=== PATIENT | female | born 1995 | race African-American/Black ===

== ENCOUNTER 2024-11-23 21:34 | Emergency (ER) | payer OTHER, SELFPAY ==
[2024-11-23 21:47] VITALS: BP 104/54; PULSE 72; RESP 20; TEMP 36.8; O2SAT 100
[2024-11-24 00:40] LABS: Add Urine Microscopic? YES; Appearance Urine Clear (Clear); Bacteria Urine Rare /hpf; Bilirubin Urine Negative (Negative); Blood Urine Trace (Negative); Color Urine Yellow (Yellow); Glucose Urine UA Negative (Negative); Ketones Urine Negative (Negative); Leukocyte Esterase Ur Negative LEU/UL (Negative); Nitrate Urine Negative (Negative); Non Pathogenic Casts 0-2; Protein Urine Trace mg/dL (Negative); Specific Grav Ur 1.032 (1.001-1.035); Squamous Epithelial Cell Urine Occasional /hpf (Few); WBC Urine 0-5 /hpf (0-3)
--- NOTE | 2024-11-24 03:06 | ED_ITS ---
HPI - General Adult General Chief complaint: Unspecified Stated complaint: and cramping at 13 weeks Time Seen by Provider: 11/24/24 03:07 History of Present Illness HPI narrative: Patient is a 29-year-old female who presents to the emergency department this evening complaining of lower abdominal cramping in her suprapubic region. Patient states that she is approximately 13 weeks , , and is currently denying any vaginal bleeding or spotting. Patient follows up with [facility] with a leather stretcher and sees Dr. Milian as her OBGYN. She has already had a confirmed intrauterine on ultrasound last week and ultrasound revealed subchorionic hemorrhage which her OBGYN is monitoring. Patient denies any additional symptoms including any nausea or vomiting, any urinary symptoms including dysuria. States that while waiting in the emergency department the abdominal cramping has subsided. Denies any additional symptoms or concerns at this time. Related Data Allergies Allergy/AdvReac Type Severity Reaction Status Date / Time No Known Allergies Allergy Verified 11/23/24 21:46 Review of Systems Review of Systems: All systems are reviewed and are negative unless stated otherwise in the HPI. Exam Narrative: General: Alert, awake, afebrile, in no acute distress. HEENT: PERRL, no rhinorrhea, no post nasal drip, oropharynx clear. Neck: Trachea midline, no JVD, no lymphadenopathy. Cardiovascular: Regular rate and rhythm, no murmurs, rubs or gallops, no peripheral edema. Respiratory: Clear to auscultation bilaterally, no tachypnea, no wheezing, no rhonchi, no rubs, no respiratory distress. Abdomen: Soft, nontender, nondistended, no rebound, no guarding, no peritoneal signs. Musculoskeletal: No joint swelling or deformity, normal muscle tone. Skin: No rashes or petechia, no signs of infection. Psychiatric: Alert and oriented, normal behavior and judgment for situation. Neurological: Alert and oriented to person, place, and time. Follows all commands. No focal deficits, speech is clear and fluent. Course Vital Signs Vital signs: Vital Signs Temperature 98.3 F 11/23/24 21:47 Pulse Rate 72 11/23/24 21:47 Respiratory Rate 20 11/23/24 21:47 Blood Pressure 104/54 L 11/23/24 21:47 Pulse Oximetry 100 11/23/24 21:47 Oxygen Delivery Room Air 11/23/24 21:47 Temperature 98.3 F 11/23/24 21:47 Pulse Rate 72 11/23/24 21:47 Respiratory Rate 20 11/23/24 21:47 Blood Pressure 104/54 L 11/23/24 21:47 Pulse Oximetry 100 11/23/24 21:47 Oxygen Delivery Room Air 11/23/24 21:47 Medical Decision Making MDM Narrative Medical decision making narrative: The patient was evaluated by myself in the emergency department. History is obtained from patient who is an independent historian and physical exam was performed. External medical records were reviewed at this time. Urinalysis was obtained revealing no evidence of UTI, 11-20 RBCs. heart tones were attempted using a Doppler, however, we were unsuccessful in obtaining any heart tones. Patient was informed that overnight we do not have ultrasound to perform a formal OB ultrasound. Bedside ultrasound was performed at this time by me and although I was unsuccessful in calculating the heart tones, patient was able to see movement and heart tati which was comforting for the patient. Patient was informed that she can either wait in the ED for ultrasound to come in in 4 hours and perform a formal ultrasound, she can be scheduled for 1 to be obtained at 7 a.m. or she can follow-up with her OBGYN for the ultrasound. At this time, patient elected to follow-up as an outpatient with her OBGYN. Differential diagnosis considerations include intrauterine demise, normal 2nd trimester cramping, threatened miscarriage. Comorbidities impacting this visit include none. I have evaluated and discussed social determinants of health with the patient that could potentially impact subsequent diagnosis and treatment plans. On repeat assessment of the patient, reevaluation revealed that the patient is doing well and is in no acute distress. Patient symptoms have improved since she arrived to our emergency department. Repeat vital signs were all reviewed and noted to be stable. Differential diagnosis and treatment plan were discussed with the patient at bedside. Patient agrees with discussion and after shared medical decision making agrees with discharge. All questions were answered to the patient's satisfaction. Patient will follow up with her BGYN in 3 days. Patient was provided with strict return precautions and instructed to return to the emergency department if any new or worsening symptoms develop. The patient was discharged in stable condition. Vital Signs Vital Signs: Vital Signs Temperature 98.3 F 11/23/24 21:47 Pulse Rate 72 11/23/24 21:47 Respiratory Rate 20 11/23/24 21:47 Blood Pressure 104/54 L 11/23/24 21:47 Pulse Oximetry 100 11/23/24 21:47 Oxygen Delivery Room Air 11/23/24 21:47 Temperature 98.3 F 11/23/24 21:47 Pulse Rate 72 11/23/24 21:47 Respiratory Rate 20 11/23/24 21:47 Blood Pressure 104/54 L 11/23/24 21:47 Pulse Oximetry 100 11/23/24 21:47 Oxygen Delivery Room Air 11/23/24 21:47 Lab Data Labs: Lab Results 11/24/24 Range/Units 00:25 Urine Color Yellow (Yellow) Urine Appearance Clear (Clear) Urine pH 7.0 (5.0-9.0) Ur Specific [place] 1.032 (1.001-1.035) Urine Protein Trace (Negative) mg/dL Urine Glucose (UA) Negative (Negative) mg/dL Urine Ketones Negative (Negative) mg/dL Ur Blood (Man) Trace (Negative) Urine Nitrate Negative (Negative) Urine Bilirubin Negative (Negative) Urine Urobilinogen 1.0 (<2.0) mg/dL Leukocyte Esterase Rfl Negative (Negative) BESSIE/UL Urine RBC 11-20 H (0-2) /hpf Urine WBC 0-5 (0-3) /hpf Ur Squamous Epith Cells Occasional (Few) /hpf Urine Bacteria Rare /hpf Urine Casts 0-2 Discharge Plan Discharge Clinical Impression: Abdominal cramping, Second trimester Patient Disposition: Home, Self-Care Condition: Improved Instructions: Antibiotic Form, Abdominal Pain in (ED) Additional Instructions: Please follow-up with your OBGYN within the next 2-3 days. Return to the ED if any new or worsening symptoms develop. Patient Language: [place]ik Follow-up/Referrals: Hernán Milian MD [Physician] - 3 Days PHYSICIAN NOT ON STAFF,NONSTAFF [Primary Care Provider] - Time of Disposition: 04:12
[2024-11-24 03:35] LABS: BEDSIDEPREGUCG Positive (Negative)
--- OUTSIDE RECORDS SUMMARY | 2024-11-24 03:51 | XMS_ITS | Data Portability ---
Author Organization [facility] [place] Address [address] [place] [address] Care Team Providers Care Beamer Helper Name Role Phone HOLLIS ZARAGOZA Primary Care Provider Assessment Encounter Date Assessment Date Assessment LastModified by Organization Details LastModified Time 01/05/2023 01/05/2023 normal pp visit Not availab le 01/05/2023 14:57:33 10/17/2024 10/17/2024 Annual gynecological exam performed. Patient will come back in a year unless there are new symptoms. Suggested Calcium with Vitamin D 1200-1500mg daily. Patient advised to get an annual flu shot in the fall and she could obtain at [facility] or [facility] clinic. Also to obtain TDap vaccination if you have not had one in the last 10 years. Recommend yearly mammograms. Encouraged monthly self breast exams. Encourage safe sexual practices, to use condoms and limit partners if not already in a monogamous relationship. Engage in daily exercise of low impact aerobic exercise 45-60 minutes 4-5 times weekly. Avoid tobacco and illicit drugs as well as using moderation with alcohol intake less than 1-2 8 oz beverages daily. This lifestyle behavior pattern will lead to less health conditions and longer life span. If BMI greater than 25 weight watchers or dietary consult advised. All questions have been answ ered. Patient appears to understand information, but if you have any questions please call or respond to this email. pap collected reviewed education and precautions ovarian cyst and subchorionic hemorrhage f/u new ob and first look at 12 weeks Not available 10/17/2024 16:06:44 Plan of Treatment Reminders Order Date Submit Date Provider Last Modified By Organization Details Last Modified Time Details Appointments U/S OB GROWTH 2024 09:30A M ULTRASOUND Not available Not available Not available OB ROUTINE 2024 10:15A M Jammie Silvestre CNM Not available Not available Not available Lab culture , urine 2024 025 [facility] (Lab), [address], [place], [address], 11/17/2024 01:10:10 Referral None recorde d. Procedures None recorde d. Surgeries None recorde d. Imaging US, obstetr ic, nuchal translu cency [address], [address], [place], [address], 11/14/2024 21:43:51 US, obstetr ic, 1st trimest er [address] [facility] [address], [place], [address], 11/14/2024 21:43:51 Medication Orders ondanse lebron 4 mg disinte grating tablet [address]/Pharmacy #[id number], [id number], [address], 10/17/2024 16:07:19 Slynd 4 mg (28) tablet 2022 023 [email or web address] [id number], [address], [place], [id number], 10/17/2024 15:47:18 Patient TargetsNo targets recorded. Patient InstructionsNo instructions recorded. Reason for Referral None Reported. Results Created Date Observation Date Name Description Value Unit Range Abnormal Flag Note LastModifiedBy Organization Detail LastModifiedTime 11/21/19 25 11/21/2024 [UNIT Y] ANEUP LOIDY NIPT fraction 5.1% normal Not Available [facility]hsan monge [address], [place], [address], 11/21/2024 01:56:12 11/21/19 25 11/21/2024 [UNIT Y] ANEUP LOIDY NIPT 22Q11.2 microdeletio n LOW RISK <1 in 10,000 normal Not Available [facility] [address] [facility], [place], [address], 11/21/2024 01:56:12 11/21/19 25 11/21/2024 [UNIT Y] ANEUP LOIDY NIPT sex chromosome aneuploidy NOT DETECT ED normal Not Available [facility] [address] [facility], [place], [address], 11/21/2024 01:56:12 11/21/19 25 11/21/2024 [UNIT Y] ANEUP LOIDY NIPT monosomy X LOW RISK <1 in 10,000 normal Not Available [facility] [address] [facility], [place], [address], 11/21/2024 01:56:12 11/21/19 25 11/21/2024 [UNIT Y] ANEUP LOIDY NIPT trisomy 13 LOW RISK <1 in 10,000 normal Not Available [facility] [address] [facility], [place], [address], 11/21/2024 01:56:12 11/21/19 25 11/21/2024 [UNIT Y] ANEUP LOIDY NIPT trisomy 18 LOW RISK <1 in 10,000 normal Not Available [facility] [address] [facility], [place], [address], 11/21/2024 01:56:12 11/21/19 25 11/21/2024 [UNIT Y] ANEUP LOIDY NIPT trisomy 21 LOW RISK <1 in 10,000 normal Not Available [facility] [address] [facility], [place], [address], 11/21/2024 01:56:12 11/21/19 25 11/21/2024 [UNIT Y] ANEUP LOIDY NIPT sex FEMALE normal Not Available [facility] [address], [place], [address], 11/21/2024 01:56:12 11/21/19 25 11/21/2024 [UNIT Y] ANEUP LOIDY NIPT gestation SINGLE TON normal Not Available [facility] [address], [place], [address], 11/21/2024 01:56:12 11/21/19 25 11/21/2024 [UNIT Y] ANEUP LOIDY NIPT for detailed report, see pdf See PDF normal Not Available [facility] [address], [place], [address], 11/21/2024 01:56:12 10/17/19 25 10/17/2024 IMAGE GUIDE D PAP, REFLE X HPV IF ASCUS ONLY image guided Pap, reflex HPV ASCUS only SEE RESULT S BELOW CASE REPOR T: Cytol ogy Gynec ologi mumtaz Repor t Case: [id number] Autho jorge g Provi bianka: Jammie Nash NP Colle cted: 10/17 1659 Order ing Locat ion: [place] [facility] Recei ritesh: 10/18 0835 First Scree n: Aden [place] , [place] Rescr een: DeLsaba a, Mindy, [place] Speci men: Scree mike Pap - Image d, Cervi x STATE MENT OF ADEQU ACY: Satis facto ry for evalu ation Trans forma tion zone compo nent absen t The absen ce of an endoc ervic al compo nent was confi rmed by an addit ional scree ner. ----- ----- ----- ----- ----- ----- ----- ----- ----- ----- ----- ----- ----- ----- ----- ----- ----- ---- FINAL DIAGN OSIS: Negat mendy for Intra epith elial Lesio n or Flores tavares (NIL) . Shift in pradeep sugge stive of bacte rial vagin osis. Elect heidy amyaa d by Mindy davis, [place] on 2024 at 1742 COMMUNICABLE DISEASE SPECIALIST ----- ----- ----- ----- ----- ----- ----- ----- ----- ----- ----- ----- ----- ----- ----- ----- ----- ---- COMME NT: Slide scree luiza ismael garcia due to rejec tion by the Thinp rep Imagi ng Syste m. CLINI MUMTAZ INFOR MATIO N: Menst rual Statu s: LMP (if appli cable ): Clini mumtaz Histo ry/Pr eviou s Pap: Type of Neopl ellie (if appli cable ): Signi fican t Clini mumtaz Findi ngs: Other Histo ry: Hormo taylor (if appli cable ): PAP EDUCA ERIK L NOTE: The Pap Test is a scree mike test with an inher ent false negat mendy rate. Liqui d-bas ed sampl ing may decre ase, but will not elimi flaquita, false negat mendy resul ts. A negat mendy resul t does not precl ude the prese nce and/o r devel opmen t of disea se, since the prese nce of abnor mal cells in the sampl e depen ds on the locat ion of the lesio n and sampl ing techn ique. Vimal nued regul ar scree mike is the best metho d of cance r preve ntion . If repor etta cytol ogic findi ng do not corre late with physi mumtaz and/o r histo rical findi ngs, furth er inves tigat ion is recom jeremy d, as victoriano simpson nted. Not Available [facility] (Lab) [address], [place], [address], 10/24/2024 18:45:54 10/17/19 25 10/17/2024 TRICH OMONA S VAGIN ANATOLIY (RRNA ) trichomonas vaginalis ribosomal RNA (rrna) Negati ve negati ve Not Available [facility] (Lab) [address], [place], [address], 10/24/2024 18:45:55 10/17/19 25 10/17/2024 CT/GC (STEVEN) , THINP REP VIAL chlamydia trachomatis, PCR Negati ve negati ve Not Available [facility] (Lab) [address], [place], [address], 10/24/2024 18:45:55 10/17/19 25 10/17/2024 CT/GC (STEVEN) , THINP REP VIAL neisseria gonorrhoeae, PCR Negati ve negati ve Not Available [facility] (Lab) [address], [place], [address], 10/24/2024 18:45:55 11/14/19 25 11/14/2024 CBC W/DIF F WBC 7.5 10'3/ uL 3.5-10 .5 Not Available [facility] (Lab) [address], [place], [address], 11/16/2024 01:44:27 11/14/19 25 11/14/2024 CBC W/DIF F RBC 4.24 10'6/ uL (based on docume nted legal sex) 3.80-5 .20 Not Available [facility] (Lab) [address], [place], [address], 11/16/2024 01:44:27 11/14/19 25 11/14/2024 CBC W/DIF F HGB 12.3 g/dL (based on docume nted legal sex) 11.6-1 5.4 Not Available [facility] (Lab) [address], [place], [address], 11/16/2024 01:44:27 11/14/19 25 11/14/2024 CBC W/DIF F HCT 37.0 % (based on docume nted legal sex) 34.0-4 5.0 Not Available [facility] (Lab) [address], [place], [address], 11/16/2024 01:44:27 11/14/19 25 11/14/2024 CBC W/DIF F MCV 87.3 fL 80.0-9 9.0 Not Available [facility] (Lab) [address], [place], [address], 11/16/2024 01:44:27 11/14/19 25 11/14/2024 CBC W/DIF F MCH 29.0 pg 27.0-3 4.0 Not Available [facility] (Lab) [address], [place], [address], 11/16/2024 01:44:27 11/14/19 25 11/14/2024 CBC W/DIF F MCHC 33.2 g/dL 32.0-3 5.5 Not Available [facility] (Lab) [address], [place], [address], 11/16/2024 01:44:27 11/14/19 25 11/14/2024 CBC W/DIF F RDW 12.9 % 11.0-1 5.0 Not Available [facility] (Lab) [address], [place], [address], 11/16/2024 01:44:27 11/14/19 25 11/14/2024 CBC W/DIF F plt 356 10'3/ uL 150-40 0 Not Available [facility] (Lab) [address], [place], [address], 11/16/2024 01:44:27 11/14/19 25 11/14/2024 CBC W/DIF F MPV 10.6 fL 8.8-12 .1 Not Available [facility] (Lab) [address], [place], [address], 11/16/2024 01:44:27 11/14/19 25 11/14/2024 CBC W/DIF F neutrophils 65.2 % 34.0-7 3.0 Not Available [facility] (Lab) [address], [place], [address], 11/16/2024 01:44:27 11/14/19 25 11/14/2024 CBC W/DIF F lymphocytes 24.7 % 15.0-5 0.0 Not Available [facility] (Lab) [address], [place], [address], 11/16/2024 01:44:27 11/14/19 25 11/14/2024 CBC W/DIF F monocytes 8.0 % 1.0-15 .0 Not Available [facility] (Lab) [address], [place], [address], 11/16/2024 01:44:27 11/14/19 25 11/14/2024 CBC W/DIF F eosinophils 0.9 % 0.0-8. 0 Not Available [facility] (Lab) [address], [place], [address], 11/16/2024 01:44:27 11/14/19 25 11/14/2024 CBC W/DIF F basophils 0.7 % 0.0-2. 0 Not Available [facility] (Lab) [address], [place], [address], 11/16/2024 01:44:27 11/14/19 25 11/14/2024 CBC W/DIF F immature granulocytes 0.5 % no define d refere nce range Immat ure Granu locyt es (IG) repre sents autom ated enume ratio n of Metam yeloc ytes, Myelo cytes and Promy elocy marimar when IG is < 5%. Blast s are not inclu ded in IG and repor etta separ ately if prese nt. Not Available [facility] (Lab) [address], [place], [address], 11/16/2024 01:44:27 11/14/19 25 11/14/2024 CBC W/DIF F absolute neutrophils 4.9 10'3/ uL 1.5-8. 0 Not Available [facility] (Lab) [address], [place], [address], 11/16/2024 01:44:27 11/14/19 25 11/14/2024 CBC W/DIF F absolute lymphocytes 1.9 10'3/ uL 1.0-4. 0 Not Available [facility] (Lab) [address], [place], [address], 11/16/2024 01:44:27 11/14/19 25 11/14/2024 CBC W/DIF F absolute monocytes 0.6 10'3/ uL 0.2-1. 0 Not Available [facility] (Lab) [address], [place], [address], 11/16/2024 01:44:27 11/14/19 25 11/14/2024 CBC W/DIF F absolute eosinophils 0.1 10'3/ uL 0.0-0. 6 Not Available [facility] (Lab) [address], [place], [address], 11/16/2024 01:44:27 11/14/19 25 11/14/2024 CBC W/DIF F absolute basophils 0.1 10'3/ uL 0.0-0. 3 Not Available [facility] (Lab) [address], [place], [address], 11/16/2024 01:44:27 11/14/19 25 11/14/2024 CBC W/DIF F absolute immature granulocytes 0.0 10'3/ uL 0.00-0 .10 Refer ence range s for nonbi nary/ inter sex or unspe cifie d gende r patie nts have not been estab lishe d. Pleas e refer to the follo wing table for range s estab lishe d for cisge nder patie nts and evalu ate in the clini mumtaz charlie xt of the indiv idual patie nt: https :[email or web address] linetteand book. nm.or g/Gen derX Not Available [facility] (Lab) [address], [place], [address], 11/16/2024 01:44:27 11/14/19 25 11/14/2024 HEPAT ITIS C ANTIB NIMISHA SCREE N, REFLE X TO CONFI RMATI ON hepatitis C antibody Non-re active non-re active Antib odies to HCV Not Detec etta, does not exclu de the possi bilit y of expos ure to HCV. Not Available [facility] (Lab) [address], [place], [address], 11/16/2024 01:44:28 11/14/19 25 11/14/2024 HIV 1/2 ANTIG EN/AN TIBOD Y, REFLE X CONFI RMATI ON HIV antigen/anti body Nonrea ctive nonrea ctive HIV-1 antig en and HIV-1 /HIV- 2 antib odies were not detec etta. No labor atory evide nce of HIV infec tion. Not Available [facility] (Lab) [address], [place], [address], 11/16/2024 01:44:28 11/14/1911/14/2024 HEPAT ITIS B SURFA CE ANTIG EN hepatitis B surface antigen Non-re active non-re active This assay was perfo rmed using [employer] ratio n reage nts and test kits. Value s obtai luiza with other assay metho ds or kits canno t be used inter alvarez eably . Not Available [facility] (Lab) [address], [place], [address], 11/16/2024 01:44:28 11/14/19 25 11/14/2024 TSH, REFLE X FREE T4 TSH 2.25 uIU/m L 0.30-5 .33 Not Available [facility] (Lab) [address], [place], [address], 11/16/2024 01:44:29 11/14/19 25 11/14/2024 RUBEL LA IGG ANTIB NIMISHA, QUANT rubella antibodies, IgG Reacti ve reacti ve Not Available [facility] (Lab) [address], [place], [address], 11/16/2024 01:44:29 11/14/19 25 11/14/2024 RUBEL LA IGG ANTIB NIMISHA, QUANT rubella antibodies, IgG quant 88.9 IU/mL >=10 Non-r eacti ve (Non- Immun e) <10 IU/mL React mendy (Immu ne) > or = 10 IU/mL Not Available [facility] (Lab) [address], [place], [address], 11/16/2024 01:44:29 11/14/19 25 11/14/2024 TYPE/ RH/SC REEN ABO/Rh type A POS Not Available [facility] (Lab) [address], [place], [address], 11/16/2024 01:44:29 11/14/19 25 11/14/2024 TYPE/ RH/SC REEN antibody screen NEG Not Available [facility] (Lab) [address] [place], [address], 11/16/2024 01:44:29 11/14/19 25 11/14/2024 TYPE/ RH/SC REEN exp date 2024 23:59 Not Available [facility] (Lab) [address], [place], [address], 11/16/2024 01:44:29 11/14/19 25 11/14/2024 HEMOG LOBIN A1C hemoglobin A1C 4.6 % 4.0-5. 6 The Ameri can Diabe marimar [employer] iatio n recom mends that a prima ry goal of ruma pacheco be a HBA1C of < 7% and that physi negro pacheco reeva luate the treat ment regim en in patie nts with HBA1C value s consi stent ly > 8%. <5.7% Josselyn l 5.7 - 6.4% Incre ased risk for diabe marimar >=6.5 % Diagn ostic of diabe marimar <7.0% Goal of thera py >8.0% Actio n sugge sted Not Available [facility] (Lab) [address], [place], [address], 11/16/2024 01:44:29 11/14/1911/14/2024 RPR SCREE N, REFLE X TITER /CONF IRMAT ION RPR screen Nonrea ctive nonrea ctive Not Available [facility] (Lab) [address], [place], [address], 11/16/2024 01:44:30 11/14/1911/14/2024 CULTU RE: URINE result report SEE RESULT S BELOW Test: Cultu re: Urine Speci men Sourc e: Urine - Clean Catch Speci men Type: Urine Speci men Date: 2024 1430 Resul t Date: 2024 0006 Resul t Statu s: Final resul t Abnor mal: No Resul ting Lab: [facility] [address] [facility] [address] Tel: CULTU RE ----- ----- ----- --- Organ ism(s ) consi stent with uroge nital or skin pradeep . Repea t cultu re if sympt oms indic ate. Not Available [facility] (Lab) [address], [place], [address], 11/17/2024 01:10:10 10/17/1910/17/2024 US, obste tric, 1st trime ster No observ ation record ed. [email or web address] [address] [facility], [place], [address], 10/17/2024 18:04:25 11/14/19 25 11/14/2024 US, obste tric, nucha l trans lucen cy No observ ation record ed. [email or web address] [place] [address], [place], [address], 11/14/2024 12:49:58 11/14/19 25 11/14/2024 US, obste tric, 1st trime ster No observ ation record ed. [email or web address] [place] [address], [place], [address], 11/14/2024 12:50:09 11/14/19 25 11/14/2024 US, obste tric, follo w-up No observ ation record ed. [address], [place], [address], 11/20/2024 09:41:13 Result Notes None recorded. Problems Name Problem SNOMED Code Status Onset Date Resolution Date Notes Provider Name and Address Organization Details Recorded Time Pregnanc y 57531790 Completed 202101/05/2023 Emily chaney [facility] 5 11:24:34 Transien t hyperten boris of pregnanc y - delivere d 062403108 Completed late in ttrimest er delivere d at 38 weeks Emily chaney [facility] 3 14:27:48 Lesion of vulva 614318951 Completed subcutan eous vulvar nodule 1 cm, mobile, smooth, feels benign. To observe. Emily chaney [facility] 3 14:27:48 Family history of leukemia 998485397 Completed daughter - Dx at 3 y/o Emily chaney [facility] 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 3 14:27:48 Acute depressi on 595161326 Completed zoloft 07/23 Emily Rivas null, [facility] 3 14:27:48 Low back pain 093464168 Completed flank pain, left side Emily Oswaldyessi chaney, [facility] 3 14:27:48 Anemia 681710654 Completed 2021 slowfe 1 tab daily Emily chaney, [facility] 3 14:27:48 Pregnanc y 73595517 Active 2024 Emily Rivas ritu [facility] 5 11:24:34 Problem Notes None recorded. Procedures Surgical History Date Name Laterality Status Provider Name and Address Organization Details Recorded Time 10/17/19 25 Date of Last Pap Smear completed Emily Rivas [facility] 10/17/2024 15:55:13 10/17/19 21 Nexplanon Removal completed Jammie Silvestre CNM [address], [place], [address], [facility] 10/17/2020 14:29:39 10/03/19 13 extraction of wisdom tooth completed Emily Rivas [facility] 10/01/2022 11:01:55 Imaging Results Imaging Date Name Status LastModified by Organization Details LastModified Time 10/17/2024 US, obstetric, 1st trimester completed daniel [address], [place], [address], 10/17/2024 18:04:25 11/14/2024 US, obstetric, nuchal translucency completed [email or web address] [place] [address], [place], [address], 11/14/2024 12:49:58 11/14/2024 US, obstetric, 1st trimester completed [email or web address] [place] [address], [place], [address], 11/14/2024 12:50:09 11/14/2024 US, obstetric, follow-up completed [email or web address] [facility], [place], [address], 11/20/2024 09:41:13 Procedure Notes None recorded. Medical Equipment None Reported. Allergies No known drug allergies Medications Name Sig Start Date Stop Date Status Note LastModified by Organization Details LastModified Time prednison e 10 mg tablet 02/08 completed Not Available Not Available Not Available loperamid e 2 mg capsule 10/17 completed Not Available Not Available Not Available metronida zole 500 mg tablet TAKE 1 TABLET BY MOUTH EVERY 12 HOURS FOR 7 DAYS 11/14 completed Not Available Not Available Not Available Tamiflu 75 mg capsule Take 1 capsule every day by oral route as directed for 10 days. 2024 active Not Available Not Available Not Avai lable acetamino phen 500 mg tablet 10/17 completed Not Available Not Available Not Available levothyro xine 25 mcg tablet TAKE 1 TABLET BY MOUTH EVERY DAY 11/24 completed Not Available Not Available Not Available levothyro xine 75 mcg tablet TAKE 1 TABLET BY MOUTH EVERY DAY 10/17 completed Not Available Not Available Not Available amoxicill in 875 mg tablet 10/17 completed Not Available Not Available Not Available benzonata te 100 mg capsule TAKE 1 CAPSULE BY MOUTH THREE TIMES A DAY NEEDED FOR COUGH 10/17 completed Not Available Not Available Not Available levothyro xine 50 mcg tablet TAKE 1 TABLET BY MOUTH EVERY DAY 11/24 completed Not Available Not Available Not Available lidocaine 5 % topical patch 10/17 completed Not Available Not Available Not Available norethind elvis acetate 1 mg-ethiny l estradiol 20 mcg tablet TAKE 1 TABLET BY MOUTH EVERY DAY 10/17 completed Not Available Not Available Not Available ibuprofen 600 mg tablet 10/17 completed Not Available Not Available Not Available methylpre dnisolone 4 mg tablets in a dose pack TAKE 6 TABLETS ON DAY 1 DIRECTED ON PACKAGE AND DECREASE BY 1 TAB EACH DAY FOR A TOTAL OF 6 DAYS 10/17 completed Not Available Not Available Not Available ondansetr on 4 mg disintegr ating tablet Place 1 tablet every 8 hours by translin gual route. active Not Available Not Available No t Available sertralin e 50 mg tablet TAKE 1/2 TABLET BY MOUTH DAILY FOR 1 WEEK THEN TAKE 1 TABLET BY MOUTH DAILY 10/17 completed Not Available Not Available Not Available amoxicill in 875 mg-potass ium clavulana te 125 mg tablet TAKE ONE TABLET 2 TIMES A DAY UNTIL GONE 10/17 completed Not Available Not Available Not Available nitrofura ntoin monohydra te/macroc rystals 100 mg capsule TAKE 1 CAPSULE BY MOUTH EVERY 12 HOURS 09/17 completed Not Available Not Available Not Available Vitamin active Not Available Not Available Not Available Nexplanon 68 mg subdermal implant Inject by subcutan eous route. 02/08 completed nexplano n inserted 8 and will 1 Not Available Not Available Not Available Simpesse 0.15 mg-30 mcg (84)/10 mcg(7) tablets,3 month dose pack Take 1 tablet every day by oral route. 10/17 completed Not Available Not Available Not Available Slynd 4 mg (28) tablet Take 1 tablet every day by oral route. 10/17 completed Not Available Not Available Not Available Paxlovid 300 mg (150 mg x 2)-100 mg tablets in a dose pack PLEASE SEE ATTACHED FOR DETAILED DIRECTIO NS 10/17 completed Not Available Not Available Not Available Vitals Date Recorded Body height Body mass index (BMI) Body weight Systolic blood pressure Diastolic blood pressure Provider Name and Address Organization Details Last Updated DateTime 01/05/2023 160.02 cm 33.7 kg/m2 34921.55 g 86 mm[Hg] 60 mm[Hg] Emily Rivas [facility] 3 14:40:05 Date Recorded Body height Body mass index (BMI) Body weight Systolic blood pressure Diastolic blood pressure Provider Name and Address Organization Details Last Updated DateTime 10/17/2024 160.02 cm 32.8 kg/m2 31481.59 g 100 mm[Hg] 63 mm[Hg] Emily Rivas [facility] 5 15:46:42 Date Recorded Body height Body mass index (BMI) Body weight Systolic blood pressure Diastolic blood pressure Provider Name and Address Organization Details Last Updated DateTime 11/14/2024 160.02 cm 32.1 kg/m2 40041.22 g 97 mm[Hg] 65 mm[Hg] Emily Rivas [facility] 5 11:23:13 Social History Question Answer Notes LastModified by Organizat ion Details LastModified Time Tobacco Smoking Status Never Smoker María Galvin ritu, [facility] 05/05/2022 14:01:05 What Is Your Level Of Alcohol Consumption? None [email or web address] Information not available 10/17/2024 If You Are , What Was Your Level Of Alcohol Consumption Prior To ? Occasional [email or web address] Information not available 05/05/2022 Are You Blind Or Do You Have Difficulty Seeing? No Information n ot available 02/08/2022 What Is Your Level Of Caffeine Consumption? Moderate [email or web address] Information not available 10/17/2020 In The 14 Days Before Symptom Onset, Have You Had Close Contact With A Laboratory-confirm ed COVID-19 While That Case Was Ill? No [email or web address] Information n ot available 11/05/2022 In The 14 Days Before Symptom Onset, Have You Had Close Contact With A Person Who Is Under Investigation For COVID-19 While That Person Was Ill? No [email or web address] Information not available 11/05/2022 Have You Been To An Area Known To Be High Risk For COVID-19? No [email or web address] Information not available 11/05/2022 Are You Deaf Or Do You Have Serious Difficulty Hearing? No Information not available 02/08/2022 What Type Of Diet Are You Following? REGULAR Information n ot available 02/08/2022 Have You Ever Been Counseled For Unhealthy Alcohol Use? No [email or web address] Information not available 05/05/2022 Do You Use Your Seat Belt Or Car Seat Routinely? Yes Information not available 11/05/2022 Do You Have Smoke And Carbon Monoxide Detectors In Your Home? Yes [email or web address] Information not available 11/05/2022 Do You Feel Stressed (tense, Restless, Nervous, Or Anxious, Or Unable To Sleep At Night)? [id number] [email or web address] Information not available 11/05/2022 Do You Use Any Illicit Or Recreational Drugs? No [email or web address] Information not available 10/17/2020 Do You Use Sunscreen Routinely? Yes [email or web address] Information not available 11/05/2022 Has Tobacco Cessation Counseling Been Provided? No [email or web address] Information not available 05/05/2022 Do You Or Have You Ever Used Any Other Forms Of Tobacco Or Nicotine? No [email or web address] Information not available 05/05/2022 Sex: Unknown Functional Status Question Answer Note LastModified by Organizat ion Details LastModified Time Do you have difficulty walking or climbing stairs? No [email or web address] Information not available 05/05/2022 Are you able to walk? [email or web address] Information not available 02/08/2022 Are you able to care for yourself? Yes [email or web address] Information not available 05/05/2022 Do you have difficulty dressing or bathing? No [email or web address] Information not available 05/05/2022 What is your exercise level? Moderate [email or web address] Information not available 10/17/2020 Mental Status None recorded. Family History Relationship Description Onset Age of this Age Resolved Age Notes LastModified by Organization Details LastModified Time Mother Asthma [email or web address] Not available 05/05/2022 14:53:55 Mother Hypertensive disorder [email or web address] Not available 05/05 14:53:55 Sister Asthma Not available 05/05/2022 14:53:55 Sister Hypertensive disorder [email or web address] Not available 05/05 14:53:55 Father Heart disease [email or web address] Not available 05/05 14:53:55 Father Diabetes mellitus Not available 05/05 14:53:56 Father Malignant tumor of kidney [email or web address] Not available 2024 14:58:05 Maternal Grandfather Seizure disorder [email or web address] Not available 2024 14:58:05 Medical History Condition Response Allergies (Food, seasonal, environmental ) N Other N Breast Cancer N Blood Transfusion N Drug/Latex Allergies/Reactions N Dermatologic Disorders N Lung Disease N Defects or Inherited Disease N Breast Problem N Gestational Diabetes N Hematologic disorders N Anesthesia Complications N History of STI N Deep Vein Thrombosis N Polycystic ovary syndrome N Anxiety Disorder Y Autoimmune disease N Arthritis N Polyps N Infertility N Acid Reflux (GERD) N History of abnormal pap N Cancer N Varicosities N Stroke N Neurologic/Epilepsy N Endometriosis N High Cholesterol N Fibromyalgia N Headaches N Kidney Disease N Heart Problems N Thyroid Problems Y Kidney or Bladder Problems N GI Problems N Eating Disorder N Anemia N Art (IVF or FET) N Psychiatric Illness N Ovarian Cancer N Diabetes N Pulmonary (TB, Asthma) N Hepatitis/Liver Disease N Eczema N Urinary Tract Infection N Abuse/Domestic Violence N Asthma N Trauma/Violence N Depression/ depression Y Heart Disease N Pre-Eclampsia N Hypertension N Osteoporosis N Thrombophilias N Gynecological History Statement/Question Response Flow Moderate Date of Last Mammogram Date of LMP 08/21/2024 STIs/STDs N HPV Vaccine N Duration of Flow (days) 5 Current Control Method Date of Last Colonoscopy Sexually Active? Y Menses Monthly Y Date of DEXA bone scan Age of first menstrual cycle 14 Date of Last Pap Smear 10/17/2024 Sexual Problems? N Desired Control Method LMP Definite Obstetrics History GPAL:G 3 P 2 0 0 2 Type Value Full Term 2 Living 2 Total 3 Past Encounters Encounter ID Performer Location Encounter Start Date Encounter Closed Date Diagnosis/Indication Diagnosis SNOMED-CT Code Diagnosis ICD10 Code Diagnosis Note [id number] Jammie Silvestre CNM [facility] [address] [address] 10/17/2020 13:50:46 10/17/2020 14:35:30 Gynecologic examination [id number] Z01.419 [facility] management [id number] Z30.9 [id number] HILLARY Ruffin [facility] [address],[place] [address] 02/08/2022 12:08:42 02/08/2022 14:09:54 Gynecologic examination 09219125 Z01.419 Take Calcium with Vitamin D 1200mg daily if not receiving in daily diet. It is strongly advised to have an annual flu shot and up can obtain at most pharmacies . If you have not had a TDap shot in the last 10 years you should obtain one as well. Discussed with patient & provided with informatio n regarding Gardisil vaccine to prevent the 4 strains for HPV that cause cervical cancer if under age 26. Encourage safe sexual practices, to use condoms and limit partners if not already in a monogamous relationsh ip. Do monthly self breast exams. Have mammogram yearly or every other year depending on family history. BRCA testing is now available for patients with strong genetic history of female cancer. If interested contact the office. Engage in daily exercise of low impact aerobic exercise 45-60 minutes 4-5 times weekly. Avoid tobacco and illicit drugs as well as using moderation with alcohol intake less than 1-2 8 oz beverages daily. This lifestyle behavior pattern will lead to less health conditions and longer life span. If BMI greater than 25 weight watchers or dietary consult advised. Patient received above instructio ns, and questions have been answered. If you have any questions please call or respond to this email. Patient was made aware of the patient portal and may obtain a paper copy of today's plan if desired. WWJose, is also having pain with intercours e for the last 1-2 weeks. Pain is upon entry and with deep penetratio n. She has had this pain before and it has went away on its own. She is using control pills for contracept ion, happy with this method. Has been off her pills for about a month due to running out, has had unprotecte d intercours e. Will do urine hcg, pap today, STI testing, and RTC for pelvic u/s. We discussed use of coconut oil/crisco as lubricatio n with intercours e.No hx of abnormal paps, pap done todayRx for control sent to patient pharmacy, start on first day of next menses. She denies hx of DVT/PE, liver disease, cancer, stroke/ME, or migraine with aura. Risk and benefits discussed and accepted by patient.RT C for pelvic u/s and f/u appointmen t. Time spent with the patient was over 30 minutes [facility] [id number] Z30.9 Dyspareunia 95806679 N94 .10 Screening procedure 2012 5006 Z13.9 [id number] [facility] [address],[place] [address] 05/05/2022 13:59:00 05/05/2022 14:27:02 [id number] [facility] [address],[place] [address] 05/05/2022 14:01:34 05/05/2022 15:33:03 test positive [id number] Z32.01 Amenorrhea 68945114 N91. 2 [id number] Karyna Bonilla [facility] [address],[place] [address] 05/27/2022 09:27:17 05/27/2022 10:17:38 Routine care [id number] Z34.90 [id number] Hernán Milian MD [facility] [address],[place] [address] 05/27/2022 09:28:23 05/27/2022 11:11:32 Routine care 170007904 Z34.90 [id number] Hernán Milian MD [facility] [address],[place] [address] 06/21/2022 13:49:24 06/21/2022 14:42:51 Routine care [id number] Z34.90 [id number] Jammie Silvestre [facility] [address],[place] [address] 07/23/2022 11:25:10 07/23/2022 14:23:00 Routine care [id number] Z34.92 [facility] [id number] E03.9 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 Nausea and vomiting 1693 2000 R11.2 [id number] Karyna Bonilla [facility] [address],[place] [address] 07/23/2022 11:24:28 07/23/2022 14:28:01 screening [id number] Z36.3 [id number] Willow Kerr [facility] [address],[place] [address] 08/16/2022 14:19:33 08/16/2022 15:45:06 screening 125295078 Z36.2 [id number] Hernán Milian MD [facility] [address],[place] [address] 08/16/2022 14:19:58 08/16/2022 16:45:29 Hypothyroidism 52256152 E03.9 Routine an tenatal care 022864909 Z34.90 [id number] Hernán Milian MD [facility] [address],[place] [address] 09/06/2022 16:43:12 09/06/2022 17:37:56 Urinary symptoms 541082272 R39.9 Left flank pain 49400932 9 R10.9 [id number] Jammie Slivestre [facility] [address],[place] [address] 09/17/2022 13:50:43 09/17/2022 14:57:54 Routine care 172483354 Z34.92 [id number] Jammie Silvestre [facility] [address],[place] [address] 10/01/2022 10:26:16 10/01/2022 12:58:29 Routine care [id number] Z34.92 [id number] Mandie Ashtonjulianne [facility] [address],[place] [address] 10/18/2022 15:47:49 10/19/2022 17:12:33 Routine care 960723782 Z34.93 Hypothyroi dism in 347933415 E03.9 [id number] [facility] [address],[place] [address] 11/05/2022 12:44:40 11/05/2022 13:24:46 Routine care 017042127 Z34.92 [id number] [facility] [address],[place] [address] 11/17/2022 10:59:55 11/17/2022 11:59:40 Uterine size for dates discrepancy 662565655 O26.843 Z3A.36 [id number] Jammie Silvestre [facility] [address],[place] [address] 11/17/2022 11:00:24 11/17/2022 12:25:13 Routine care 297913098 Z34.92 [id number] Jammie Silvestre [facility] [address],[place] [address] 11/24/2022 09:28:15 11/24/2022 10:11:58 Routine care 225037713 Z34.92 [id number] Jammie Silvestre [facility] [address],[place] [address] 12/01/2022 12:36:47 12/01/2022 13:04:55 Routine care 512311420 Z34.92 [id number] Emily Rivas [facility] [address],[place] [address] 01/05/2023 14:30:37 01/05/2023 14:59:29 care 601285430 Z39.2 may have generic pop if too expensive, f/u 6 mo wwe [id number] Jillian [facility] [address],[place] [address] 10/17/2024 14:57:42 10/17/2024 15:30:30 [id number] Jammie Silvestre [facility] [address],[place] [address] 10/17/2024 14:58:14 10/17/2024 16:35:14 Amenorrhea 87665978 N91.2 Gynecologi c examination 65221264 Z01.419 Nausea and vomiting 1693 1999 R11.2 [id number] Willow Kerr [facility] [address],[place] [address] 11/14/2024 10:16:37 11/14/2024 11:06:49 screening 833375774 Z36.82 Z3A.12 [id number] Jammie Silvestre [facility] [address] [address] 11/14/2024 10:21:24 11/14/2024 12:29:18 Routine care 014186558 Z34.92 Health Concerns Section Related Observation LastModified by Organization Detai ls LastModified Time None Recorded Concern Status LastModified by Organization Details LastModified Time None Recorded Advance Directives Directive None Recorded Payers Encounter Date Sequence Insurance Name Policy Number Policy Tomas Covered Member ID Tomas Member ID Guarantor Name 01/05/2023 1 EAST - DOS PRIOR TO 2024 - [employer] - [place] ( - PPO) Romelia Pozo [id number] Romelia Pozo 10/17/2024 1 WEST - [employer] - [place] ( - PPO) Romelia Pozo [id number] Romelia Pozo 10/17/2024 1 WEST - [employer] - [place] ( - PPO) Romelia Pozo [id number] Romelia Pozo 11/14/2024 1 WEST - [employer] - [place] ( - PPO) Romelia Pozo [id number] Romelia Pozo 11/14/2024 1 WEST - [employer] - [employer] ( - PPO) Romelia Pozo [id number] Romelia Pozo Notes Date Note Type Note Provider Name and Address Organization Details Recorded Time 01/05/2023 text/html VisitReported bypatient.Quality:N Context:complicatio ns of : none; complications of labor: none; complications: none; feeding choice: breast; good support from partner/family; resumed menstrual bleeding no Associated Symptoms:no abnormal bleeding; no vaginal discharge; no pelvic pain; no fecal incontinence; no dysuria; no urinary incontinence; no fever; no problems; no mastitis; normal mood Contraception Plan:progesterone only pillNotes:doing well, baby doing great Emily chaney [facility] 01/05/2023 18:49:04 10/17/2024 text/html Annual GYNReport ed bypatient.History:n o gynecologic complaints; actively trying to conceive Menstrual cycle:Normal menses Urinary symptoms:No hematuria; No incontinence Vulva:No genital lesion Vagina:Normal vaginal discharge Breast:No breast pain; No breast lump; No nipple discharge Sexual complaints:No sexual complaints; No pain during intercourse; Normal libido Menopausal Symptoms:No menopausal symptoms; Normal vaginal lubrication Psychological symptoms:No depression; No anxiety; No PMDD Preventive measures:Encourage self breast examination; Encourage regular exercise; Encourage no tobacco useNotes:+UPT some nausea Jammie Silvestre, [facility] [address], [place], [address], [facility] 10/17/2024 16:07:28 OBGyn Episode Ob Episode Information Episode Created Date Number of Fetuses Patient Bloodtype Patient rh Status Prepregnancy Weight lbs Domestic Partner Domestic Partner Phone Father Name Radiosonde Operator Status 10/17/19 21 1 CLOSED Fetus Data First Name Last Name Admitted to NICU Weight (g) Sex Living Outcome Pediatric Complications Fetus ID Race Codes Race Delivery Type 2806.37 3704 F Full Term 7158 Vaginal Delivery Seymour Calculation Initial Seymour Date Initial Exam Date Initial Exam Provider Initial Ultrasound Date Last Menstrual Period Date Ultra Sound Weeks Gestation 0 Eighteen To Twenty Week Seymour Update Ultra Sound Date Fundal Height At Umbil Quickening Date Ultra Sound Latest Weeks Gestation Final Seymour Confirmed By Final Seymour Confirmed Date Final Seymour Date Ultra Sound Latest Days Gestation 0 0 Menstrual History Last Menstrual Date Menses Monthly On Bcp Conception Prior Menses Frequency Hcg Plus Date Menarche Onset Age Delivery Information Delivery Date Delivery Type Labor Anesthesia Weeks Gestation Incision Type Labor Labor Length Hrs Delivered By Post Complications Tubal Sterilization Discharge Date Comments 8 38 Discharge Information Feeding Method Contraceptive Method Maternal HG B and HCT Levels Ob Episode Information Episode Created Date Number of Fetuses Patient Bloodtype Patient rh Status Prepregnancy Weight lbs Domestic Partner Domestic Partner Phone Father Name Radiosonde Operator Status 05/27/20 22 1 A Positive 208 CLOSED Fetus Data First Name Last Name Admitted to NICU Weight (g) Sex Living Outcome Pediatric Complications Fetus ID Race Codes Race Delivery Type 3458.63 9 M Full Term [id number] Vaginal Delivery Problems Problem Notes WANTS TO BANK BABY'S CORD BLOOD!! Problem Name Start Date End Date Resolution Snomed Code Not e Low back pain [id number] flank pain, left side Acute depression 534267338 zol oft 07/23 Transient hypertension of - delivered 335463143 late in 3rd ttrimester delivered at 38 weeks Lesion of vulva 401652727 subc utaneous vulvar nodule 1 cm, mobile, smooth, feels benign. To observe. Family history of leukemia [id number] daughter - Dx a t 3 y/o Anemia 09/20/2022 MEDICATION 288362941 slowfe 1 tab daily Hypothyroidism MEDICATION 46800276 in p regnancy; 07/26 inc to 50mcg daily, repeat around 11/18 Seymour Calculation Initial Seymour Date Initial Exam Date Initial Exam Provider Initial Ultrasound Date Last Menstrual Period Date Ultra Sound Weeks Gestation 12/14/2022 05/27/2022 05/05/2022 03/09/2022 8 Eighteen To Twenty Week Seymour Update Ultra Sound Date Fundal Height At Umbil Quickening Date Ultra Sound Latest Weeks Gestation Final Seymour Confirmed By Final Seymour Confirmed Date Final Seymour Date Ultra Sound Latest Days Gestation 0 [email or web address] 05/27/2022 12/15/19 23 0 Pre-charli Flowsheet Flowsheet Date 05/27/2022 Loya Score Blood Edema Fundus Height Fundus Units Glucose Ketones Leukocytes Nitrite Labor Signs Protein Cervic Dilation Cervic Effacement Cervic Station 11 Type Weight in lbs Pre/Post Dialysis Refused Weight 207.663794416875 BP Diastolic BP Location Tested BP Systolic BP Type 68 R arm 102 sitting Fetus Heart Rate Present A 155 Fetus Movement Comments this patient is a 26-year-ol d 2 para 1001 at 11 weeks gestation who presents for initial care. She has history of gestational hypertension, she has a child that got leukemia at 2 years old. She is vaccinated for COVID. She was given vaccine recommendations. They are getting genetic screening For the baby. Considering cystic fibrosis, SMA testing. A subcutaneous nodule of was addressed on the vulva in the inferior left labia majora. It is about 1 cm mobile nodule. It appears benign. We will observe. Flowsheet Date 06/21/2022 Loya Score Blood Edema Fundus Height Fundus Units Glucose Ketones Leukocytes Nitrite Labor Signs Protein Cervic Dilation Cervic Effacement Cervic Station 16 Type Weight in lbs Pre/Post Dialysis Refused Weight 208.726048553144 BP Diastolic BP Location Tested BP Systolic BP Type 69 R arm 106 sitting Fetus Heart Rate Present A 145 Fetus Movement A No Comments HAs, not sleeping well , sub clinical hypothyroidism, started on 25 mcg of levothyroxine, given recommendations for headache. Flowsheet Date 07/02/2022 Loya Score Blood Edema Fundus Height Fundus Units Glucose Ketones Leukocytes Nitrite Labor Signs Protein Cervic Dilation Cervic Effacement Cervic Station Type Weight in lbs Pre/Post Dialysis Refused BP Diastolic BP Location Tested BP Systolic BP Type Fetus Heart Rate Present Fetus Movement Comments Flowsheet Date 07/23/2022 Loya Score Blood Edema Fundus Height Fundus Units Glucose Ketones Leukocytes Nitrite Labor Signs Protein Cervic Dilation Cervic Effacement Cervic Station Type Weight in lbs Pre/Post Dialysis Refused BP Diastolic BP Location Tested BP Systolic BP Type Fetus Heart Rate Present Fetus Movement Comments Flowsheet Date 07/23/2022 Loya Score Blood Edema Fundus Height Fundus Units Glucose Ketones Leukocytes Nitrite Labor Signs Protein Cervic Dilation Cervic Effacement Cervic Station neg none none trace Type Weight in lbs Pre/Post Dialysis Refused Weight 204.824447007828 BP Diastolic BP Location Tested BP Systolic BP Type 63 99 Fetus Heart Rate Present Fetus Movement A Yes Comments Patient c/o more discharge, and little appetite, anatomy incomplete reviewed precautions, here with to talk about depression denies suicidal thought, list of counselors given, lots to do, disc risks benefits of meds, will start with zoloft, in case of suicidal thoughts to ED immediately, will f/u mood next visithypothyroid in check labs today Flowsheet Date 08/16/2022 Loya Score Blood Edema Fundus Height Fundus Units Glucose Ketones Leukocytes Nitrite Labor Signs Protein Cervic Dilation Cervic Effacement Cervic Station Type Weight in lbs Pre/Post Dialysis Refused BP Diastolic BP Location Tested BP Systolic BP Type Fetus Heart Rate Present Fetus Movement Comments Flowsheet Date 08/16/2022 Loya Score Blood Edema Fundus Height Fundus Units Glucose Ketones Leukocytes Nitrite Labor Signs Protein Cervic Dilation Cervic Effacement Cervic Station 22. Type Weight in lbs Pre/Post Dialysis Refused Weight 204.704125136114 BP Diastolic BP Location Tested BP Systolic BP Type 64 R arm 100 sitting Fetus Heart Rate Present A 145 Fetus Movement A Yes Comments thyroid testing today, follo w-up on hypothyroidism, medication changes few weeks back for thyroid, mood is stable Flowsheet Date 09/06/2022 Loya Score Blood Edema Fundus Height Fundus Units Glucose Ketones Leukocytes Nitrite Labor Signs Protein Cervic Dilation Cervic Effacement Cervic Station neg none none neg Type Weight in lbs Pre/Post Dialysis Refused Weight 205.789676552774 BP Diastolic BP Location Tested BP Systolic BP Type 64 L arm 94 sitting Fetus Heart Rate Present Fetus Movement Comments patient reports severe flank pain. It is on the left side. It does not radiate. It is worse with movement. It is a sharp pain. It is not cramping its nature. She denies any uterine cramping. She reports good movement. She denies any fever chills. She denies it radiating down her leg. She has a sister with a history of kidney stones. She is tender on the left flank. She does have some frequency of urination. We agreed to treat with antibiotics. There is trace blood in her urine. Flowsheet Date 09/17/2022 Loya Score Blood Edema Fundus Height Fundus Units Glucose Ketones Leukocytes Nitrite Labor Signs Protein Cervic Dilation Cervic Effacement Cervic Station neg none 26 none trace Type Weight in lbs Pre/Post Dialysis Refused Weight 202.378550881284 BP Diastolic BP Location Tested BP Systolic BP Type 70 104 Fetus Heart Rate Present A 147 Present Fetus Movement A Yes Comments patient had some lightheaded earlier in week x 1 and has had some discharge. reviewed precautions, encouraged hydration, small frequent meals, GCT and labs today with repeat thyroid, request urine culture, no sxs, but was having trouble a couple weeks ago Flowsheet Date 10/01/2022 Loya Score Blood Edema Fundus Height Fundus Units Glucose Ketones Leukocytes Nitrite Labor Signs Protein Cervic Dilation Cervic Effacement Cervic Station neg trace 28 none trace Type Weight in lbs Pre/Post Dialysis Refused Weight 205.804495476990 BP Diastolic BP Location Tested BP Systolic BP Type 69 104 Fetus Heart Rate Present A 152 Present Fetus Movement A Yes Comments patient is having some disch arge and swelling. GCT done already check tsh at next visit, precautions reviewed. ok for tdap Flowsheet Date 10/18/2022 Loya Score Blood Edema Fundus Height Fundus Units Glucose Ketones Leukocytes Nitrite Labor Signs Protein Cervic Dilation Cervic Effacement Cervic Station neg none none trace Type Weight in lbs Pre/Post Dialysis Refused Weight 207.983004241655 BP Diastolic BP Location Tested BP Systolic BP Type 62 L arm 96 sitting Fetus Heart Rate Present A 135 Fetus Movement A Yes Comments Doing well. Did have GI illn ess last week but has improved. Encouraged to schedule pre admit. Flowsheet Date 11/05/2022 Loya Score Blood Edema Fundus Height Fundus Units Glucose Ketones Leukocytes Nitrite Labor Signs Protein Cervic Dilation Cervic Effacement Cervic Station neg none 31 none trace Type Weight in lbs Pre/Post Dialysis Refused Weight 207.559594639338 BP Diastolic BP Location Tested BP Systolic BP Type 69 102 Fetus Heart Rate Present A 145 Present Fetus Movement A Yes Comments patient is having BH contrac tions and discharge. had some dizziness x 1 disc hydration, snacks with protein, worried about hypoglycemia, will add hga1c to thyroid labs, precautions reviewed f/u 2 weeks with growth remind to call for preadmit at next visit Flowsheet Date 11/17/2022 Loya Score Blood Edema Fundus Height Fundus Units Glucose Ketones Leukocytes Nitrite Labor Signs Protein Cervic Dilation Cervic Effacement Cervic Station Type Weight in lbs Pre/Post Dialysis Refused BP Diastolic BP Location Tested BP Systolic BP Type Fetus Heart Rate Present Fetus Movement Comments Flowsheet Date 11/17/2022 Loya Score Blood Edema Fundus Height Fundus Units Glucose Ketones Leukocytes Nitrite Labor Signs Protein Cervic Dilation Cervic Effacement Cervic Station neg trace none trace 1cm 40% -3 Type Weight in lbs Pre/Post Dialysis Refused Weight 205.780254792818 BP Diastolic BP Location Tested BP Systolic BP Type 68 102 Fetus Heart Rate Present Fetus Movement A Yes Comments patient states that having s ome contractions, pressure, discharge, swelling, nausea and vomiting. gbs done, planning on cord collection with via cord EFW84%, gbs done, labor precautions reviewed, recheck TSH today Flowsheet Date 11/24/2022 Loya Score Blood Edema Fundus Height Fundus Units Glucose Ketones Leukocytes Nitrite Labor Signs Protein Cervic Dilation Cervic Effacement Cervic Station neg none 37 none trace 1cm 50% -1 Type Weight in lbs Pre/Post Dialysis Refused Weight 205.065083605026 BP Diastolic BP Location Tested BP Systolic BP Type 66 96 Fetus Heart Rate Present A 140 Present Fetus Movement A Yes Comments patient states that having c ontractions and discharge. iol scheduled for 12/08/22 , +FM, precautions reviewed f/u one week Flowsheet Date 12/01/2022 Loya Score Blood Edema Fundus Height Fundus Units Glucose Ketones Leukocytes Nitrite Labor Signs Protein Cervic Dilation Cervic Effacement Cervic Station neg trace 38 none trace 2cm 70% -2 Type Weight in lbs Pre/Post Dialysis Refused Weight [id number] BP Diastolic BP Location Tested BP Systolic BP Type 66 100 Fetus Heart Rate Present A 130 Fetus Movement A Yes Comments patient is having some contr actions, discharge, and swelling. labor precautions reviewed, rest, hydrate f/u IOL on 12/08 Menstrual History Last Menstrual Date Menses Monthly On Bcp Conception Prior Menses Frequency Hcg Plus Date Menarche Onset Age 0603/09/2022 Genetic Screening And Infection History Question Response Note Mental Retardation/Autism false Patient's Age Will Be 35 Years Or Older At Estim ated Date of Delivery false Thalassemia (Belarusian, Armenian, Mediterranean, Or Background): MCV < 80 false Neural Tube Defect (Meningomyelocele, Spina Bifi da, Or Anencephaly) false Congenital Heart Defect false Down Syndrome false Hema-Sachs (eg, Scientologist, Cajun, Kenyan-Jackson) f alse Phuc Disease false Sickle Cell Disease Or Trait () false Hemophilia Or Other Blood Disorders false Muscular Dystrophy false Cystic Fibrosis false Appling's Chorea false Intellectual Disability/Autism false If Yes, Was Person Tested For Fragile X? false Other Inherited Genetic Or Chromosomal Disorder false Maternal Metabolic Disorder (eg, Type 1 Diabetes , PKU) false Patient Or Baby's Father Had A Child With Defects Not Listed Above false Recurrent Loss, Or A Stillbirth false Medications (including Suppl ements, Vitamins, Herbs, OTC Drugs), Illicit/Recreational Drugs, Alcohol false If Yes, Agent(s) And Strength/Dosage false Any Other Genetic History false Live With Someone With TB Or Exposed To TB false Patient Or Partner Has History Of Genital Herpes false Rash Or Viral Illness Since Last Menstrual Perio d false History Of STD, Gonorrhea, Chlamydia, HPV, Syphi lis false Other Infection History false History of HIV false History of Hepatitis false Prior GBS-infected child false Hemoglobinopathy Or Carrier false Other Structural Defect false Recent Travel History Outside of Country false Delivery Information Delivery Date Delivery Type Labor Anesthesia Weeks Gestation Incision Type Labor Labor Length Hrs Delivered By Post Complications Tubal Sterilization Discharge Date Comments 3 [facility] Jammie Hendricks CNM SR[facility], Anemia & GHTN Discharge Information Feeding Method Contraceptive Method Maternal HG B and HCT Levels Ob Episode Information Episode Created Date Number of Fetuses Patient Bloodtype Patient rh Status Prepregnancy Weight lbs Domestic Partner Domestic Partner Phone Father Name Radiosonde Operator Status 11/14/19 25 1 185 Ty Grapper ha OPEN Fetus Data First Name Last Name Admitted to NICU Weight (g) Sex Living Outcome Pediatric Complications Fetus ID Race Codes Race Delivery Type 13023 [place] Calculation Initial [place] Date Initial Exam Date Initial Exam Provider Initial Ultrasound Date Last Menstrual Period Date Ultra Sound Weeks Gestation 05/28/2025 10/17/2024 Jammie Silvestre 10/17/2024 08/21/2024 8 Eighteen To Twenty Week [place] Update Ultra Sound Date Fundal Height At Umbil Quickening Date Ultra Sound Latest Weeks Gestation Final [place] Confirmed By Final [facility] Confirmed Date Final [place] Date Ultra Sound Latest Days Gestation 0 05/28/20 25 0 Pre-charli Flowsheet Flowsheet Date 11/14/2024 Loya Score Blood Edema Fundus Height Fundus Units Glucose Ketones Leukocytes Nitrite Labor Signs Protein Cervic Dilation Cervic Effacement Cervic Station neg none none trace Type Weight in lbs Pre/Post Dialysis Refused Weight [id number] BP Diastolic BP Location Tested BP Systolic BP Type 65 97 Fetus Heart Rate Present Fetus Movement A No Comments reviewed records, ?SERAFIN, daisy l rec bASA at next visit, us today 2 subchorionic hemorrhages. may have been on thyroid medication, will check today with labs, anxiety and depression hx zoloft no current medication, will monitor. hx 2 vaginal deliveries, begin routine care Menstrual History Last Menstrual Date Menses Monthly On Bcp Conception Prior Menses Frequency Hcg Plus Date Menarche Onset Age 898/21/2024 Delivery Information Delivery Date Delivery Type Labor Anesthesia Weeks Gestation Incision Type Labor Labor Length Hrs Delivered By Post Complications Tubal Sterilization Discharge Date Comments Discharge Information Feeding Method Contraceptive Method Maternal HG B and HCT Levels
--- OUTSIDE RECORDS SUMMARY | 2024-11-24 03:52 | XMS_ITS | Continuity of Care Document ---
Author Name [facility] Organization [facility] Care Team Providers Care Parts Counter Clerk Name Role Phone [facility] Unavailable Unavailable Problems Combined list of problems from Department of Defense and Veterans Affairs facilities. It does not include entries that were removed or entered in error. Problem Status Onset Date Problem Type Date of Resolution Comme nts Source Stress fracture, unspecified tibia and fibula Active 05/18/2019 Condition DoD Vitamin D deficiency, unspecified Active 05/18/2019 Condition DoD Pain in left knee Active 05/16/2019 Condition D oD Strain of other specified muscles, fascia and tendons at thigh level, right thigh Active Condition DoD Medications Combined list of outpatient medications from Department of Defense and Veterans Affairs facilities.Medications provided include 1) outpatient medications from the last 15 months, and 2) patient-reported medications. Medication Details Route Status Patient Instructions Prescription Expires Prescription Number Last Dispense Date Ordering Provider Order Date Order Qty Source amoxicillin -clavulanat e 875 mg-125 mg oral tablet 0 total refill(s ) Ordered 2021 No Facilit y Access Cipro 500 mg oral tablet 1 tab(s), Oral, BID, # 6 tab(s), 0 total refill(s ), Acute, 12/03/24 12:00:00 AM PARLOR CHAPERONE, Pharmacy : [facility] Oral (given by mouth) Ordered 12/03/20242023 6.0 8224R-1 26 MDG diazePAM 10 mg auto injector 10 mg, IntraMus cular, As Directed , After using ATNAA Use only when directed to by command* *, UAD post exposure prophyla xis., # 1 EA, 0 total refill(s ), Acute, 12/05/24 12:00:00 AM PARLOR CHAPERONE, Pharmacy : [facility] IntraM uscula r (in a muscle ) Ordered 12/05/20242023 1.0 8224R-1 26 MDG DuoDote 2.1 mg/0.7 mL-600 mg/2 mL intramuscul ar solution 2.7 mL, IntraMus cular, As Directed , Use only when directed to by command* * UAD on autoinje ctor, # 3 EA, 0 total refill(s ), Acute, Pharmacy : [facility] IntraM uscula r (in a muscle ) Ordered 12/03/20242023 3.0 8224R-1 26 MDG levonorgest rel-ethinyl estradiol biphasic extended cycle oral tablet levonorg estrel-e thinyl estradio l biphasic extended cycle oral tablet Start Date: 10/23/21 Status: Ordered Repeat number: 1 Ordered 2021 No Facilit y Access levonorgest rel-ethinyl estradiol biphasic extended cycle oral tablet levonorg estrel-e thinyl estradio l biphasic extended cycle oral tablet Start Date: 10/25/20 Status: Ordered Repeat number: 1 Ordered 2021 No Facilit y Access levonorgest rel-ethinyl estradiol biphasic extended cycle oral tablet levonorg estrel-e thinyl estradio l biphasic extended cycle oral tablet Start Date: 01/14/21 Status: Ordered Repeat number: 1 Ordered 2021 No Facilit y Access NORETHINDRO N-ETHINYL ESTRADIOL (norethindr one acetate-eth inyl estradiol), 1MG-20MCG, TABLET, ORAL, [employer], 21 ea. BLIST PACK Active [id number] 2023 63 Pharmac y Data Transac tion Service Facilit y potassium iodide 130 mg oral tablet 1 tab(s), Oral, Daily, # 14 tab(s), 0 total refill(s ), Acute, Pharmacy : [facility] Oral (given by mouth) Ordered 12/03/20242023 14.0 8224R-1 26 MDG predniSONE 10 mg oral tablet predniSO NE 10 mg oral tablet Start Date: 07/15/21 Status: Ordered Repeat number: 1 Ordered 2021 No Facilit y Access pyRIDostigm ine 30 mg oral tablet 1 tab(s), Oral, every 8 hr, # 42 tab(s), 0 total refill(s ), Acute, Pharmacy : [facility] Oral (given by mouth) Ordered 12/03/20242023 42.0 8224R-1 26 MDG Reactive Skin Decontamina tion Lotion See Instruct ions, As Directed , # 3 packet(s ), 0 total refill(s ), Acute, Supply, Pharmacy : [facility] Ordered 12/03/20242023 3.0 8224R-1 26 MDG Allergies, Adverse Reactions, Alerts Combined list of allergies from Department of Defense and Veterans Affairs facilities. It does not include entries that were removed or entered in error. Substance Category Reaction Severity Reaction type Status Date Reported Comments Source No Known Allergies Drug allergy (disorder) active 04/26/2019 [facility] [place] [address] Immunizations Combined list of available immunizations from the Department of Defense and Veterans Affairs facilities. Immunization Series Date Given Administered By Site Reaction Lot Number CVX Code Drug Insulation Applicator Status Comments Source influenza, injectable, quadrivalent- pf 2021 [id number] 150 GlaxDejero Labs Inc.ithKli ne complet ed influenza , injectabl e, quadrival ent-pf 12/05/21 Given Ambulat ory Pharmac y Influenza, injectable, quadrivalent, preservative free 1 2021 [id number] 150 SmithScroll.inine (SKB) complet ed Influenza , injectabl e, quadrival ent, preservat mendy free DoD COVID Vaccine Moderna 2020 [id number] complet ed COVID Vaccine Moderna 01/14/21 Given Ambulat ory Pharmac y SARS-COV-2 (COVID-19) vaccine, mRNA, spike protein, LNP, preservative free, 100 mcg or 50 mcg dose 2 2020 [id number] 207 Moderna [employer] (MOD) complet ed SARS-COV- 2 (COVID-19 ) vaccine, mRNA, spike protein, LNP, preservat mendy free, 100 mcg or 50 mcg dose DoD COVID Vaccine Moderna 2020 Valerie odonnell Arm [id number] complet ed COVID Vaccine Moderna 12/17/20 Given Ambulat ory Pharmac y SARS-COV-2 (COVID-19) vaccine, mRNA, spike protein, LNP, preservative free, 100 mcg or 50 mcg dose 1 2020 CONNOR MAYA [id number] 207 Moderna US, [employer]. (MOD) complet ed SARS-COV- 2 (COVID-19 ) vaccine, mRNA, spike protein, LNP, preservat mendy free, 100 mcg or 50 mcg dose DoD influenza, injectable, quadrivalent- pf 2019 [id number] 150 Seqirus complet ed influenza , injectabl e, quadrival ent-pf 09/06/20 Given Ambulat ory Pharmac y Influenza, injectable, quadrivalent, preservative free 1 2019 [id number] 150 Seqirus (SEQ) complet ed Influenza , injectabl e, quadrival ent, preservat mendy free DoD hepatitis A adult vaccine 2019 [id number] 52 GlaxoSmithKli ne complet ed hepatitis A adult vaccine 06/14/20 Given Ambulat ory Pharmac y hepatitis A vaccine, adult dosage 2 2019 [id number] 52 SmithKline (SKB) complet ed hepatitis A vaccine, adult dosage DoD influenza, injectable, quadrivalent- pf 2018 [id number] 150 Seqirus complet ed influenza , injectabl e, quadrival ent-pf 08/18/19 Given Ambulat ory Pharmac y Influenza, injectable, quadrivalent, preservative free 1 2018 [id number] 594 150 Seqirus (SEQ) complet ed Influenza , injectabl e, quadrival ent, preservat mendy free DoD adenovirus vaccine, live 2018 [id number] 143 Teva Pharmaceutica ls complet ed adenoviru s vaccine, live 04/24/19 Given Ambulat ory Pharmac y hepatitis A adult vaccine 2018 [id number] 52 GlaxoSmithKli ne complet ed hepatitis A adult vaccine 04/24/19 Given Ambulat ory Pharmac y hepatitis A vaccine, adult dosage 1 2018 [id number] 52 Pic[employer] (SKB) complet ed hepatitis A vaccine, adult dosage DoD Adenovirus, type 4 and type 7, live, oral 1 2018 [id number] 143 [facility] (BRR) complet ed Adenoviru s, type 4 and type 7, live, oral DoD tetanus, diphtheria, acellular pertu is 2018 [id number] 115 GlaxoSmithKli ne complet ed tetanus, diphtheri a, acellular pertussis 04/19/19 Given Ambulat ory Pharmac y poliovirus vaccine, inactivated 2018 [id number] 10 sanofi pasteur complet ed polioviru s vaccine, inactivat ed 04/19/19 Given Ambulat ory Pharmac y meningococcal A,C,Y,W-135 (MCV4P) 2018 [id number] 114 sanofi pasteur complet ed meningoco ccal A,C,Y,W-1 35 (MCV4P) 04/19/19 Given Ambulat ory Pharmac y poliovirus vaccine, inactivated 1 2018 [id number] 10 Sanofi Pasteur (PMC) complet ed polioviru s vaccine, inactivat ed DoD meningococcal polysaccharid e (groups A, C, Y and W-135) diphtheria toxoid conjugate vaccine (MCV4P) 1 2018 [id number] 114 Sanofi Pasteur (PMC) complet ed meningoco ccal polysacch aride (groups A, C, Y and W-135) diphtheri a toxoid conjugate vaccine (MCV4P) DoD tetanus toxoid, reduced diphtheria toxoid, and acellular pertu is vaccine, adsorbed [address] [place] [address] Na[employer] Solutions[employer]i (SKB) complet ed tetanus toxoid, reduced diphtheri a toxoid, and acellular pertussis vaccine, adsorbed DoD measles virus vaccine 0 2018 05 () Not Given measles virus vaccine DoD rubella virus vaccine 0 2018 06 () Not Given rubella virus vaccine DoD mumps virus vaccine 0 2018 07 () Not Given mumps virus vaccine DoD varicella virus vaccine 0 2018 21 () Not Given varicella virus vaccine DoD hepatitis B vaccine, unspecified formulation 0 2018 45 () Not Given hepatitis B vaccine, unspecifi ed formulati on DoD Results Combined list of recent chemistry, hematology and other laboratory results from Department of Defense and Veterans Affairs, ranging from 15 months to all on record, depending upon the facility. Order Name Results Value Reference Range Date Interpretation Specimen Comments Source Miscellan eous Sendouts Repository Sample Received ( 4 7:51 AM) 07/30 N 5600A-U [facility] Infectiou s Disease HIV-1/O/2 Non-Reac tive 1 (01/04/24 7:57 AM) 01/03 N Interpretiv e Data: INTERPRETAT ION: This method is a screening procedure for the detection of HIV p24 Antigen and Antibodies to HIV-1, including Group O, and/or HIV-2. NON-REACTIV E: HIV-1 antigen and HIV-1 / HIV-2 antibodies were not detected. No laboratory evidence of HIV infection. A negative test result does not exclude the possibility of exposure to or infection with HIV. HIV antibodies and/or p24 antigen may be undetectabl e in some stages of the infection and in some clinical conditions. If acute HIV infection is suspected, consider submitting another specimen to a reference laboratory for HIV-1 RNA. SCREEN REACTIVE - CONFIRMATIO N TO FOLLOW: Possible presence of HIV-1antibo dies, HIV-2 antibodies and/or HIV-1 p24 antigen. Specimen will reflex to the confirmatio n testing that fulfills the Center for Disease Control and Prevention' s HIV diagnostic algorithm. Refer to [facility] Lab Guide for additional information : https://[employer]. [facility]/ kj/kx5/EPIL ab/Pages/la b_guide.asp x Testing performed by [employer]cen ce. 5600A-U [facility] Miscellan eous Sendouts Repository Sample Received (01/04/24 7:57 AM) 01/03 N 5600A-U [facility] Chemistry Beta hCG, Urine Qual Negative (01/04/24 7:57 AM) 01/03 N 0055A-[address] [place] [address]- [facility] Miscellan eous Sendouts Repository Sample Received (12/03/23 10:21 AM) 12/02 N 5600A-U [facility] Infectiou s Disease HIV-1/O/2 Non-Reac tive 2 (12/03/23 10:21 AM) 12/02 N Interpretiv e Data: INTERPRETAT ION: This method is a screening procedure for the detection of HIV p24 Antigen and Antibodies to HIV-1, including Group O, and/or HIV-2. NON-REACTIV E: HIV-1 antigen and HIV-1 / HIV-2 antibodies were not detected. No laboratory evidence of HIV infection. A negative test result does not exclude the possibility of exposure to or infection with HIV. HIV antibodies and/or p24 antigen may be undetectabl e in some stages of the infection and in some clinical conditions. If acute HIV infection is suspected, consider submitting another specimen to a reference laboratory for HIV-1 RNA. SCREEN REACTIVE - CONFIRMATIO N TO FOLLOW: Possible presence of HIV-1antibo dies, HIV-2 antibodies and/or HIV-1 p24 antigen. Specimen will reflex to the confirmatio n testing that fulfills the Center for Disease Control and Prevention' s HIV diagnostic algorithm. Refer to [facility] Lab Guide for additional information : https://[facility]/ kj/kx5/EPIL ab/Pages/la b_guide.asp x Testing performed by [employer] ilMIOTtechn ce. 5600A-U [facility] [facility] Infectiou s Disease HIV-1/O/2 Non-Reac tive 3 (09/03/23 8:37 AM) 09/03 N Interpretiv e Data: INTERPRETAT ION: This method is a screening procedure for the detection of HIV p24 Antigen and Antibodies to HIV-1, including Group O, and/or HIV-2. NON-REACTIV E: HIV-1 antigen and HIV-1 / HIV-2 antibodies were not detected. No laboratory evidence of HIV infection. A negative test result does not exclude the possibility of exposure to or infection with HIV. HIV antibodies and/or p24 antigen may be undetectabl e in some stages of the infection and in some clinical conditions. If acute HIV infection is suspected, consider submitting another specimen to a reference laboratory for HIV-1 RNA. SCREEN REACTIVE - CONFIRMATIO N TO FOLLOW: Possible presence of HIV-1antibo dies, HIV-2 antibodies and/or HIV-1 p24 antigen. Specimen will reflex to the confirmatio n testing that fulfills the Center for Disease Control and Prevention' s HIV diagnostic algorithm. Refer to [facility] Lab Guide for additional information : https://[facility]/ kj/kx5/EPIL ab/Pages/la b_guide.asp x Testing performed by [employer] iluminDajiecen ce. 5600A-U [employer] Miscellan eous Sendouts Repository Sample Received (09/03/23 8:37 AM) 09/03 N 5600A-U [facility] Encounters Combined list of: 1) Encounters from Department of Veterans Affairs facilities going backup to the last 18 months, not all VA inpatient encounters are included; 2) Encounters from the Department of Defense facilities going backup to 280 months. Location Location Details Encounter Type Encounter Number Reason For Visit Attending Provider ADM Date DC Date Status Disposition Source [facility] [place] [address]([facility] ring Conserv[facility] ion, BMT) OUTPATIENT [id number] CAM WAGNER Osman 04/23 Released w/o Limitations [facility] [place] [address](H earing Conserv ation, BMT) [facility] [place] [address]([facility]) OUTPATIENT [id number] Notes Entered by: Marisol BANSAL 26 Apr 2019 0727 ------- ------- ------- ------- -- Skin Eruptri ons=[place] r MARILY PAYAN 04/26 Released w/o Limitations [facility] [place] [address] [place] [address]([facility]) OUTPATIENT [id number] Notes Entered by: Marisol BANSAL 30 Apr 2019 0717 ------- ------- ------- ------- -- F/U-*Ra sh* [Prior Dr. Dupree ak] MARILY PAYAN 04/30 Released w/o Limitations [facility] [place] [address] [place] [address](ATR 331 TRS,BMT) OUTPATIENT [id number] Notes Entered by: ST ELHAM BLANCHARD N 03 May 2019 1347 ------- ------- ------- ------- -- new left knee pain KAILASH BLANCHARD 05/03 Released with Work/Duty Limitations [facility] [place] [address](A TR 331 TRS,BMT ) [facility] [place] [address]([facility] Medicine [facility] [place]) OUTPATIENT [id number] Notes Entered by: DOMINICK FERNANDEZ 04 May 2019 1500 ------- ------- ------- ------- -- Knee pain MARIA D CANALES V 05/04 Released with Work/Duty Limitations [facility] [place] [address]([facility] [place]) [facility] [place] [address](ATR 331 TRS,BMT) OUTPATIENT [id number] Notes Entered by: ST ELHAM BLANCHARD N 07 May 2019 1357 ------- ------- ------- ------- -- f/u left knee pain KAILASH BLANCHARD 05/07 Released with Work/Duty Limitations [facility] [place] [address](A TR 331 TRS,BMT ) [facility] [place] [address](ATR 331 TRS,BMT) OUTPATIENT [id number] Notes Entered by: ST ELHAM BLANCHARD 16 May 2019 1441 ------- ------- ------- ------- -- f/u left knee pain KAILASH BLANCHARD N 05/16 Released with Work/Duty Limitations [facility] [place] [address](A TR 331 TRS,BMT ) [facility] [place] [address]([facility] Medicine [facility] [place]) OUTPATIENT [id number] Notes Entered by: EMY SCHULER 18 May 2019 1040 ------- ------- ------- ------- -- L knee MARIA D CANALES V 05/18 Released with Work/Duty Limitations [facility] [place] [address]( ports Medicin e [facility] [place]) [facility]) OUTPATIENT [id number] Notes Entered by: LORENA VELAZQUEZ 10 Jul 2019 0630 ------- ------- ------- ------- -- SICK CALL- pulled muscle in R leg 366 LIVE MCRAE 07/10 Released with Work/Duty Limitations [employer] [facility] [employer](Phy sical Therapy) OUTPATIENT [id number] Strain of unspeci fied muscles , fascia and tendons at thigh level, right CHRISTINA Quiñones Akash 07/31 Released w/o Limitations [employer](P hysical Therapy ) [employer](Phy sical Therapy TMAS) OUTPATIENT [id number] ELIJAH HAQUE 08/01 Released w/o Limitations [employer](P hysical Therapy TMAS) [employer](Phy sical Therapy TMAS) OUTPATIENT [id number] DONALD KING 08/03 Released w/o Limitations [employer](P hysical Therapy TMAS) [employer](Phy sical Therapy TMAS) OUTPATIENT [id number] ELIJAH HAQUE 08/08 Released w/o Limitations [employer](P hysical Therapy TMAS) [employer](Phy sical Therapy TMAS) OUTPATIENT [id number] ELIJAH HAQUE 08/14 Released w/o Limitations [employer](P hysical Therapy TMAS) [employer](Phy sical Therapy TMAS) OUTPATIENT [id number] ELIJAH HAQUE 08/16 Released w/o Limitations [employer](P hysical Therapy TMAS) [employer](Phy sical Therapy TMAS) OUTPATIENT [id number] COMFORT ORTIZ 08/21 Released w/o Limitations [employer](P hysical Therapy TMAS) [employer](Phy sical Therapy TMAS) OUTPATIENT [id number] ELIJAH HAQUE 08/24 Released w/o Limitations [employer](P hysical Therapy TMAS) [employer](Phy sical Therapy) OUTPATIENT [id number] LEFCHRISTINA MCCOY 09/04 Released w/o Limitations [employer](P hysical Therapy ) [facility]) TELE CONSULT [id number] Notes Entered by: EMETERIO SHAH 18 Jan 2020 1310 ------- ------- ------- ------- -- Medical Review EMETERIO MORALES 01/17 Released to Self Care [facility]) [facility] Virus) OUTPATIENT [id number] POS/ASY MPTOMAT IAC MAX GANN 04/15 Released w/o Limitations [employer] [facility])(P andemic Virus) [address] [place] [address])([facility]) OUTPATIENT [id number] Initial PHA JUSTEN ROWLAND 07/05 Released w/o Limitations [employer] [facility])(10 28 [facility]) [address] [place] [address])([facility]) OUTPATIENT [id number] Initial Eye Exam MED AYERS 07/05 Released w/o Limitations [facility])(10 28 [facility]) [address] [place] [address])([facility]) OUTPATIENT [id number] Notes Entered by: Lincoln BEDOLLA 11 Feb 2021 1408 ------- ------- ------- ------- -- lawson3 RICA BEDOLLA 02/11 Released w/o Limitations [facility])(10 28 [facility]) [facility]) OUTPATIENT [id number] Notes Entered by: EMETERIO SHAH 04 Jul 2021 0810 ------- ------- ------- ------- -- Fitness Exempti BRANDY Wright 07/04 Released w/o Limitations [address] [place] [address])(10 [facility]) [address] [place] [address])([facility]) TELE CONSULT [id number] Notes Entered by: EMETERIO SHAH 19 Aug 2021 1056 ------- ------- ------- ------- -- Follow Up - EMETERIO Valdivia 08/19 Other Not Elsewhere Classified [address] [place] [address])(10 28 [facility]) [address] [place] [address])([facility]) OUTPATIENT [id number] Notes Entered by: Lincoln BEDOLLA 07 Oct 2021 1132 ------- ------- ------- ------- -- RICA Hassan 10/07 Released w/o Limitations [address] [place] [address])(10 28 [facility]) [address] [place] [address])([facility]) TELE CONSULT [id number] Notes Entered by: EMETERIO SHAH 18 Nov 2021 1239 ------- ------- ------- ------- -- EMETERIO June 11/18 Other Not Elsewhere Classified [address] [place] [address])(10 28 [facility]) [address] [place] [address])([facility]) OUTPATIENT [id number] Notes Entered by: EMETERIO SHAH 02 Jan 2022 0921 ------- ------- ------- ------- -- TODD Villavicencio 01/02 Released w/o Limitations [address] [place] [address] ([facility]10 28 [facility]) [address] [place] [address])([facility]) TELE CONSULT [id number] Notes Entered by: EMETERIO SHAH 12 Feb 2022 1142 ------- ------- ------- ------- -- Alexa rodriguez January 2022 EMETERIO MORALES 02/12 Other Not Elsewhere Classified [address] [place] [address])(1 [facility]) [address] [place] [address])([facility]) OUTPATIENT [id number] Notes Entered by: EMMA JOSEPH 13 Jun 2022 1238 ------- ------- ------- ------- -- PROTECT ION WORKPLA CE INTERVI EW ADEOLA MANZANO 06/13 Released w/o Limitations [address] [place] [address])(1 [facility]) [address] [place] [address])(126 [facility]) OUTPATIENT [id number] PRIORIT Y JUSTEN BAR 09/04 Released with Work/Duty Limitations [address] [place] [address])(1 [facility] Care [facility]) 0055A-375 [facility] [id number] RICA DELGADO 01/03 Discharge Disposition: Home or Self Care 0055A-3 [facility] 8224R-126 [facility] [place] [id number] RICA DELGADO 07/02 Discharge Disposition: Home or Self Care 8224R-1 26 JORADN 0055A-375 [facility] Outpatient [id number] RICA DELGADO 07/30 Discharge Disposition: Home or Self Care 0055A-3 [facility] [facility] 8224R-126 [facility] [place] [id number] RICA DELGADO 11/03 Discharge Disposition: Home or Self Care 8224R-1 26 8224R-126 [facility] [place] [id number] RICA DELGADO 11/05 Discharge Disposition: Home or Self Care 8224R-1 26 MDG Procedures Combined list of: 1) Procedures from Department of Veterans Affairs facilities going back up to thelast 18 months, not all [place] non-surgical procedures are included; 2) All procedures from the Department of Defense facilities. Procedure Procedure Type Code Date Perfomer Comments Sourc e No data available for this section Ambulato ry Pharmacy RE-EVAL,ATHLETIC TRAINING ESTAB PLAN OF CARE REQ:ASSES,CUR FUNC STAT WHEN DOC CHANGE;REV PLAN OF CARE,STAND,ASSESS INSTR &/SINDHU ASSESS,FUNC OUTCOME W UPDATE,20 MIN [id number] W THE PATIENT &/FAMILY 05/16/20 19 DoD RE-EVAL,ATHLETIC TRAINING ESTAB PLAN OF CARE REQ:ASSES,CUR FUNC STAT WHEN DOC CHANGE;REV PLAN OF CARE,STAND,ASSESS INSTR &/SINDHU ASSESS,FUNC OUTCOME W UPDATE,20 MIN [id number] W THE PATIENT &/FAMILY 05/07/20 19 DoD SELF-CARE/HOME MANAGMENT TRAIN (EG,ACT OF DAILY LIVING (ADL) &COMPENSAT TRAIN,MEAL PREPARATION,SAFETY PROCS,AND INSTRUCT IN USE OF ASST TECHNOLOGY DEV/ADPT EQUIP) DIR ONE-ON-ONE CONT,EA 15 MINUTES 05/04/20 19 DoD CRUTCHES UNDERARM, OTHER THAN WOOD, ADJUSTABLE OR FIXED, PAIR, WITH PADS, TIPS AND HANDGRIPS 05/03/20 19 DoD PURE TONE AUDIOMETRY (THRESHOLD); AIR ONLY 04/23/20 19 [facility] RE-EVAL,PHYSICAL THERAPY EST PLAN OF CARE,REQ:EXAM,REV, HX & USE,STAND TESTS &SINDHU REQ;REV PLAN OF CARE USING STAND PAT ASSESS INSTR &/SINDHU ASSESS FUNC OUTCOME TYP,20 MIN SPENT [id number] W PAT&/FAM 09/04/20 19 DoD THERAPEUTIC PROCEDURE,1 OR MORE AREAS,EACH 15 MINUTES;NEUROMUSCU LAR REEDUCATION OF MOVEMENT,BALANCE,C OORDINATION,KINEST HETIC SENSE,POSTURE,AND/ OR PROPRIOCEPTION FOR SITTING AND/OR STANDING ACTIVITIES 08/24/20 19 DoD THERAPEUTIC PROCEDURE,1 OR MORE AREAS,EACH 15 MINUTES;NEUROMUSCU LAR REEDUCATION OF MOVEMENT,BALANCE,C OORDINATION,KINEST HETIC SENSE,POSTURE,AND/ OR PROPRIOCEPTION FOR SITTING AND/OR STANDING ACTIVITIES 08/21/20 19 DoD THERAPEUTIC PROCEDURE,1 OR MORE AREAS,EACH 15 MINUTES;NEUROMUSCU LAR REEDUCATION OF MOVEMENT,BALANCE,C OORDINATION,KINEST HETIC SENSE,POSTURE,AND/ OR PROPRIOCEPTION FOR SITTING AND/OR STANDING ACTIVITIES 08/16/20 19 [facility] THERAPEUTIC PROCEDURE,1 OR MORE AREAS,EACH 15 MINUTES;NEUROMUSCU LAR REEDUCATION OF MOVEMENT,BALANCE,C OORDINATION,KINEST HETIC SENSE,POSTURE,AND/ OR PROPRIOCEPTION FOR SITTING AND/OR STANDING ACTIVITIES 08/14/20 19 [facility] THERAPEUTIC PROCEDURE,1 OR MORE AREAS,EACH 15 MINUTES;NEUROMUSCU LAR REEDUCATION OF MOVEMENT,BALANCE,C OORDINATION,KINEST HETIC SENSE,POSTURE,AND/ OR PROPRIOCEPTION FOR SITTING AND/OR STANDING ACTIVITIES 08/08/20 19 [facility] APPLICATION OF A MODALITY TO 1 OR MORE AREAS; HOT OR COLD PACKS 08/03/20 19 [facility] APPLICATION OF A MODALITY TO 1 OR MORE AREAS; HOT OR COLD PACKS 08/01/20 19 [facility] THERAPEUTIC PROCEDURE, 1 OR MORE AREAS, EACH 15 MINUTES; THERAPEUTIC EXERCISES TO DEVELOP STRENGTH AND ENDURANCE, RANGE OF MOTION AND FLEXIBILITY 07/31/20 19 [facility] Patient Training And Self-Care Skills Each 15 Minutes Patient Training And Self-Care Skills Each 15 Minutes [id number] 05/23/20 19 MARIA D CANALES V [facility] Athletic Training Re-evaluation Athletic Training Re-evaluation [id number] 05/17/20 19 KAILASH BLANCHARD Athletic Training Re-evaluation Athletic Training Re-evaluation [id number] 05/07/20 19 KAILASH BLANCHARD Crutches, underarm, other than wood, adjustable or fixed, pair, with pads, tips and handgrips 05/03/20 19 KAILASH BLANCHARD Athletic Training Evaluation Low Complexity Athletic Training Evaluation Low Complexity [id number] 05/03/20 19 KAILASH BLANCHARD Threshold Audiogram (Pure Tone) Threshold Audiogram (Pure Tone) [id number] 04/23/20 19 CAM WAGNER [facility] Physical Therapy Service Evaluation Moderate Complexity Physical Therapy Service Evaluation Moderate Complexity [id number] CHRISTINA RAY isted Exercises For ROM Assisted Exercises For ROM 22170 CHRISTINA RAY Physical Therapy: ___ Se ion Segments, 15 Minutes Each Physical Therapy: ___ Session Segments, 15 Minutes Each [id number] ELIJAH HAQUE Physical Therapy Neuromuscular Re-education Physical Therapy Neuromuscular Re-education [id number] ELIJAH HAQUE Modalities Cryotherapy Cold Packs Modalities Cryotherapy Cold Packs [id number] ELIJAH HAQUE [facility] Physical Therapy Service Re-Evaluation Physical Therapy Service Re-Evaluation [id number] CHRISTINA RAY [facility] Social History Combined list of available smoking, tobacco, and other social history from Department of Defense and Veterans Affairs facilities. Social History Type Response Date Comment Sourc e Sex Representation Female 01/08/2022 Unknow n Organization Sexual Orientation Amb[facility] tory Pharmacy Gender identity Ambulator y Pharmacy This section is an empty soc ial history section. DoD Assessment and Plan Combined list of future care activities from Department of Defense and Veterans Affairs facilities (e.g., assessment and plan notes, appointments, orders, and referrals). Additional future care activities may be listed in the Plan of Care section. Result Assessment and Plan Date Source Assessment and Plan Extracted from:Title : Follow up for Left Shoulder Injury Author: Glendy Carbajal Date: 11/05/24 Spoke with member today. She canceled her appt with the [address] [place] [address] for her post deployment shoulder injury. She stated she canceled her appt because her kids are home sick, but she stated her symptoms are much better and doesn't feel like she wants to pursue a LOD for this injury. Member advised she can [facility] with [facility] 5 [facility] if needed for this injury following this deployment. Will change to ADMIN LOD. 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 Patient s PHAQ responses suggest Routine i tems requiring action. Retention Waiver: N o Profile: Y es Member is on Profile until 06/19/2025 Medications: Medication List Active Medications Prescribed atropine-pralidoxime: 2.7 mL, IntraMuscular, As Directed, Use only when directed to by command UAD on autoinjector, 3 EA, 0 Refill(s). ciprofloxacin: 1 tab(s), Oral, BID, 6 tab(s), 0 Refill(s). diazePAM: 10 mg, IntraMuscular, As Directed, After using ATNAA Use only when directed to by command, UAD post exposure prophylaxis., 1 EA, 0 Refill(s). potassium iodide: 1 tab(s), Oral, Daily, 14 tab(s), 0 Refill(s). pyRIDostigmine: 1 tab(s), Oral, every 8 hr, 42 tab(s), 0 Refill(s). Reactive Skin Decontamination Lotion: See Instructions, As Directed, 3 packet(s), 0 Refill(s). Documented amoxicillin-clavulanate: 0 Refill(s). levonorgestrel-ethinyl estradiol: . levonorgestrel-ethinyl estradiol: . levonorgestrel-ethinyl estradiol: . levonorgestrel-ethinyl estradiol: . levonorgestrel-ethinyl estradiol: . predniSONE: . Medications Inactivated in the Last 72 Hours No medications found. 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 Y VA Disability Rating: N o If, Yes please update below. 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 Member is due to complete her MHA. Member recently returned from deployment to [facility]. Member on profile until 06/19/2025. Member wished to enroll in the Burn Pit Registry. Will explain the Registry is an opt out option now. Member does not report any allergies and does not wear any corrective lenses. Member reports good health with no c/o pain. Member [facility] for her shoulder injury while deployed, but the appt was canceled. Member stated her kids were sick and had to cancel the appt. Member stated her shoulder is much better now and she doesn't plan to schedule another appt with them. Member stated she does not need a LOD at this time. No other concerns voiced. PHAQ ready for PCM review and signature. Extracted from:Title: DHA3 Author: RIOS JOHN, EMT Date: 11/03/24 Patient is here to complete her DHA3. Addendum by CHRISTINA RUSSO on November 03, 2024 14:03 PARLOR CHAPERONE Member returned from deployment to [facility]. Was doing some lifting of heavy materials and reports sore left shoulder. Will be seeing [facility] in a few days. Member reports symptoms getting better. No limiting conditions from recent deployment at this time. POST DEPLOYMENT HEALTH RE-ASSESSMENT ([id number] SEP 2023) Last Name: IVANA First Name: BERT [place] ID: [id number] Date of : Gender: Female Service Branch: [employer]: [employer] Pay Grade: E5 --- Date departed theater: Country: [place] --- Summary of provider's identified concerns needing referral: Recommended referral(s): None. Referral Time Comments: --- Provider's Name: CHRISTINA RUSSO [facility] Date: --- 1. Address concerns identified on deployer questions 1 and 2. Self health rating: N/A Deployer's response: N/A Provider's comments: Change in health post-deployment: N/A Deployer's response: N/A Provider's comments: 2. Address wounds, injuries, assaults, etc., occurring during deployment as reported on deployer question 3. Deployer did not indicate concern. 3. Deployment experiences as reported in deployer question 4. Consider in overall assessment; ask follow-up questions as indicated. Danger of being killed: N/A Provider's comments: Encountered bodies or saw people killed or wounded: N/A Provider's comments: In direct combat and discharged weapon: N/A Provider's comments: 4. Address concerns identified on deployer questions 5 through 7. Health care visits since return: Deployer indicated concern or yes Deployer's response: shoulder (left) sore but improving. Provider's comments: nothing to add. To see [facility] 05 NOV 2024 on this. Hospitalized since return: N/A Deployer's response: Provider's comments: Physical limitations/problems: N/A Deployer's response: Provider's comments: No duty limitations. 5. Post-deployment general symptoms/health concerns. List of symptoms reported as Bothered a Lot on Deployer Questions 8a. through 8ee.: None List of symptoms reported as Bothered a Little on Deployer Questions 8a. through 8ee.: Back pain,Pain in the arms, legs, or joints (knees, hips, etc.),Noises in your head or ears (such as ringing, buzzing, crickets, humming, tone, etc.),Becoming easily annoyed or irritable Physical symptom (PHQ-15) severity score for Deployer Questions 8a. through 8ee.: Minimal a. Deployer does not have evidence of high generalized post-deployment physical symptoms. 6. Deployer marked that they did not have a concern or a difficulty with a major life stressor. 7. Address concerns identified on deployer questions 10 and 11. History of mental health care: N/A Deployer's response: Provider's comments: Medications: N/A Deployer's response: Provider's comments: 8. Deployer's AUDIT-C screening score was 0. (nothing required) 9. Deployer did not christina yes on three or more of questions 13a through 13e. 10. Deployer did not christina 'More than half the days' or 'Nearly every day' on question 14a or 14b. 11. Deployer did not indicate a worry or concern about a possible environmental/work exposure. 12. Deployer indicated they were NOT bitten or scratched during this deployment. 13.a. Deployer has not wished they were or wished they could go to sleep and not wake up. 13.b. Deployer has not actually had thoughts of killing themself. 13.f.1. Deployer has not ever done anything, started to do anything, or prepared to do anything to end their life. 13.g. Further risk assessment: 13.h. Deployer does not pose a current risk for harm to self. 14. Deployer states that they have not had thoughts or concerns over the past month that they might hurt or lose control with someone. 19. Address requests as reported on deployer questions 18 through 21: Request medical appointment: Yes 20. Supplemental services recommended/information provided: No Supplemental Services Required --- 1. Good : Overall how would you rate your health during the PAST MONTH? 2. About the same as before I deployed : Compared to before your most recent deployment, how would you rate your health in general now? 3. Yes : Were you wounded, injured, assaulted or otherwise hurt during your deployment? No : If yes, are you still having problems or concerns related to the event(s)? 4. During your deployment: 4. a. No : Did you ever feel like you were in great danger of being killed? 4. b. No : Did you encounter bodies or see people killed or wounded during this deployment? 4. c. No : Did you engage in direct combat where you discharged a weapon? 5. No visits : Since you returned from deployment, how many times have you gone to a health care provider for a medical, dental, or mental health problem/concern? 6. No : Since you returned from deployment, have you been hospitalized? 7. Not difficult at all : During the PAST MONTH, how difficult have physical health problems (illness or injury) made it for you to do your work or other regular daily activities? 8. During the PAST MONTH, how much have you been bothered by any of the following problems? (See health care provider item #5 above) 9. a. None : Over the PAST MONTH, what major life stressors have you experienced that are a cause of significant concern or make it difficult for you to do your work, take care of things at home, or get along with other people? 10. No : In the PAST YEAR did you receive care for any mental health condition or concern such as, but not limited to post traumatic stress disorder (PTSD), depression, anxiety disorder, alcohol abuse or substance abuse? 11. None : What prescription or over-the counter medications (including herbals/supplements) for sleep, pain, combat stress, or a mental health problem are you CURRENTLY taking? 12. a. Never : How often do you have a drink containing alcohol? 13. Have you ever had any experience that was so frightening, horrible, or upsetting that in the PAST MONTH, you: 13. a. No : Have had nightmares about it or thought about it when you did not want to? 13. b. No : Tried hard not to think about it or went out of your way to avoid situations that remind you of it? 13. c. No : Were constantly on guard, watchful or easily startled? 13. d. No : Lyons numb or detached from others, activities, or your surroundings 13. e. No : Lyons guilt or unable to stop blaming yourself or others for the event(s) or any problems the event(s) may have caused? 14. Over the LAST 2 WEEKS, how often have you been bothered by the following problems? 14. a. Not at all : Little interest or pleasure in doing things 14. b. Not at all : Feeling down, depressed, or hopeless 15. No : Are you worried about your health because you believe you were exposed to something in the environment while deployed? 16.a. Yes : During this deployment were you based or stationed at a location where an open burn pit was used? 16.b. Yes : During this deployment were you exposed to toxic airborne chemicals or other air-borne contaminants? 16.c. No : For Service members, are you enrolled in the Airborne Hazards and Open Burn Pit Registry? 16.d. Wish to enroll : For Service members, federal law requires eligible members to enroll in the Airborne hazards and Open Burn Pit Registry or opt-out. If eligible, choose one: 17. No : Were you bitten or scratched by an animal during your deployment? 18. No : Would you like to schedule an appointment with a health care provider to discuss any health concern(s)? 19. No : Are you interested in receiving information or assistance for a stress, emotional or alcohol concern? 20. No : Are you interested in receiving assistance for a family or relationship concern? 21. No : Would you like to schedule a visit with a pediatrician, mental health care provider, or a community support counselor? Extracted from:Title: Deployment Meds Author: Glendy Roldan Date: 12/05/23 Member completed her DHA1 during December and requires BW/CW meds. G6PD: Normal Addendum by RICA BEDOLLA on December 05, 2023 13:36 [facility] CH[facility] predeployment orders for BW/CW If G6PD deficient we are substituting doxy for cipro ALLERGIES: No Known Allergies BW/CW ordered for pharmacy o Three Antidote Treatment Nerve Agent Auto-injectors (ATNAA); o One Diazepam (KATHLEEN) Auto-injector; o Six Ciprofloxacin 500mg tablets - or S ix Doxycycline 100mg tablets; o Forty-two Pyridostigmine Ashley (HUMBERTO) tablets; o Fourteen Potassium Iodide 130mg tablets; o One Reactive Skin Decontamination Lotion (RSDL) pouch. Extracted from:Title: DRHA1 appointment Author: PORTIA MCFARLANE Date: 12/03/23 Member here for DRHA1 appointment. Addendum by LINDA AMOS on December 03, 2023 10:51 PARLOR CHAPERONE PRE-DEPLOYMENT HEALTH ASSESSMENT ([id number] JUL 2015) Last Name: IVANA First Name: BERT Social Security Number: [id number] Date of : Gender: Female Service Branch: [employer]: [employer] Pay Grade: E4 --- Estimated date of upcoming deployment: Country: [place] Number of previous deployments: 0 --- Medical assessment/disposition: Deployable Medical assessment/disposition comments: --- Summary of provider's identified concerns needing referral: None identified --- Provider's Name: MAJ Hein ANG, PA Date: --- 1. Address concerns identified on deployer questions 1 through 8. Self health rating: N/A Deployer's response: N/A Provider's comments: MEB or PEB: Deployer's response: N/A Provider's comments: Medical, dental or mental health concern: N/A Deployer's response: N/A Provider's comments: : N/A Deployer's response: N/A Provider's comments: Head Injury: N/A Deployer's response: N/A Provider's comments: Medications: N/A Deployer's response: N/A Provider's comments: History of mental health care: N/A Deployer's response: N/A Provider's comments: 2. Member marked that they were not bothered by noises in head or ears or trouble hearing. 3. Deployer's AUDIT-C screening score was 0. (nothing required) 4. Deployer did not christina yes on two or more of questions 11a through 11d. 5. Deployer did not christina More than half the days or nearly every day on question 12a or 12b. 6. Deployer marked that they did not have a concern or a difficulty with a major life stressor. 7. Deployer has not been bothered by thoughts that they would be better off or of hurting themself in some way. 8. Deployer states that they have not had thoughts or concerns over the past month that they might hurt or lose control with someone. 9. Medical history review completed. a. Significant findings related to ability to deploy: b. There is no evidence of deployment limiting conditions or medications. 16. Supplemental services recommended/information provided: --- 1. Overall how would you rate your health during the PAST MONTH? : Very Good 2. Are you CURRENTLY on a profile, limited duty, waiting on a MOS/Medical Retention Board (MMRB) decision, or being referred to a medical evaluation board (MEB) or physical evaluation board (PEB)? : No 3. How often do you smoke tobacco (for example cigarettes, cigars, pipe or hookah)? : Not at all 4. What problems, questions or concerns do you have about your medical, dental, or mental health? : No 5. FEMALES ONLY - Are you or is there a chance you could be ? : No 6. In the PAST YEAR did you receive care for a head injury? : No 7. What prescription or over-the counter medications (including herbals/supplements) for sleep, pain, combat stress, or mental health conditions or concerns are you CURRENTLY taking? : None 8. During the PAST MONTH, how much have you been bothered by any of the following problems? : No 9. During the PAST MONTH, how much have you been bothered by any of the following problems? 9. a. Noises in your head or ears (such as ringing, buzzing, crickets, humming, tone, etc.) Not bothered at all 9. b. Trouble hearing Not bothered at all 10. a. How often do you have a drink containing alcohol? Never 11. Have you ever had any experience that was so frightening, horrible, or upsetting that in the PAST MONTH, you: 11. a. Have had nightmares about it or thought about it when you did not want to? No 11. b. Tried hard not to think about it or went out of your way to avoid situations that remind you of it? No 11. c. Were constantly on guard, watchful or easily startled? No 11. d. Lyons numb or detached from others, activities, or your surroundings No 12. Over the LAST 2 WEEKS, how often have you been bothered by the following problems? 12. a. Little interest or pleasure in doing things Not at all 12. b. Feeling down, depressed, or hopeless Not at all 13. a. Over the PAST MONTH, what major life stressors have you experienced that are a cause of significant concern or make it difficult for you to do your work, take care of things at home, or get along with other people (for example, serious conflicts with others, relationship problems, or a legal, disciplinary or financial problem)? 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 Patient s PHAQ responses suggest there WERE NO Priority items requiring immediate action. Retention Waiver: No Profile: No Medications: Medication List Active Medications Documented amoxicillin-clavulanate: 0 Refill(s). levonorgestrel-ethinyl estradiol: . levonorgestrel-ethinyl estradiol: . levonorgestrel-ethinyl estradiol: . levonorgestrel-ethinyl estradiol: . levonorgestrel-ethinyl estradiol: . predniSONE: . Medications Inactivated in the Last 72 Hours No medications found. 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 YES VA Disability Rating: No If yes please update below. 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 Member has nothing more to report. PHAQ ready for PCM review and signature. 11/24/2024 [id number] [facility] [place] Combined list of recent functional and cognitive assessments recorded at Department of Defense and Veterans Affairs (VA).VA Functional Lott Measurement (FIM) Scale: 1 = Total Assistance (Subject = 0% +), 2 = Maximal Assistance (Subject = 25% +), 3 = Moderate Assistance (Subject = 50% +), 4 = Minimal Assistance (Subject = 75% +), 5 = Supervision, 6 = Modified Lott (Device), 7 = Complete Lott (Timely, Safely). Assessment Date/Time Source Assessment Type Assessment Skill Assessment Score Assessment Details No data available for this section
--- OUTSIDE RECORDS SUMMARY | 2024-11-24 03:52 | XMS_ITS | Clinical Summary ---
Author Organization [facility] Address [facility] [place] [address] Care Team Providers Care Crm Business Analyst Name Role Phone None, Provider MD Primary Care Provider Unavaila ble Allergies No known active allergies Medications Medication Sig Dispense Quantity Refills Last Filled Start D ate End Date Status SLYND 4 MG Tab 05/27/2023 Acti ve Active Problems Problem Noted Date Diagnosed Date Acute back pain with sciatica, left 12/15/2021 Chronic pain of left knee 04/30/2021 Assessment & Plan (04/30/2021 6:02 PM CDT): We discussed the risks, benefits and alternatives. Patient has already failed formal physical therapy, ibuprofen, activity modification and bracing. Recommend MRI. Mechanical symptoms such as popping and occasionally giving way. BMI 37.0-37.9, adult 04/30/2021 Assessment & Plan (04/30/2021 6:02 PM CDT): We discussed the adverse effects of weight on osteoarthritis of the knee. For every 1 pound loss, 4 to 6 pounds of stress is relieved from the knee. We discussed low carbohydrate diet to help with weight loss. 80% of weight loss is through diet. Immunizations Name Administration Dates Next Due Adenovirus Vaccine 04/24/2019 Hepatitis A (Havrix 1440 [address].U) 06/14/2020,2018 Influenza Adult (Generic) 12/05/2021,09/06/2020, 08/18/2019 MODERNA COVID-19 (12+) MRNA, LNP-S, PF, 100 MCG/ 0.5 ML DOSE 01/14/2021,12/17/2020 Meningococcal (Menactra) 04/19/2019 Polio IPV (Ipol) 04/19/2019 Tdap (Generic) 04/19/2019 Social History Tobacco Use Types Packs/Day Years Used Date Smoking Tobacco: Never Smokeless Tobacco: Never Tobacco Cessation:Counseling Given: No Comments:nonsmoker Alcohol Use Standard Drinks/Week Comments Never 0 (1 standard drink = 0.6 oz pur e alcohol) PHQ-2 Answer Date Recorded Patient Health Questionnaire-2 Score 0 11/04/2023 Comments No Sex and Gender Information Value Date Recorded Sex Assigned at Not on file Legal Sex Female 12:32 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 Gender Identity Not on file Sexual Orientation Not on file Occupation Industry Job Start Date Job End Date [employer] Not on file Not on file Not on file Last Filed Vital Signs Vital Sign Reading Time Taken Comments Blood Pressure 98/68 11/04/2023 12:49 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 Pulse 93 11/04/2023 12:49 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 Temperature 37.1 C (98.8 F) 11/04/2023 12:49 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 Respiratory Rate 16 11/04/2023 12:49 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 Oxygen Saturation 98% 11/04/2023 12:49 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 Inhaled Oxygen Concentration - - Weight 92.5 kg (204 lb) 11/04/2023 12:49 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 Height 160 cm (5' 3 ) 11/04/2023 12:49 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 Body Mass Index 36.14 11/04/2023 12:49 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 Plan of Treatment Health Maintenance Due Date Last Done Comments Hepatitis B Vaccines (1 of 3 - 19+ 3-dose series) 2015 Annual Physical 04/24/2022 04/24/2021 COVID-19 Vaccine ( - 2023-2 5 season) 2024 01/14/2021, 12/17/2020 Influenza Adult (#1) 2024 12/05/2021, 09/06/2020, 08/18/2019 PHQ-2 (Physician [place]) 10/03/2024 11/04/2023 PHQ-2 (Physician [place]) 11/04/2024 11/04/2023 Cervical Cancer Screening Pa p Smear (Age 21 to 29) Every 3 Years 05/05/2025 05/05/2022 Cervical Cancer Screening 05/05/2025 DTaP, Tdap and Td Vaccines ( 2 - Td or Tdap) 04/19/2029 04/19/2019 Meningococcal Vaccine Aged Out 04/19/2019 No crystal soraya eligible based on patient's age to complete this topic Hepatitis C Completed 05/27/2022, 05/27/2022 HPV Vaccines Aged Out No longer eligi ble based on patient's age to complete this topic Meningococcal B Vaccine Aged Out No l onger eligible based on patient's age to complete this topic Pneumococcal Vaccine: Pediatrics (0 to 5 Years) and At-Risk Patients (6 to 64 Years) Aged Out No longer eligible b ased on patient's age to complete this topic RSV Immunizations Under 20 Months Aged Out No longer eligible b ased on patient's age to complete this topic Insurance DR ARZOLA [address] MEDICAL Care Teams Crm Business Analyst Relationship Specialty Start Date End Date None, Provider, PCP - General UNKNOWN PHYSICIAN SPECIALTY 11/23/23
== END 2024-11-24 04:24 | disposition home or self-care (01) ==
PROVIDERS: Emergency Provider Emergency Medicine
DX: O26.892 Other specified pregnancy related conditions, second trimester (principal); R10.30 Lower abdominal pain, unspecified; Z3A.13 13 weeks gestation of pregnancy
CPT/HCPCS: 81001; 81025; 99283

== ENCOUNTER 2025-04-23 20:24 | Observation (INO) | payer OTHER, SELFPAY ==
[2025-04-23] VITALS (9 sets, daily range): BP systolic 98–103; BP diastolic 50–70; PULSE 60–72; RESP 18; TEMP 36.9; BMI 34.6
--- NOTE | ~2025-04-23 | US_ITS ---
EXAMINATION: US OB BPP wo non-stress DATE: 04/23/2025 22:03 INDICATION: S/P fall . TECHNIQUE: Real-time ultrasound of the pelvis was performed. COMPARISON: None. FINDINGS: There is a single living fetus in breech presentation, longitudinal lie. The placenta is anterior, w ell distant from the cervix. heart rate is 135 bpm. The amniotic fluid index is 23.7 cm, which is normal (5th to 95th percentile is 7.9 to 24.9 cm). Biophysical profile performed by the technologist: breathing (30 sec sustained breathing in 30 minutes): 2 out of 2. movement (3 gross body movements in 30 minutes: 2 out of 2. tone (one episode of kbdhklk-gcejpcydd-lswaufv limb movement): 2 out of 2. Amniotic fluid pocket (2 cm): 2 out of 2. Total score: 8 out of 8. IMPRESSION: Single living fetus in vertex presentation. Biophysical profile 8 out of 8. YOLI 23.7, at the upper limits of normal. The amniotic fluid volume appears subjectively increased. Reviewed, dictated and finalized at location K. IMPRESSION: Single living fetus in vertex presentation. Biophysical profile 8 out of 8. YOLI 23.7, at the upper limits of normal. The amniotic fluid volume appears subj ectively increased.
--- OUTSIDE RECORDS SUMMARY | 2025-04-23 20:32 | XMS_ITS | Continuity of Care Document ---
Author Organization [facility] Address [address] [place] [address] Assessment No assessment recorded. Plan of Treatment Reminders Order Date Submit Date Provider Last Modified By Organization Details Last Modified Time Details Appointments U/S OB BPP 2024 01:00P M ULTRASOUND Not available Not available Not available NST 2024 01:30P M NST SCHEDULE Not available Not available Not available OB ROUTINE 2024 01:30P M Jammie Silvestre CNM Not available Not available Not available U/S OB BPP 2024 01:30P M ULTRASOUND Not available Not available Not available NST 2024 02:00P M NST SCHEDULE Not available Not available Not available OB ROUTINE 2024 01:30P M Jammie Silvestre CNM Not available Not available Not available U/S OB BPP 2024 01:30P M ULTRASOUND Not available Not available Not available NST 2024 02:00P M NST SCHEDULE Not available Not available Not available OB ROUTINE 2024 01:30P M Jammie Silvestre CNM Not available Not available Not available U/S OB BPP 2024 01:30P M ULTRASOUND Not available Not available Not available NST 2024 02:00P M NST SCHEDULE Not available Not available Not available OB ROUTINE 2024 01:30P M Jammie Silvestre CNM Not available Not available Not available U/S OB BPP 2024 01:30P M ULTRASOUND Not available Not available Not available NST 2024 02:00P M NST SCHEDULE Not available Not available Not available OB ROUTINE 2024 01:30P M Jammie Hairgle, HARSHAL Not available Not available Not available U/S OB BPP 2024 01:30P M ULTRASOUND Not available Not available Not available NST 2024 02:00P M NST SCHEDULE Not available Not available Not available Lab None recorde d. Referral None recorde d. Procedures None recorde d. Surgeries None recorde d. Imaging US, obstetr ic, biophys ical profile + non-str ess test [address] [facility], [address], [address], [place], [address], 04/23/2025 16:57:50 Medication Orders None recorde d. Patient TargetsNo targets recorded. Patient InstructionsNo instructions recorded. Reason for Referral None Reported. Results Created Date Observation Date Name Description Value Unit Range Abnormal Flag Note LastModifiedBy Organization Detail LastModifiedTime 11/21/19 25 11/21/2024 [UNIT Y] ANEUP LOIDY NIPT fraction 5.1% normal Not Available [facility] [address] [place] [address], [place], [address], 11/21/2024 01:56:12 11/21/19 25 11/21/2024 [UNIT Y] ANEUP LOIDY NIPT 22Q11.2 microdeletio n LOW RISK <1 in 10,000 normal Not Available [facility], [place], [address], 11/21/2024 01:56:12 11/21/19 25 11/21/2024 [UNIT Y] ANEUP LOIDY NIPT sex chromosome aneuploidy NOT DETECT ED normal Not Available [facility], [place], [address], 11/21/2024 01:56:12 11/21/19 25 11/21/2024 [UNIT Y] ANEUP LOIDY NIPT monosomy X LOW RISK <1 in 10,000 normal Not Available [facility] [address] [facility] [address], [place], [address], 11/21/2024 01:56:12 11/21/19 25 11/21/2024 [UNIT Y] ANEUP LOIDY NIPT trisomy 13 LOW RISK <1 in 10,000 normal Not Available [facility] [address] [facility] [address], [place], [address], 11/21/2024 01:56:12 11/21/19 25 11/21/2024 [UNIT Y] ANEUP LOIDY NIPT trisomy 18 LOW RISK <1 in 10,000 normal Not Available [facility] [address] [facility] [address] [facility] [address], [place], [address], 11/21/2024 01:56:12 11/21/19 25 11/21/2024 [UNIT Y] ANEUP LOIDY NIPT trisomy 21 LOW RISK <1 in 10,000 normal Not Available [facility] [address] [facility] [address], [place], [address], 11/21/2024 01:56:12 11/21/19 25 11/21/2024 [UNIT Y] ANEUP LOIDY NIPT sex FEMALE normal Not Available [facility] [address] [facility] [address] , [place], [address], 11/21/2024 01:56:12 11/21/19 25 11/21/2024 [UNIT Y] ANEUP LOIDY NIPT gestation SINGLE TON normal Not Available [facility] [address] [facility] [address] , [place], [address], 11/21/2024 01:56:12 11/21/19 25 11/21/2024 [UNIT Y] ANEUP LOIDY NIPT for detailed report, see pdf See PDF normal Not Available [facility] [address] [facility] , [place], [address], 11/21/2024 01:56:12 11/26/19 25 11/26/2024 [UNIT Y] SERA Perez sickle cell disease/beta -thalassemia /hemoglobino pathies carrier screen NEGATI VE normal Not Available [facility] [address] [facility] [address], [place], [address], 11/26/2024 19:09:25 20 25 11/26/2024 [UNIT Y] SERA Perez alpha-thalas semia carrier screen NEGATI VE normal Not Available [facility] [address] [facility] [address], [place], [address], 11/26/2024 19:09:25 20 25 11/26/2024 [UNIT Y] SERA Perez cystic fibrosis carrier screen NEGATI VE normal Not Available [facility] [address] [facility] [address], [place], [address], 11/26/2024 19:09:25 20 25 11/26/2024 [UNIT Y] SERA Perez spinal muscular atrophy carrier screen NEGATI VE 2 SMN1 copies , SNP not presen t normal Not Available [facility] [address] [facility] [address], [place], [address], 11/26/2024 19:09:25 20 25 11/26/2024 [UNIT Y] SERA Perez for detailed report, see pdf See PDF normal Not Available [facility] [address] [facility] [address] [facility] [address], [place], [address], 11/26/2024 19:09:25 11/14/19 25 11/14/2024 CBC W/DIF F WBC 7.5 10'3/ uL 3.5-10 .5 Not Available [facility] (Lab) [address], [place], [address], 11/16/2024 01:44:27 11/14/1911/14/2024 CBC W/DIF F RBC 4.24 10'6/ uL (based on docume nted legal sex) 3.80-5 .20 Not Available [facility] (Lab) [address], [place], [address], 11/16/2024 01:44:27 11/14/19 25 11/14/2024 CBC W/DIF F HGB 12.3 g/dL (based on docume nted legal sex) 11.6-1 5.4 Not Available [facility] (Lab) [address] [facility], [place], [address], 11/16/2024 01:44:27 11/14/19 25 11/14/2024 CBC W/DIF F HCT 37.0 % (based on docume nted legal sex) 34.0-4 5.0 Not Available [facility] (Lab) [address] [facility], [place], [address], 11/16/2024 01:44:27 11/14/19 25 11/14/2024 CBC W/DIF F MCV 87.3 fL 80.0-9 9.0 Not Available [facility] (Lab) [address] [facility] [address], [place], [address], 11/16/2024 01:44:27 11/14/19 25 11/14/2024 CBC W/DIF F MCH 29.0 pg 27.0-3 4.0 Not Available [facility] (Lab) [address] [facility] [address], [place], [address], 11/16/2024 01:44:27 11/14/19 25 11/14/2024 CBC W/DIF F MCHC 33.2 g/dL 32.0-3 5.5 Not Available [facility] (Lab) [address], [place], [address], 11/16/2024 01:44:27 11/14/19 25 11/14/2024 CBC W/DIF F RDW 12.9 % 11.0-1 5.0 Not Available [facility] (Lab) [address] [facility] [address], [place], [address], 11/16/2024 01:44:27 11/14/19 25 11/14/2024 CBC W/DIF F plt 356 10'3/ uL 150-40 0 Not Available [facility] (Lab) [address], [place], [address], 11/16/2024 01:44:27 11/14/19 25 11/14/2024 CBC W/DIF F MPV 10.6 fL 8.8-12 .1 Not Available [facility] (Lab) [address] [facility] [address], [place], [address], 11/16/2024 01:44:27 11/14/19 25 11/14/2024 CBC W/DIF F neutrophils 65.2 % 34.0-7 3.0 Not Available [facility] (Lab) [address] [facility] [address], [place], [address], 11/16/2024 01:44:27 11/14/19 25 11/14/2024 CBC W/DIF F lymphocytes 24.7 % 15.0-5 0.0 Not Available [facility] (Lab) [address] [facility] [address], [place], [address], 11/16/2024 01:44:27 11/14/19 25 11/14/2024 CBC W/DIF F monocytes 8.0 % 1.0-15 .0 Not Available [facility] (Lab) [address] [facility] [address], [place], [address], 11/16/2024 01:44:27 11/14/19 25 11/14/2024 CBC W/DIF F eosinophils 0.9 % 0.0-8. 0 Not Available [facility] (Lab) [address] [facility] [address], [place], [address], 11/16/2024 01:44:27 11/14/19 25 11/14/2024 CBC W/DIF F basophils 0.7 % 0.0-2. 0 Not Available [facility] (Lab) [address] [place], [address], 11/16/2024 01:44:27 11/14/19 25 11/14/2024 CBC W/DIF [...] separ ately if prese nt. Not Available [facility] (Lab) [address] [facility] [address], [place], [address], 11/16/2024 01:44:27 11/14/19 25 11/14/2024 CBC W/DIF F absolute neutrophils 4.9 10'3/ uL 1.5-8. 0 Not Available [facility] (Lab) [address], [place], [address], 11/16/2024 01:44:27 11/14/19 25 11/14/2024 CBC W/DIF F absolute lymphocytes 1.9 10'3/ uL 1.0-4. 0 Not Available [facility] (Lab) [address], [place], [address], 11/16/2024 01:44:27 11/14/19 25 11/14/2024 CBC W/DIF F absolute monocytes 0.6 10'3/ uL 0.2-1. 0 Not Available [facility] (Lab) [address] [facility] [address], [place], [address], 11/16/2024 01:44:27 11/14/19 25 11/14/2024 CBC W/DIF F absolute eosinophils 0.1 10'3/ uL 0.0-0. 6 Not Available [facility] (Lab) [address] [place], [address], 11/16/2024 01:44:27 11/14/19 25 11/14/2024 CBC W/DIF F absolute basophils 0.1 10'3/ uL 0.0-0. 3 Not Available [facility] (Lab) [address] [place], [address], 11/16/2024 01:44:27 11/14/1911/14/2024 CBC W/DIF F absolute immature granulocytes 0.0 [...] the indiv idual patie nt: https ://la bhand book. nm.or g/Gen derX Not Available [facility] (Lab) [address], [place], [address], 11/16/2024 01:44:27 11/14/1911/14/2024 HEPAT ITIS C ANTIB NIMISHA SCREE N, REFLE X TO CONFI RMATI ON hepatitis C antibody Non-re active non-re active Antib odies to HCV Not Detec etta, does not exclu de the possi bilit y of expos ure to HCV. Not Available [facility] (Lab) [address], [place], [address], 11/16/2024 01:44:28 11/14/1911/14/2024 HIV 1/2 ANTIG EN/AN TIBOD Y, REFLE X CONFI RMATI ON HIV antigen/anti body Nonrea ctive nonrea ctive HIV-1 antig en and HIV-1 /HIV- 2 antib odies were not detec etta. No labor atory evide nce of HIV infec tion. Not Available [facility] (Lab) [address], [place], [address], 11/16/2024 01:44:28 11/14/1911/14/2024 HEPAT ITIS B SURFA CE ANTIG EN hepatitis B surface antigen Non-re active non-re active This assay was perfo rmed using [employer] n reage nts and test kits. Value s obtai luiza with other assay metho ds or kits canno t be used inter alvarez eably . Not Available [facility] (Lab) [address] [facility] [address], [place], [address], 11/16/2024 01:44:28 11/14/19 25 11/14/2024 TSH, REFLE X FREE T4 TSH 2.25 uIU/m L 0.30-5 .33 Not Available [facility] (Lab) [address] [facility] [address], [place], [address], 11/16/2024 01:44:29 11/14/19 25 11/14/2024 RUBEL LA IGG ANTIB NIMISHA, QUANT rubella antibodies, IgG Reacti ve reacti ve Not Available [facility] (Lab) [address], [place], [address], 11/16/2024 01:44:29 11/14/19 25 11/14/2024 RUBEL LA IGG ANTIB NIMISHA, QUANT rubella antibodies, IgG quant 88.9 IU/mL >=10 Non-r eacti ve (Non- Immun e) <10 IU/mL React mendy (Immu ne) > or = 10 IU/mL Not Available [facility] (Lab) [address], [place], [address], 11/16/2024 01:44:29 11/14/19 25 11/14/2024 TYPE/ RH/SC REEN ABO/Rh type A POS Not Available [facility] (Lab) [address], [place], [address], 11/16/2024 01:44:29 11/14/19 25 11/14/2024 TYPE/ RH/SC REEN antibody screen NEG Not Available [facility] (Lab) [address] [place], [address], 11/16/2024 01:44:29 11/14/19 25 11/14/2024 TYPE/ RH/SC REEN exp date 2024 23:59 Not Available [facility] (Lab) [address] [place], [address], 11/16/2024 01:44:29 11/14/19 25 11/14/2024 HEMOG LOBIN A1C hemoglobin A1C 4.6 % 4.0-5. 6 The Ameri can [employer] marimar [employer] iatio n recom mends that a prima ry goal of thera py reginoul d be a HBA1C of < 7% and that physi cians shoul d reeva luate the treat ment regim en in patie nts with HBA1C value s consi stent ly > 8%. <5.7% Josselyn l 5.7 - 6.4% Incre ased risk for diabe marimar >=6.5 % Diagn ostic of diabe marimar <7.0% Goal of thera py >8.0% Actio n sugge sted Not Available [facility] (Lab) [address], [place], [address], 11/16/2024 01:44:29 11/14/19 25 11/14/2024 RPR SCREE N, REFLE X TITER /CONF IRMAT ION RPR screen Nonrea ctive nonrea ctive Not Available [facility] (Lab) [address], [place], [address], 11/16/2024 01:44:30 11/14/19 25 11/14/2024 CULTU RE: URINE result report SEE RESULT S BELOW Test: Cultu re: Urine Speci men Sourc e: Urine - Clean Catch Speci men Type: Urine Speci men Date: 2024 1430 Resul t Date: 2024 0006 Resul t Statu s: Final resul t Abnor mal: No Resul ting Lab: [facility] [address] [facility] [address] Tel: CULTU RE ----- ----- ----- --- Organ ism(s ) consi stent with uroge nital or skin pradeep . Repea t cultu re if sympt oms indic ate. Not Available [facility] (Lab) [address] , [place], [address], 11/17/2024 01:10:10 03/06/20 25 03/06/2025 HEMAT OCRIT (HCT) HCT 31.5 % (based on docume nted legal sex) 34.0-4 5.0 low Not Available [facility] (Lab) [address], [place], [address], 03/07/2025 12:17:21 03/06/20 25 03/06/2025 HEMOG LOBIN (HGB) HGB 10.6 g/dL (based on docume nted legal sex) 11.6-1 5.4 low Not Available [facility] (Lab) [address], [place], [address], 03/07/2025 12:17:21 03/06/20 25 03/06/2025 GTT - GESTA ERIK L SCREE N, ACOG OB glucose, 1 hour screen 98 mg/dL 70-135 Not Available [facility] (Lab) [address], [place], [address], 03/07/2025 12:17:22 03/06/2003/06/2025 HIV 1/2 ANTIG EN/AN TIBOD Y, REFLE X CONFI RMATI ON HIV antigen/anti body Nonrea ctive nonrea ctive HIV-1 antig en and HIV-1 /HIV- 2 antib odies were not detec etta. No labor atory evide nce of HIV infec tion. Not Available [facility] (Lab) [address], [place], [address], 03/07/2025 12:17:22 03/06/20 25 03/06/2025 RPR SCREE N, REFLE X TITER /CONF IRMAT ION RPR qualitative Nonrea ctive nonrea ctive Not Available [facility] (Lab) [address] [place], [address], 03/07/2025 12:17:22 11/14/19 25 11/14/2024 US, obste tric, nucha l trans lucen cy No observ ation record ed. [email or web address] [place] [address], [place], [address], 11/14/2024 12:49:58 11/14/19 25 11/14/2024 US, kaelae tric, 1st trime ster No observ ation record ed. [email or web address] [place] [address], [place], [address], 11/14/2024 12:50:09 11/14/19 25 11/14/2024 US, kaelae tric, follo w-up No observ ation record ed. [address], [place], [address], 11/20/2024 09:41:13 12/04/19 25 12/03/2024 US, obste tric, limit ed No observ ation record ed. [email or web address] [place] [address], [place], [address], 12/03/2024 17:18:57 12/04/19 25 12/03/2024 US, kaelae tric, follo w-up No observ ation record ed. [address], [place], [address], 12/03/2024 22:27:27 12/13/19 25 12/12/2024 US, obste tric, limit ed No observ ation record ed. [email or web address] [place] [address], [place], [address], 12/12/2024 12:03:35 12/13/19 25 12/12/2024 US, obste tric, limit ed No observ ation record ed. [email or web address] [address], [place], [address], 12/12/2024 12:29:18 01/10/20 25 01/09/2025 US, obste tric, 2nd or 3rd trime ster No observ ation record ed. [email or web address] [place] [address], [place], [address], 01/09/2025 13:07:04 01/10/20 25 01/09/2025 US, obste tric, 2nd or 3rd trime ster No observ ation record ed. [email or web address] [address], [place], [address], 01/10/2025 17:34:20 01/10/20 25 01/09/2025 US, obste tric, 2nd or 3rd trime ster No observ ation record ed. [address], [place], [address], 01/10/2025 17:36:16 02/07/20 25 02/06/2025 US, obste tric, follo w-up No observ ation record ed. [email or web address] [place] [address], [place], [address], 02/06/2025 17:26:10 02/07/20 25 02/06/2025 US, obste tric, follo w-up No observ ation record ed. [email or web address] [address], [place], [address], 02/08/2025 16:14:36 03/06/20 25 03/06/2025 US, obste tric, follo w-up No observ ation record ed. [email or web address] [address], [place], [address], 03/11/2025 22:08:43 03/06/20 25 03/06/2025 US, obste tric, follo w-up No observ ation record ed. [facility] [address], [place], [address], 03/06/2025 17:39:54 04/10/20 25 04/10/2025 US, obste tric, follo w-up No observ ation record ed. [email or web address] [place] [address], [place], [address], 04/10/2025 18:15:24 04/10/20 25 04/10/2025 US, obste tric, bioph ysica l profi le No observ ation record ed. [email or web address] [place] [address], [place], [address], 04/10/2025 18:15:33 04/10/2004/10/2025 US, obste tric, follo w-up No observ ation record ed. [email or web address] [address], [place], [address], 04/12/2025 16:10:46 04/10/20 25 04/10/2025 non-s tress test No observ ation record ed. [email or web address] [place] [address], [place], [address], 04/10/2025 17:48:22 04/16/20 25 04/16/2025 US, obste tric, bioph ysica l profi le + non-s tress test No observ ation record ed. [email or web address] [place] [address], [place], [address], 04/16/2025 17:32:59 04/16/20 25 04/16/2025 US, obste tric, bioph ysica l profi le + non-s tress test No observ ation record ed. [email or web address] [address], [place], [address], 04/17/2025 21:57:35 04/16/20 25 04/16/2025 non-s tress test No observ ation record ed. [email or web address] [place] [address], [place], [address], 04/17/2025 09:13:38 04/23/20 25 04/23/2025 imagi ng/di agnos tic resul t No observ ation record ed. [email or web address] [address], [place], [address], 04/23/2025 14:30:43 04/23/20 25 04/23/2025 US, obste tric, bioph ysica l profi le + non-s tress test No observ ation record ed. [email or web address] [place] [address], [place], [address], 04/23/2025 16:57:50 04/23/20 25 04/23/2025 non-s tress test No observ ation record ed. [email or web address] [place] [address], [place], [address], 04/23/2025 17:25:45 Result Notes None recorded. Problems Name Problem SNOMED Code Status Onset Date Resolution Date Notes Provider Name and Address Organization Details Recorded Time Transien t hyperten boris of pregnanc y - delivere d 293773600 Completed late in 3rd ttrimest er delivere d at 38 weeks Emily chaney [facility] 3 14:27:48 Lesion of vulva 243882335 Completed subcutan eous vulvar nodule 1 cm, mobile, smooth, feels benign. To observe. Emily cahney [facility] 3 14:27:48 Family history of leukemia 015244702 Completed daughter - Dx at 2 y/o Emily chaney [facility] 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 3 14:27:48 Acute depressi on 188083145 Completed zoloft 07/23 Emily chaney, [facility] 3 14:27:48 Low back pain 496901247 Completed flank pain, left side Emily chaney, [facility] 3 14:27:48 Pregnanc y 59938408 Completed 202101/05/2023 Emily chaney [facility] 5 11:24:34 Anemia 851599930 Completed 2021 slowfe 1 tab daily Emily chaney [facility] 3 14:27:48 Pregnanc y 67871697 Active 2024 Emily chaney, [facility] 5 11:24:34 Family history of leukemia 350299717 Active 2024 daughter dx age 2 Jammie Silvestre CNM [address], [place], [address], [facility] 5 15:14:20 History of hypothyr oidism 358502181 Active 2024 last pregnanc y, tsh wnl Jammie Silvestre CNM [address], [place], [address], [facility] 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 5 13:05:53 Problem Notes None recorded. Procedures Surgical History Date Name Laterality Status Provider Name and Address Organization Details Recorded Time 10/17/19 Date of Last Pap Smear completed Emily Rivas [facility] 10/17/2024 15:55:13 10/17/19 21 Nexplanon Removal completed Jammie Silvestre, HARSHAL [address], [place], [address], [facility] 10/17/2020 14:29:39 10/03/19 13 extraction of wisdom tooth completed Emily Rivas [facility] 10/01/2022 11:01:55 Imaging Results None recorded. Procedure Notes None recorded. Medical Equipment None [...] oral route as directed for 10 days. 12/12 completed Not Available Not Available Not Available acetamino phen 500 mg tablet 10/17 completed [...] every 8 hours by translin gual route. 12/12 completed Not Available Not Available Not Available sertralin e 50 mg tablet TAKE [...] Body mass index (BMI) Body weight Systolic And Diastolic Provider Name and Address Organization Details Last Updated DateTime 04/23/2025 160.02 cm 34.5 kg/m2 42006.51 g 98/61 mm[Hg] Iza Stone [facility] 04/23/2025 17:23:27 Social History Question Answer Notes LastModified by Organizat ion Details LastModified Time Tobacco Smoking Status Never Smoker María chaney [facility] 05/05/2022 14:01:05 If You Are , What Was Your Level Of Alcohol Consumption Prior To ? Occasional [email or web address] Information not available 05/05/2022 Are You Blind Or Do You Have Difficulty Seeing? No Information n ot available 02/08/2022 What Is Your Level Of Caffeine Consumption? Moderate [email or web address] Information not available 10/17/2020 In The 14 Days Before Symptom Onset, Have You Had Close Contact With A Laboratory-confirm ed COVID-19 While That Case Was Ill? No [email or web address] Information n ot available 11/05/2022 In The 14 Days Before Symptom Onset, Have You Had Close Contact With A Person Who Is Under Investigation For COVID-19 While That Person Was Ill? No [email or web address] Information not available 11/05/2022 Have You Been To An Area Known To Be High Risk For COVID-19? No [email or web address] Information not available 11/05/2022 Are You Deaf Or Do You Have Serious Difficulty Hearing? No Information not available 02/08/2022 What Type Of Diet Are You Following? REGULAR Information n ot available 02/08/2022 Have You Ever Been Counseled For Unhealthy Alcohol Use? No [email or web address] Information not available 05/05/2022 Do You Use Your Seat Belt Or Car Seat Routinely? Yes [email or web address] Information not available 11/05/2022 Do You Have Smoke And Carbon Monoxide Detectors In Your Home? Yes [email or web address] Information not available 11/05/2022 Do You Use Sunscreen Routinely? Yes [email or web address] Information not available 11/05/2022 Has Tobacco Cessation Counseling Been Provided? No [email or web address] Information not available 05/05/2022 Do You Have Difficulty Walking Or Climbing Stairs? No [email or web address] Information not available 05/05/2022 Sex: Unknown Functional Status Question Answer Note LastModified by Organizat ion Details LastModified Time Do you use any illicit or recreational drugs? No [email or web address] Information not available 10/17/2020 Do you or have you ever used any other forms of tobacco or nicotine? No Information not available 05/05/2022 What is your level of alcohol consumption? None [email or web address] Information not available 10/17/2024 Are you able to walk? YESWOREST Information not available 02/08/2022 Are you able to care for yourself? Yes [email or web address] Information n ot available 05/05/2022 Do you have difficulty dressing or bathing? No [email or web address] Information not available 05/05/2022 What is your exercise level? Moderate [email or web address] Information not available 10/17/2020 Mental Status Question Answer Note LastModified by Organization D etails LastModified Time Do you feel stressed (tense, restless, nervous, or anxious, or unable to sleep at night)? [id number] [email or web address] Information not available 11/05/2022 Family History Relationship Description Onset Age of this Age Resolved Age Notes LastModified by Organization Details LastModified Time Mother Asthma [email or web address] Not available 05/05/2022 14:53:55 Mother Hypertensive disorder [email or web address] Not available 05/05 14:53:55 Sister Asthma [email or web address] Not available 05/05/2022 14:53:55 Sister Hypertensive disorder [email or web address] Not available 05/05 14:53:55 Father Heart disease [email or web address] Not available 05/05 14:53:55 Father Diabetes mellitus Not available 05/05 14:53:56 Father Malignant tumor of kidney [email or web address] Not available 2024 14:58:05 Maternal Grandfather Seizure disorder [email or web address] Not available 2024 14:58:05 Medical History Condition Response Allergies (Food, seasonal, environmental ) N Other N Drug/Latex Allergies/Reactions N Blood Transfusion N Breast Cancer N Dermatologic Disorders N Lung Disease N [...] SNOMED-CT Code Diagnosis ICD10 Code Diagnosis Note [id number] Hernán Milian MD [facility] [address],[place] [address] 04/10/2025 14:53:21 04/10/2025 15:32:27 Single umbilical artery [id number] O09.899 Z87.718 O40.3XX0 Z3A.33 [id number] [facility] [address],[place] [address] 04/10/2025 14:53:46 04/10/2025 16:09:24 Gestation period, 33 weeks [id number] Z3A.33 [id number] [facility] [address],[place] [address] 04/10/2025 17:33:48 04/10/2025 17:49:24 Amniotic fluid volume below reference range [id number] O41.00X0 [id number] Hernán Milian MD [place] [address],[place] [address] 04/16/2025 14:27:16 04/16/2025 15:12:56 Polyhydramnios 31595919 O40.3XX0 O35.9XX0 Z3A.34 [id number] [facility] [address],[place] [address] 04/16/2025 14:27:37 04/16/2025 16:05:32 Oligohydramnios 11020957 O41.03X0 [id number] Jammie Silvestre CNM [place] [address],[place] [address] 04/17/2025 11:56:13 04/17/2025 12:14:52 Gestation period, 34 weeks [id number] Z3A.34 [id number] Hernán Milian MD [place] [address],[place] [address] 04/23/2025 14:04:37 04/23/2025 14:39:53 Suspected disorder [id number] O35.9XX0 O40.3XX0 Z3A.35 [id number] FISH PANIAGUA MD [place] [address],[place] [address] 04/23/2025 14:04:55 04/23/2025 17:28:31 Polyhydramnios [id number] O40.9XX0 Health Concerns Section Related Observation LastModified by Organization Detai ls LastModified Time None Recorded Concern Status LastModified by Organization Details LastModified Time None Recorded Payers Encounter Date Sequence Insurance Name Policy Number Policy Tomas Covered Member ID Tomas Member ID Guarantor Name 04/23/2025 1 [employer] ( - PPO) Romelia Pozo [id number] Romelia Pozo OBGyn Episode Ob Episode Information Episode Created Date Number of Fetuses Patient Bloodtype Patient rh Status Prepregnancy Weight lbs Domestic Partner Domestic Partner Phone Father Name 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 Status 11/14/19 25 1 A Positive [address] [employer] haus OPEN Fetus Data First Name Last Name Admitted to NICU Weight (g) Sex Living Outcome Pediatric Complications Fetus ID Race Codes Race Delivery Type [id number] Problems Problem Notes possible GHTN end of last pr [email or web address] Vessel cord- schedule q 4 week US, testingfundus has bicornuate appearanceSoft tissue mass Problem Name Start Date End Date Resolution Snomed Code Not e Family history of leukemia 02/06/2025 [id number] daughter dx age 2 Polyhydramnios 04/12/2025 [id number] History of hypothyroidism 02/06/2025 [id number] last pregnanc y, tsh wnl Seym[place] Calculation Initial Se[place]our Date Initial Exam [...] Latest Days Gestation 0 05/28/20 25 0 Pre- Flowsheet Flowsheet Date 11/14/2024 Loya Score Blood Edema Fundus Height Fundus Units Glucose Ketones Leukocytes Nitrite Labor Signs Protein Cervic Dilation Cervic Effacement Cervic Station neg none none trace Type Weight in lbs Pre/Post Dialysis Refused Weight 181.071530444843 BP Diastolic BP Location Tested BP Systolic BP Type 65 97 Fetus Heart Rate Present Fetus Movement A No Comments reviewed records, ?daisy BETANCOURT rec bASA at next visit, us today 2 subchorionic hemorrhages. may have been on thyroid medication, will check today with labs, anxiety and depression hx zoloft no current medication, will monitor. hx 2 vaginal deliveries, begin routine care Flowsheet Date 12/03/2024 Loya Score Blood Edema Fundus Height Fundus Units Glucose Ketones Leukocytes Nitrite Labor Signs Protein Cervic Dilation Cervic Effacement Cervic Station Type Weight in lbs Pre/Post Dialysis Refused BP Diastolic BP Location Tested BP Systolic BP Type Fetus Heart Rate Present Fetus Movement Comments Flowsheet Date 12/12/2024 Loya Score Blood Edema Fundus Height Fundus Units Glucose Ketones Leukocytes Nitrite Labor Signs Protein Cervic Dilation Cervic Effacement Cervic Station Type Weight in lbs Pre/Post Dialysis Refused BP Diastolic BP Location Tested BP Systolic BP Type Fetus Heart Rate Present Fetus Movement Comments Flowsheet Date 12/12/2024 Loya Score Blood Edema Fundus Height Fundus Units Glucose Ketones Leukocytes Nitrite Labor Signs Protein Cervic Dilation Cervic Effacement Cervic Station neg none Type Weight in lbs Pre/Post Dialysis Refused Weight 183.662217192711 BP Diastolic BP Location Tested BP Systolic BP Type 65 98 Fetus Heart Rate Present Fetus Movement A No Comments Patient states that has had some cramping. but doing much better US wnl today, plan US at 20 weeks, education and precautions f/u 4 weeks Flowsheet Date 01/09/2025 Loya Score Blood Edema Fundus Height Fundus Units Glucose Ketones Leukocytes Nitrite Labor Signs Protein Cervic Dilation Cervic Effacement Cervic Station Type Weight in lbs Pre/Post Dialysis Refused BP Diastolic BP Location Tested BP Systolic BP Type Fetus Heart Rate Present Fetus Movement Comments Flowsheet Date 01/09/2025 Loya Score Blood Edema Fundus Height Fundus Units Glucose Ketones Leukocytes Nitrite Labor Signs Protein Cervic Dilation Cervic Effacement Cervic Station neg none Type Weight in lbs Pre/Post Dialysis Refused 183.409890567109 BP Diastolic BP Location Tested BP Systolic BP Type 62 95 Fetus Heart Rate Present Fetus Movement A Yes Comments 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, 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 wnl, mob ile debris, did have some spotting but has resolved, 2 vessel cord discussed testing risk of growth restriction f/u 4 weeks Flowsheet Date 02/06/2025 Loya Score Blood Edema Fundus Height Fundus Units Glucose Ketones Leukocytes Nitrite Labor Signs Protein Cervic Dilation Cervic Effacement Cervic Station Type Weight in lbs Pre/Post Dialysis Refused BP Diastolic BP Location Tested BP Systolic BP Type Fetus Heart Rate Present Fetus Movement Comments Flowsheet Date 02/06/2025 Loya Score Blood Edema Fundus Height Fundus Units Glucose Ketones Leukocytes Nitrite Labor Signs Protein Cervic Dilation Cervic Effacement Cervic Station neg none Type Weight in lbs Pre/Post Dialysis Refused Weight 183.483162874575 BP Diastolic BP Location Tested BP Systolic BP Type 58 95 Fetus Heart Rate Present Fetus Movement A Yes Comments Patient is having pain, BH c ontractions and discharge. reviewed us efw 75%, soft tissue mass, continue to monitor precautions and education plan gct in 4 weeks Flowsheet Date 03/06/2025 Loya Score Blood Edema Fundus Height Fundus Units Glucose Ketones Leukocytes Nitrite Labor Signs Protein Cervic Dilation Cervic Effacement Cervic Station Type Weight in lbs Pre/Post Dialysis Refused BP Diastolic BP Location Tested BP Systolic BP Type Fetus Heart Rate Present Fetus Movement Comments Flowsheet Date 03/06/2025 Loya Score Blood Edema Fundus Height Fundus Units Glucose Ketones Leukocytes Nitrite Labor Signs Protein Cervic Dilation Cervic Effacement Cervic Station neg none Type Weight in lbs Pre/Post Dialysis Refused 186.892020574451 BP Diastolic BP Location Tested BP Systolic BP Type 61 93 Fetus Heart Rate Present Fetus Movement A Yes Comments Patient is having issues wit h veins in legs and some discharge. reviewed precautions, efw 79%, 2vc nonvascular tissue visible again f/u 4 weeks +FM, GCT today , f/u office 2 weeks Flowsheet Date 03/22/2025 Loya Score Blood Edema Fundus Height Fundus Units Glucose Ketones Leukocytes Nitrite Labor Signs Protein Cervic Dilation Cervic Effacement Cervic Station Type Weight in lbs Pre/Post Dialysis Refused Weight 189.167395543701 BP Diastolic BP Location Tested BP Systolic BP Type 61 94 Fetus Heart Rate Present Fetus Movement A Yes Comments Patient is having discharge. doing well 2v cord, plan rpt us in 2 weeks. education and precautions f/u 2 weeks Flowsheet Date 04/10/2025 Loya Score Blood Edema Fundus Height Fundus Units Glucose Ketones Leukocytes Nitrite Labor Signs Protein Cervic Dilation Cervic Effacement Cervic Station Type Weight in lbs Pre/Post Dialysis Refused BP Diastolic BP Location Tested BP Systolic BP Type Fetus Heart Rate Present Fetus Movement Comments Flowsheet Date 04/10/2025 Loya Score Blood Edema Fundus Height Fundus Units Glucose Ketones Leukocytes Nitrite Labor Signs Protein Cervic Dilation Cervic Effacement Cervic Station Type Weight in lbs Pre/Post Dialysis Refused 189.732995704355 BP Diastolic BP Location Tested BP Systolic BP Type 64 L arm 98 sitting Fetus Heart Rate Present Fetus Movement A Yes Comments flaquita 25 cm bpp 8/8 reviewed u s, plan nst, call for preadmit, education and precautions f/u one week Flowsheet Date 04/10/2025 Loya Score Blood Edema Fundus Height Fundus Units Glucose Ketones Leukocytes Nitrite Labor Signs Protein Cervic Dilation Cervic Effacement Cervic Station Type Weight in lbs Pre/Post Dialysis Refused BP Diastolic BP Location Tested BP Systolic BP Type Fetus Heart Rate Present Fetus Movement Comments Flowsheet Date 04/16/2025 Loya Score Blood Edema Fundus Height Fundus Units Glucose Ketones Leukocytes Nitrite Labor Signs Protein Cervic Dilation Cervic Effacement Cervic Station Type Weight in lbs Pre/Post Dialysis Refused BP Diastolic BP Location Tested BP Systolic BP Type Fetus Heart Rate Present Fetus Movement Comments Flowsheet Date 04/16/2025 Loya Score Blood Edema Fundus Height Fundus Units Glucose Ketones Leukocytes Nitrite Labor Signs Protein Cervic Dilation Cervic Effacement Cervic Station Type Weight in lbs Pre/Post Dialysis Refused Weight 190.054288564445 BP Diastolic BP Location Tested BP Systolic BP Type 62 L arm 104 sitting Fetus Heart Rate Present Fetus Movement Comments Flowsheet Date 04/17/2025 Loya Score Blood Edema Fundus Height Fundus Units Glucose Ketones Leukocytes Nitrite Labor Signs Protein Cervic Dilation Cervic Effacement Cervic Station Type Weight in lbs Pre/Post Dialysis Refused Weight 190.656892305790 BP Diastolic BP Location Tested BP Systolic BP Type 68 L arm 104 sitting Fetus Heart Rate Present Fetus Movement A Yes Comments NST bpp yesterday, +FM, plan maternity belt, education and precautions, call for preadmit f/u one week Flowsheet Date 04/23/2025 Loya Score Blood Edema Fundus Height Fundus Units Glucose Ketones Leukocytes Nitrite Labor Signs Protein Cervic Dilation Cervic Effacement Cervic Station Type Weight in lbs Pre/Post Dialysis Refused BP Diastolic BP Location Tested BP Systolic BP Type Fetus Heart Rate Present Fetus Movement Comments Flowsheet Date 04/23/2025 Loya Score Blood Edema Fundus Height Fundus Units Glucose Ketones Leukocytes Nitrite Labor Signs Protein Cervic Dilation Cervic Effacement Cervic Station Type Weight in lbs Pre/Post Dialysis Refused Weight 195.864773015717 BP Diastolic BP Location Tested BP Systolic BP Type 61 L arm 98 sitting Fetus Heart Rate Present Fetus Movement Comments Menstrual History Last Menstrual Date Menses Monthly [...]
--- OUTSIDE RECORDS SUMMARY | 2025-04-23 20:32 | XMS_ITS | Continuity of Care Document ---
Author Name [facility] Organization [facility] Care Team Providers Care Webbing Seamer Pound Net Name Role Phone [facility] Unavailable Unavailable Problems Combined list of problems [...] total refill(s ), Acute, 12/03/24 12:00:00 AM ACCOUNTS RECEIVABLE COORDINATOR, Pharmacy : [facility] Oral (given by mouth) Complet ed 12/03/20242024 6.0 8224R-1 26 MDG diazePAM 10 mg auto injector 10 mg, IntraMus cular, As Directed , After using ATNAA Use only when directed to by command* *, UAD post exposure prophyla xis., # 1 EA, 0 total refill(s ), Acute, 12/05/24 12:00:00 AM ACCOUNTS RECEIVABLE COORDINATOR, Pharmacy : [facility] IntraM uscula r (in a muscle ) Complet ed 12/05/20242024 1.0 8224R-1 26 MDG DuoDote 2.1 mg/0.7 mL-600 mg/2 mL intramuscul ar solution 2.7 mL, IntraMus cular, As Directed , Use only when directed to by command* * UAD on autoinje ctor, # 3 EA, 0 total refill(s ), Acute, Pharmacy : [facility] IntraM uscula r (in a muscle ) Complet ed 12/03/20242024 3.0 8224R-1 26 MDG levonorgest rel-ethinyl estradiol [...] 1 Ordered 2021 No Facilit y Access potassium iodide 130 mg oral tablet 1 tab(s), Oral, Daily, # 14 tab(s), 0 total refill(s ), Acute, Pharmacy : [facility] Oral (given by mouth) Complet ed 12/03/20242024 14.0 8224R-1 26 MDG predniSONE 10 mg oral tablet predniSO NE 10 mg oral tablet Start Date: 07/15/21 Status: Ordered Repeat number: 1 Ordered 2021 No Facilit y Access pyRIDostigm ine 30 mg oral tablet 1 tab(s), Oral, every 8 hr, # 42 tab(s), 0 total refill(s ), Acute, Pharmacy : [facility] Oral (given by mouth) Complet ed 12/03/20242024 42.0 8224R-1 26 MDG Reactive Skin Decontamina tion Lotion See Instruct ions, As Directed , # 3 packet(s ), 0 total refill(s ), Acute, Supply, Pharmacy : [facility] Complet ed 12/03/20242024 3.0 8224R-1 26 MDG Allergies, Adverse Reactions, Alerts Combined list of allergies from Department of Defense and Veterans Affairs facilities. It does not include entries that were removed or entered in error. Substance Category Reaction Severity Reaction type Status Date Reported Comments Source No Known Allergies Drug allergy (disorder) active 04/26/2019 [place] [address] Immunizations Combined list of available immunizations from the Department of Defense and Veterans Affairs facilities. 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 (MOD) complet ed SARS-COV- 2 (COVID-19 ) vaccine, mRNA, spike protein, LNP, preservat mendy free, 100 mcg or 50 mcg dose DoD COVID Vaccine Moderna 2020 Valerie odonnell Arm [id number] complet ed COVID Vaccine Moderna 12/17/20 Given Ambulat ory Pharmac y SARS-COV-2 (COVID-19) vaccine, mRNA, spike protein, LNP, preservative free, 100 mcg or 50 mcg dose 1 2020 CONNOR MAYA [id number] 207 Moderna US, Inc. (MOD) complet ed SARS-COV- 2 (COVID-19 ) vaccine, mRNA, spike protein, LNP, preservat mendy free, 100 mcg or 50 mcg dose [facility] influenza, injectable, quadrivalent- pf 2019 [id number] 150 Seqirus complet ed influenza , injectabl e, quadrival ent-pf 09/06/20 Given Ambulat ory Pharmac y Influenza, injectable, quadrivalent, preservative free 1 2019 [id number] 082 150 Seqirus (SEQ) complet ed Influenza , injectabl e, quadrival ent, preservat mendy free DoD hepatitis A adult vaccine 2019 [id number] 52 GlaxoSmithKli ne complet ed hepatitis A adult vaccine 06/14/20 Given Ambulat ory Pharmac y hepatitis A vaccine, adult dosage 2 2019 [id number] 52 [employer] (SKB) complet ed hepatitis A vaccine, adult dosage DoD influenza, injectable, quadrivalent- pf 2018 [id number] 594 150 Seqirus complet ed influenza , injectabl e, quadrival ent-pf 08/18/19 Given Ambulat ory Pharmac y Influenza, injectable, quadrivalent, preservative free 1 2018 [id number] 594 150 Seqirus (SEQ) complet ed Influenza , injectabl e, quadrival ent, preservat mendy free DoD adenovirus vaccine, live 2018 [id number] 143 Teva Pharmaceutica complet ed adenoviru s vaccine, live 04/24/19 Given Ambulat ory Pharmac y hepatitis A adult vaccine 2018 [id number] 52 GlaxoSmithKli ne complet ed hepatitis A adult vaccine 04/24/19 Given Ambulat ory Pharmac y hepatitis A vaccine, adult dosage 1 2018 [id number] 52 [facility] (SKB) complet ed hepatitis A vaccine, adult dosage DoD Adenovirus, type 4 and type 7, live, oral 1 2018 [id number] 3 143 [facility] ([facility]) complet ed Adenoviru s, type 4 and type 7, live, oral [facility] tetanus, diphtheria, acellular pertu is 2018 [id number] 115 GlaxoSmithKli ne complet ed tetanus, diphtheri a, acellular pertussis 04/19/19 Given Ambulat ory Pharmac y poliovirus vaccine, inactivated 2018 [id number] 10 sanofi pasteur complet ed polioviru s vaccine, inactivat ed 04/19/19 Given Ambulat ory Pharmac y meningococcal A,C,Y,W-135 (MCV4P) 2018 [id number] 114 sanofi pasteur complet ed meningoco ccal A,C,Y,W-1 35 (MCV4P) 04/19/19 Given Ambulat ory Pharmac y poliovirus vaccine, inactivated 1 2018 [id number] 10 Sanofi Pasteur (PMC) complet ed polioviru s vaccine, inactivat ed DoD meningococcal polysaccharid e (groups A, C, Y and W-135) diphtheria toxoid conjugate vaccine (MCV4P) 1 2018 [id number] 114 Sanofi Pasteur (PMC) complet ed meningoco ccal polysacch aride (groups A, C, Y and W-135) diphtheri a toxoid conjugate vaccine (MCV4P) DoD tetanus toxoid, reduced diphtheria toxoid, and acellular pertu is vaccine, adsorbed [address] (SKB) complet ed tetanus toxoid, reduced diphtheri [...] ( 4 7:51 AM) 07/30 N 5600A-U [facility] EPILAB Infectiou s Disease [...] Prevention' s HIV diagnostic algorithm. Refer to [facility] Lab Guide for additional information : https://[employer]. [facility]/ kj/kx5/EPIL ab/Pages/la b_guide.asp x Testing performed by [employer] sofie ortiz. 5600A-U SAFSAM EPILAB Miscellan eous Sendouts Repository Sample Received (01/04/24 7:57 AM) 01/03 N 5600A-U SAFSAM EPILAB Chemistry Beta hCG, Urine Qual Negative (01/04/24 7:57 AM) 01/03 N 0055A-3 [facility]- Man[facility]reet Miscellan eous Sendouts Repository Sample Received (12/03/23 [...] Prevention' s HIV diagnostic algorithm. Refer to [facility] Lab Guide for additional information : https://[employer]. [facility]/ kj/kx5/EPIL ab/Pages/la b_guide.asp x Testing performed by [employer] Medicalcen ce. 5600A-U SAFSAM EPILAB Infectiou s Disease HIV-1/O/2 Non-Reac tive 3 [...] Prevention' s HIV diagnostic algorithm. Refer to [facility] Lab Guide for additional information : https://[facility]/ kj/kx5/EPIL ab/Pages/la b_guide.asp x Testing performed by [employer] Medical[facility] ce. 5600A-U SAFSAM EPILAB Miscellan eous Sendouts Repository Sample Received (09/03/23 8:37 AM) 09/03 N 5600A-U Rivet GamesSAM EPILAB Encounters Combined list of: 1) Encounters from Department of Veterans Affairs facilities going backup to the last 18 months, not all VA inpatient encounters are included; 2) Encounters from the Department of Defense facilities going backup to 280 months. Location Location Details Encounter Type Encounter Number Reason For Visit Attending Provider ADM Date DC Date Status Disposition Source [facility] [place] [address](Hea ring Conservat ion, BMT) OUTPATIENT [id number] CAM WAGNER Osman 04/23 Released w/o Limitations [facility] [place] [address](H earing Conserv ation, BMT) [place] [address]([facility]) OUTPATIENT [id number] Notes Entered by: Marisol BANSAL 26 Apr 2019 0727 ------- ------- ------- ------- -- Skin Eruptri ons=Kesha r MARILY PAYAN 04/26 Released w/o Limitations [facility] [place] [address], [place] [address]([facility]) OUTPATIENT [id number] Notes Entered by: Marisol BANSAL 30 Apr 2019 0717 ------- ------- ------- ------- -- F/U-*Ra sh* [Prior Dr. Joon rhodes] MARILY PAYAN 04/30 Released w/o Limitations [facility] [place] [address] [place] [address](ATR 331 TRS,BMT) OUTPATIENT [id number] Notes Entered by: ST ELHAM BLANCHARD N 03 May 2019 1347 ------- ------- ------- ------- -- new left knee pain KAILASH BLANCHARD 05/03 Released with Work/Duty Limitations [facility] [place] [address](A TR 331 TRS,BMT ) [facility], [place] [address]([facility]) OUTPATIENT [id number] Notes Entered by: DOMINICK FERNANDEZ 04 May 2019 1500 ------- ------- ------- ------- -- Knee pain MARIA D CANALES V 05/04 Released with Work/Duty Limitations [facility] [place] [address]( ports Medicin e [facility], Surendra) [place] [address](ATR 331 TRS,BMT) OUTPATIENT [id number] Notes Entered by: ST JOCELYN BLANCHARDJOCELINE Perez 07 May 2019 1357 ------- ------- ------- ------- -- f/u left knee pain KAILASH BLANCHARD Ana 05/07 Released with Work/Duty Limitations [facility] [place] [address](A TR 331 TRS,BMT ) [place] [address](ATR 331 TRS,BMT) OUTPATIENT [id number] Notes Entered by: ST JOCELYN BLANCHARDJOCELINE N 16 May 2019 1441 ------- ------- ------- ------- -- f/u left knee pain KAILASH BLANCHARD Aan 05/16 Released with Work/Duty Limitations [facility] [place] [address](A TR 331 TRS,BMT ) [place] [address]([facility] [place]) OUTPATIENT [id number] Notes Entered by: EMY SCHULER 18 May 2019 1040 ------- ------- ------- ------- -- L knee MARIA D CANALES V 05/18 Released with Work/Duty Limitations [facility] [place] [address]( ports Medicin e [facility], Surendra) [facility]) OUTPATIENT [id number] Notes Entered by: LORENA VELAZQUEZ 10 Jul 2019 0630 ------- ------- ------- ------- -- SICK CALL- pulled muscle in R leg 366 LIVE MCRAE 07/10 Released with Work/Duty Limitations [employer]([facility]) [employer](Phy sical Therapy) OUTPATIENT [id number] Strain of unspeci fied muscles , fascia and tendons at thigh level, right CHRISTINA Quiñones 07/31 Released w/o Limitations [employer](P hysical Therapy ) [employer](Phy sical Therapy TMAS) OUTPATIENT [id number] ELIJAH HAQUE 08/01 Released w/o Limitations [employer](P hysical Therapy TMAS) [employer](Phy sical Therapy TMAS) OUTPATIENT [id number] DONALD KING G 08/03 Released w/o Limitations [employer](P hysical Therapy TMAS) [employer](Phy sical Therapy TMAS) OUTPATIENT [id number] ELIJAH HAQUE 08/08 Released w/o Limitations [employer](P hysical Therapy TMAS) [employer](Phy sical Therapy TMAS) OUTPATIENT [id number] ELIJAH HAQUE 08/14 Released w/o Limitations [employer](P hysical Therapy TMAS) [employer](Phy sical Therapy TMAS) OUTPATIENT [id number] ELIJAH HAQUE 08/16 Released w/o Limitations [employer](P hysical Therapy TMAS) [employer](Phy sical Therapy TMAS) OUTPATIENT [id number] COMFORT ORTIZ 08/21 Released w/o Limitations [employer](P hysical Therapy TMAS) [employer](Phy sical Therapy TMAS) OUTPATIENT [id number] ELIJAH HAQUE 08/24 Released w/o Limitations [employer](P hysical Therapy TMAS) [employer](Phy sical Therapy) OUTPATIENT [id number] CHRISTINA WINSLOW 09/04 Released w/o Limitations [employer](P hysical Therapy ) [employer] Manpreet RONQUILLO [place] TELE CONSULT [id number] Notes Entered by: EMETERIO SHAH 18 Jan 2020 1310 ------- ------- ------- ------- -- Medical Review EMETERIO MORALES 01/17 Released to [facility] [address] [place] [address])([facility]) [address] [place] [address])(Ashton demic Virus) OUTPATIENT [id number] POS/ASY MPTOMAT IAC MAX GANN 04/15 Released w/o Limitations [address] [place] [address])(P andemic Virus) [address] [place] [address])([facility]) OUTPATIENT [id number] Initial PHA JUSTEN ROWLAND 07/05 Released w/o Limitations [address] [place] [address])([facility]) [address] [place] [address])([facility]) OUTPATIENT [id number] Initial Eye Exam MED AYERS 07/05 Released w/o Limitations [address] [place] [address])([facility]) [address] [place] [address])([facility]) OUTPATIENT [id number] Notes Entered by: Lincoln BEDOLLA 11 Feb 2021 1408 ------- ------- ------- ------- -- RICA Roland 02/11 Released w/o Limitations [address] [place] [address])([facility]) [address] [place] [address])([facility]) OUTPATIENT [id number] Notes Entered by: EMETERIO SHAH 04 Jul 2021 0810 ------- ------- ------- ------- -- Fitness BRANDY Saldana 07/04 Released w/o Limitations [address] [place] [address])([facility]) [address] [place] [address])([facility]) TELE CONSULT [id number] Notes Entered by: EMETERIO SHAH 19 Aug 2021 1056 ------- ------- ------- ------- -- Follow Up - EMETERIO Valdivia 08/19 Other Not Elsewhere Classified [address] [place] [address])([address] [place] [address]) [address] [place] [address])([address] [place] [address]) OUTPATIENT [id number] Notes Entered by: Lincoln BEDOLLA 07 Oct 2021 1132 ------- ------- ------- ------- -- RICA Hassan 10/07 Released w/o Limitations [address] [place] [address])([address] [place] [address]) [address] [place] [address])([address] [place] [address]) TELE CONSULT [id number] Notes Entered by: EMETERIO SHAH 18 Nov 2021 1239 ------- ------- ------- ------- -- EMETERIO June 11/18 Other Not Elsewhere Classified [address] [place] [address])([address] [place] [address]) [address] [place] [address])([address] [place] [address]) OUTPATIENT [id number] Notes Entered by: EEMTERIO SHAH 02 Jan 2022 0921 ------- ------- ------- ------- -- Fitness TODD Chiu 01/02 Released w/o Limitations [address] [place] [address])( [facility]) [address] [place] [address])([address] [place] [address]) TELE CONSULT [id number] Notes Entered by: EMETERIO SHAH 12 Feb 2022 1142 ------- ------- ------- ------- -- Alexa rodriguez January 2022 EMETERIO MORALES 02/12 Other Not Elsewhere Classified [address] [place] [address])([facility]) [facility]) OUTPATIENT [id number] Notes Entered by: EMMA JOSEPH 13 Jun 2022 1238 ------- ------- ------- ------- -- PROTECT ION WORKPLA CE INTERVI EW ADEOLA MANZANO 06/13 Released w/o Limitations [facility])([facility]) [facility]) OUTPATIENT [id number] PRIORIT Y JUSTEN BAR 09/04 Released with Work/Duty Limitations [address] [place] [address])([facility]) 8224R-126 [facility]G Outpatient [id number] RICA BRITTANIEAARON 07/02 Discharge Disposition: Home or Self Care 8224R-1 26 JORDAN 0055A-375 th [facility] Outpatient [id number] RICA BRITTANIEAARON 07/30 Discharge Disposition: Home or Self Care 0055A-3 [facility] 8224R-126 Clinic [id number] RICA BRITTANIEAARON 11/03 Discharge Disposition: Home or Self Care 8224R-1 26 [facility]G 8224R-126 [facility] Clinic [id number] RICA BRITTANIEAARON 11/05 Discharge Disposition: Home or Self Care 8224R-1 26 MDG 8224R-126 MDG Outside Documentat ion Only [id number] 01/30 Discharge Disposition: Home or Self Care 8224R-1 26 [facility] Procedures Combined list of: 1) Procedures from Department of Veterans Affairs facilities going back up to thelast 18 months, not all VA non-surgical procedures are included; 2) All procedures from the Department of Defense facilities. Procedure Procedure Type Code Date Perfomer Esteban Hernandez jose Athletic Training Re-evaluation Athletic Training Re-evaluation 23703 05/17/20 19 KAILASH BLANCHARD DoD Athletic Training Re-evaluation Athletic Training Re-evaluation 32828 05/07/20 19 KAILASH BLANCHARD [facility] Crutches, underarm, other than wood, adjustable or fixed, pair, with pads, tips and handgrips 05/03/20 19 KAILASH BLANCHARD [facility] Threshold Audiogram (Pure Tone) Threshold Audiogram (Pure Tone) 92262 04/23/20 19 CAM WAGNER Exercises A isted Exercises For ROM Exercises Assisted Exercises For ROM 24319 CHRISTINA RAY Physical Therapy: ___ Se ion Segments, 15 Minutes Each Physical Therapy: ___ Session Segments, 15 Minutes Each 98118 ELIJAH HAQUE Physical Therapy Neuromuscular Re-education Physical Therapy Neuromuscular Re-education 05128 ELIJAH HAQUE Modalities Cryotherapy Cold Packs Modalities Cryotherapy Cold Packs 42775 ELIJAH HAQUE Physical Medicine Physical Therapy Re-Evaluation Physical Medicine Physical Therapy Re-Evaluation 51512 CHRISTINA RAY [facility] No data available for this section Ambulato ry Pharmacy Social History Combined list of available smoking, tobacco, and other social history from Department of Defense and Veterans Affairs facilities. Social History Type Response Date Comment [facility] e Sex Representation Female (finding) 01/08/2022 Unknown Organization This section is an empty social history section. [facility] Sexual Orientation Ambula tory Pharmacy Gender identity Ambulator y Pharmacy Assessment and Plan Combined list of future [...] today. 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 She [...] PHAQ Review Author: Glendy Carbajal Date: 11/05/24 [employer] ecg technician has completed annual PHA record review on 0 11/05/2024. Patient s PHAQ responses suggest Routine i tems requiring action. Retention Waiver: N o Profile: Y chitra Member is on Profile until 06/19/2025 Medications: [...] found. Allergies: N o Known Allergies Does medical services coordinator need Annual Mental Health review? Jeferson ROB VA Disability Rating: N o If, Yes please update below. Medical Assembler PHAQ review note: Routine PHAQ review completed. Member is due to complete her MHA. 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 Member on profile until 06/19/2025. Member wished to enroll in the Burn Pit Registry. Will explain the Registry is an opt out option now. Member does not report any allergies and does not wear any corrective lenses. Member reports good health with no c/o pain. Member was scheduled to follow up with the [facility] this afternoon for her shoulder injury while [...] PHAQ ready for PCM review and signature. Addendum by RICA BEDOLLA on December 03, 2024 16:10 ACCOUNTS RECEIVABLE COORDINATOR PHAQ Completed in [facility], [place] c opied below. Diagnosis is [id number] Medication reconciliation was accomplished. IMR requirements checked in [facility] (all GREEN). General c devonte performed i n chart review. Denies SI/HI. All questions answered. Member has no n on emergent positive responses on P KUMAR. I t has not inhibited member from performing their duties. Member is assumed fit for duty. Denies any other acute or chronic health concerns currently. Mental health resources to include the mental health clinic, OP, Power System Engineer, and One Source discussed with patient v ia review. Recommend f/u with PCM for any new or ongoing m edical concerns. Member can: 1) deploy 2) perform the duties of the assigned [employer], 3) meet retention medical standards, 4) complete the fitness assessment (FA), X08.8- A ir contaminants exposure i n past d eployment(s).Member has been exposed to but not limited to poor air quality, dust, mold, animal excrement. Member is not symptomatic currently but may have issues in the future. COPY OF PHAQ2 [id number]: A NNUAL PERIODIC HEALTH ASSESSMENT I. FAMILY AND DIVORCE LEGAL ASSISTANT INFORMATION AND DEMOGRAPHICS (SMI) 1. Last Name: NOHELIA 2. First Name: BERT 3. Middle Name: DALI 4. Assessment Date: 5. : 6. Age: 28 7. Gender: F 8. Do[employer] ID Number: [id number] 9. Service Branch: [employer] 10. 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 Unit Name: [address] [employer] [address] 14. Duty Station/Location: [place] 15. UIC: [id number] 16. Is this your first Periodic Health Assessment (PHA)?: N 17. Are you enrolled in a secure messaging system with your health care provider?: 18. Current contact information: Preferred Method: Day Time Phone DSN: [id number] Day Time Phone: [phone] Night Time Phone: [phone] Email 1: [email or web address] Email 2: Address: [address] [place] [address] City: [place] State: [place] Zip Code: [address] 19. Point of contact who can always reach you: Name: Ronaldo Nohelia Phone 1: [phone] Phone 2: [email or web address]: [email or web address] Address: [address] [place] [address]: [facility]: [place] Zip Code: [address] II. DEPLOYMENT INFORMATION (DEP) 1. [ 1 ] Total number of deployments in the PAST 5 YEARS 2. [ [employer] ] Primary country of last deployment 3. [ ] Date departed theater 4. [ N ] Are you going to deploy within the NEXT 120 DAYS? III. 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 [ No ] Does your specialty require an operational duty physical exam? 4. [ Yes ] Are you currently enrolled in a medical surveillance/occupational health program?: Yes IV. MEDICAL CONDITIONS (KEVIN): 1. Since your last PHA, have you experienced any of the following health conditions, and if so, what is your status? [ ] Conditions with no medical care [ ] Conditions with medical care, but no longer under treatment [ ] Conditions with medical care, and NOW under treatment 2. Since your last PHA, have you experienced any of the following health conditions, and if so, what is your status? [ ] Conditions with no medical care [ ] Conditions with medical care, but no longer under treatment [ ] Conditions with medical care, and NOW under treatment 3. For any condition marked YES in question 1 or 2, are you currently on any profile or limited duty for that condition? [ ] Conditions 4. [ Yes ] Have you been based or stationed at a location where an open burn pit was used? 5. [ Yes ] Have you been exposed to toxic airborne chemicals or other airborne contaminants? 6. [ No ] Are you enrolled in the Airborne Hazards and Open Burn Pit Registry? 7. [ Yes ] Federal law requires eligible members to enroll in the Airborne Hazards and Open Burn Pit Registry or opt-out. If eligble, choose one: 8. Have you had any surgery since your last PHA?: No 10.a. [ No ] Since your last PHA, has a health care provider recommended surgery(s) that you have not had? 11.a. [ No ] Do you currently require hearing aids, special medical supplies, CPAP, adaptive equipment, assistive technology devices, and/or other special accommodations? 12.a. [ No ] Do you have a waiver or profile for any part of your Service's physical fitness test? 13.a. [ No ] Do you have any problems wearing a gas mask, ballistic helmet, body armor, and/or chemical/biological protective garments? 14.a. [ No ] Have you ever been told by a health care provider that you SHOULD NOT receive an immunization for medical reasons? 15.a. [ No ] Do you have a permanent profile or an Assignment Limitation Code C? 16.a. [ No ] Are you on a temporary profile or limited duty? 17. [ 0 ] During the PAST 2 years, how many times have you been placed on a temporary profile or on limited duty? V. INDIVIDUAL MEDICAL READINESS (IMR) 1. [ No ] Do you have any allergies? 3. [ Not required ] Do you have red medical warning dog tags? 4. [ No ] Do you wear corrective lenses? . BEHAVIORAL HEALTH (MHA) 1. a. [ None ] Over the PAST MONTH, what major life stressors have you experienced that are a cause of significant concern or make it difficult for you to do your work, take care of things at home, or get along with other people (for example, serious conflicts with others, relationship problems, or a legal, disciplinary or financial problem)? 2. a. [ No ] In the PAST YEAR did you receive care for any mental health condition or concern such as, but not limited to post traumatic stress disorder (PTSD), depression, anxiety disorder, alcohol abuse or substance abuse? 3. [ None ] What prescription or over-the counter medications (including herbals/supplements) for sleep, pain, combat stress, or a mental health problem are you CURRENTLY taking? 4. a. [ No ] In the past 12 months, have you gambled? 5. a. [ Never ] How often do you have a drink containing alcohol? 6. Have you ever had any experience that was so frightening, horrible, or upsetting that in the PAST MONTH, you: 6. a. [ No ] Have had nightmares about it or thought about it when you did not want to? 6. b. [ No ] Tried hard not to think about it or went out of your way to avoid situations that remind you of it? 6. c. [ No ] Were constantly on guard, watchful or easily startled? 6. d. [ No ] Coleridge numb or detached from others, activities, or your surroundings? 6. e. [ Not answered ] Coleridge guilt or unable to stop blaming yourself or others for the event(s) or any problems the event(s) may have caused? 7. Over the LAST 2 WEEKS, how often have you been bothered by the following problems? 7. a. [ Not at all ] Little interest or pleasure in doing things 7. b. [ Not at all ] Feeling down, depressed, or hopeless 8. [ No ] Would you like to schedule an appointment with a health care provider to discuss any health concern(s)? 9. [ No ] Are you interested in receiving information or assistance for a stress, emotional or alcohol concern? 10. [ No ] Are you interested in receiving assistance for a family or relationship concern? 11. [ No ] Would you like to schedule a visit with a corporate claims examiner, mental health care provider, or a community support counselor? VII. FAMILY HISTORY AND LIFESTYLE (LIF) 1. [ Good ] Overall, how would you rate your health during the PAST MONTH? 2. [ Cancer, Heart-related conditions, Diabet ] Member indicates that family members have the following problems 3. The following family members has/had a history of cancer: kidney: Father lung: Father thyroid: Sister 4. The following family members has/had a history of heart-related conditions: High Blood Pressure: Mother, Sister Heart Attack: Father 5. The following family members has/had a history of diabetes: Type II: Father 6. [ Yes ] I participate in moderate intensity physical activites at least 2.5 hours, or a combination of moderate and vigorous aerobic activites, for at least 75 minutes per week. 7. In a typical week, I do physical activities specifically designed to STRENGTHEN my muscles: [ 4 ] Day(s) per week 8. [ None ] What prescriptions or [id number] medications are you CURRENTLY taking for health problems on a ROUTINE BASIS? 9. Which of the following products have you taken since your last PHA: None of the above 11. Think about the PAST 30 DAYS. How often did you eat/drink the following foods/beverages? [ 1 serving per day ] Fruits [ 1 serving per day ] Vegetables [ 1 serving per day ] Starchy Vegetables [ 2 servings per day ] Whole Grains [ 1 or 2 servings per week ] Dairy and Calcium Containing Foods [ 1 or 2 servings per week ] Fish [ 2 servings per day ] Lean Protein [ 1 or 2 servings per week ] Sugar-Sweetened Beverages 12. [ No ] Have you had a cholesterol check by a health geriatric care manager within the PAST 5 YEARS? 13.a. In the PAST 30 DAYS, which of the following products have you used on at least one day? None 15. Which of the following best describes your past tobacco use? I have never used tobacco products. 16. [ No ] Are you regularly exposed to secondhand smoke? 17. [ 7 to 9 hours ] During the LAST 2 WEEKS, how many hours of sleep did you get on most days? 18. [ No ] During the LAST 2 WEEKS, have you felt impaired or unable to adequately perform due to sleepiness or poor quality sleep? 19. [ No ] Have you had any unexplained weight loss or gain since your last PHA? 20. Member is not at risk for sexually transmitted infections. 22. Since your last PHA, what, if anything, have you and your partner used to keep from getting ? [ I am, or my partner is, currently . ] I am not actively taking steps to prevent as 23. [ Yes ] In the last year, have you or your partner had a scare, where you were not trying to get but were worried enough to use a home test? VIII. WOMEN'S HEALTH (WOM) 1. [ No ] Do you wish to receive contraceptive counseling? 2. [ I am not now, and was not or delivered in the past 12 months ] Which of the following best describes you? 3. [ No ] Have you had a total hysterectomy? 4. [ No ] Are you postmenopausal and no longer experiencing menstrual cycles? 5. [ No ] Are you currently taking folic acid or a vitamin containing folic acid 6. [ No ] Do you have heavy and/or irregular menstrual cycles/pain or premenstrual syndrome (PMS)? 7. [ No ] Do you have recurrent urinary tract infections? 8. [ Yes ] Have you had a Pap test within the PAST 3 YEARS? 9. [ No ] Have you ever had an abnormal Pap Test? 13. [ No ] Do you have a history of gestational diabetes? IX. RESERVE COMPONENT (RES) 1. [ No ] Do you have an injury, illness, Or disease which was incurred or aggravated while in a duty status since your last PHA? 4. [ Yes - ] Are you currently coverered under a health insurance policy? 5.a. [No, I have never applied for Worker's Compensation ] Do you have any current physical or mental health limitations related to a Worker's Compensation claim? 6. [ No ] Have you applied for or have you received a VA disability rating? X. OTHER MEDICAL (OTH) 1. [ 0 ] Rate the amount of pain you have had, on average, over the PAST 24 HOURS 3. [ No ] Since your last PHA, have you received care or treatment for any medical and/or mental health condition(s) from a civilian or non- facility? 5. Member acknowledged responsibility for reporting health issues. 7. [ No ] Woud you like to schedule an appointment with a health care provider to discuss any health concerns? XI. SEPARATION AND JAIL 1. [ No ] Are you planning to separate or retire within the next year from Active Duty or [place] Duty (activated for greater than 30 continuous days) OR do you intend to file a claim for disability compensation with the Veterans Benefits Administration? PART B. RECORD REVIEW AND RECOMMENDATIONS I. RECORD REVIEWER INFORMATION 1. Last Name: CARLTON 2. First Name: GLENDY 3. Middle Name: Earlene 4. Service Branch: [employer] 5. Status: [employer] [place] or Full-Time Support 6. 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 EMAIL: [email or web address] 8. Facility: [address] [facility] 9. Unit: [facility] 10. Address: [address] [place] [address]. State: [facility]. Zip Code: [address] 13. 14. Date Record Review: II. MEDICAL SCREENING 1. 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 [ 5 feet 3 inches Date: ] geology faculty member's most recently documented height 3. [ 180 pounds Date: ] geology faculty member's most recently documented weight 4. [ 95/62 Date: ] geology faculty member's most recently documented blood pressure reading 5. [ No ] Does the geology faculty member have a history of abnormal blood pressure since their last PHA? 6. [ Yes ] Does the geology faculty member have a laboratory test of sickle cell trait documented in their permanent medical record? 7. [ No Cholesterol Test Documented ] What is the date of the geology faculty member's most recently documented cholesterol test? 9. [ Vitamins ] List of geology faculty member's active medications listed in their permanent medical record 10. [ No ] Is there a discrepancy between the active medication record review and the geology faculty member's self-reported list of medications? 11. [ Civilian Dr for ] List documented significant care the geology faculty member has received since their last PHA from a provider OUTSIDE the Health System 12. [ Yes: Civilian Dr for ] Is there a discrepancy between the geology faculty member's list of OUTSIDE care (from OT5), and the OUTSIDE care found in the record? 13. [ No Inside Care Documented ] List documented significant care the geology faculty member has received since their last PHA from a provider INSIDE the Health System 15. [ Not Answered ] Confirm that vaccine exemptions are listed in the medical record for each vaccine listed III. OCCUPATION-SPECIFIC EXAMINATIONS 2. [ ] When was the geology faculty member's most recently documented evaluation? IV. FAMILY HISTORY AND LIFESTYLE 1. [ Yes ] Does the [id number] reflect the geology faculty member's reported family history? V. WOMEN'S HEALTH 3. [ Normal ] Date and result of the most recent Pap test 4. [ ] Notes from review of health records associated with history of abnormal Pap, colposcopy, excisional procedure, or cryotherapy . DEPLOYMENT-RELATED HEALTH ASSESSMENTS 1. [ No ] Based on your check of records, does the geology faculty member have any due or overdue deployment health assessments which need to be completed with this PHA? VII. INDIVIDUAL MEDICAL READINESS 1. [ No ] Does the geology faculty member have an Assignment Limitation Code C? 3. [ Classification: 1 ] Most recently documented dental exam 4. [ Yes ] Is the geology faculty member current on all required immunizations in the immunization tracking system? 6. Does the geology faculty member have the following laboratory tests documented in their permanent medical record? [ Yes ] HIV test within the PAST 24 months [ Yes ] G6PD results on file [ Yes ] Blood type and Rh on file [ Yes ] DNA test on file IX. ADDITIONAL RECORD REVIEWER COMMENTS 1. This record review does NOT have a need for provider notification or referral.2. Additional comments about this record review that need to be forwarded to the Health Insecticide Sprayer completing PART C: Routine PHAQ review complete. See notes in [facility]. Date Record Review Completed: PART C. HEALTH CARE PROVIDER I. MENTAL HEALTH ASSESSMENT (MHA) PROVIDER INFORMATION 1. Last Name: CHARLIE 2. First Name: MARIELA 3. Middle Name: Leslie 4. Service Branch: [employer] 5. 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 EMAIL: [email or web address] 8. Facility: [address] 9. Unit: [facility] 10. Address: [address] [place] [address] 11. State: [place] 12. Zip Code: [address] 13. 14. Date HCP Review initiated: 1. Member marked that they did not have a concern or a difficulty with a major life stressor. 2. Address concerns identified on member questions 2 and 3. History of mental health care: N/A Member's response: Provider's comments: Medications: N/A Member's response: pre-charli vitamins Provider's comments: 3. Member's AUDIT-C screening score was 0. (nothing required) 4. Member did not christina yes on two or more of questions 6a through 6e. 5. Member did not christina More than half the days or nearly every day on question 7a or 7b. 6. Suicide risk evaluation. 6. a. Ask: Over the past month, have you wished you were or wished you could go to sleep and not wake up?: No 6. b. Ask: Have you actually had any thoughts of killing yourself?: No 6. f. 1. Ask: In you lifetime, have you done anything, started to do anything, or prepared to do anything to end your life?: No 6. g. Further risk assessment comments: 7. Member states that they have not had thoughts or concerns over the past month that they might hurt or lose control with someone. 9. Summary of Provider's identified concerns needing referrals: None 11. Comments: 13. Supplemental services recommended/information provided: [facility] Date MHA Certified: III. PERIODIC HEALTH ASSESSMENT (PHA) PROVIDER INFORMATION 1. Last Name: CHIOMA 2. First Name: RICA 3. Middle Name: Arley 4. Service Branch: [employer] 5. Status: [facility] 6. Title: Physician (, DO) 7. EMAIL: [email or web address] 8. Facility: [address] [facility] [facility] 9. Unit: [address] [facility] 10. Address: [address] [place] [address] 11. State: [place] 12. Zip Code: [address] 13. Phone: [phone] 14. Date HCP Review initiated: IV. PERIODIC HEALTH ASSESSMENT PROVIDER RECOMMENDATIONS and REFERRALS 1. Provider concerns with this assessment: No issues or concerns identified V. SUMMARY AND COMMENTS 1. Additional information summarizing findings during the geology faculty member assessment: 2. Provider Comments: . INDIVIDUAL MEDICAL READINESS DISPOSITION DETERMINATION KEVIN: Not Ready DEN: Ready IMM: Ready LAB: Ready ME: Ready IMR Status: Partially Medically Ready VII. SERVICE MEDICAL DEPLOYABILITY EVALUATION INDICATED Based on your review of all documentation, is the geology faculty member medically deployable without limitations? Reference Ramon 6490.07 No (geology faculty member currently has a concern/medical condition that DOES NOT require duty limitation(s), but COULD limit deployability) Date PHA Completed: END OF FE0724 REPORT PROVIDER: [employer] [place] ANG, MC, SFS Chief, Aerospace Medicine, [facility] [place] [employer] Email: [email or web address] COMM: [phone] DSN:[id number] FAX: [phone] Extracted from:Title: DHA3 Author: RIOS JOHN, EMT Date: 11/03/24 Patient is here to complete her DHA3. 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 Was doing some lifting of heavy materials and reports sore left shoulder. Will be seeing [facility] in a few days. Member reports symptoms getting better. No limiting conditions from recent deployment at this time. POST DEPLOYMENT HEALTH RE-ASSESSMENT (BM1972 SEP 2023) Last Name: NOHELIA First Name: BERT Moshe ID: [id number] Date of : Gender: Female Service Branch: [employer] Component: [employer] Pay Grade: E5 --- Date departed theater: Country: [place] --- Summary of provider's identified concerns needing referral: Recommended referral(s): None. Referral Time Comments: --- Provider's Name: CHRISTINA RUSSO [facility], [facility] Date: --- 1. Address concerns identified [...] comments: nothing to add. To see [facility] 05 NOV 2024 on this. Hospitalized since [...] or easily startled? 13. d. No : Coleridge numb or detached from others, activities, or your surroundings 13. e. No : Coleridge guilt or unable to stop blaming yourself [...] like to schedule a visit with a corporate claims examiner, mental health care provider, or a community support counselor? Extracted from:Title: Deployment Meds Author: Glendy Roldan Date: 12/05/23 Member completed her DHA1 during December and requires BW/CW meds. G6PD: Normal Addendum by RICA BEDOLLA on December 05, 2023 13:36 ACCOUNTS RECEIVABLE COORDINATOR [facility] predeployment orders for BW/CW If G6PD deficient we are substituting doxy for cipro ALLERGIES: No Known Allergies BW/CW ordered for pharmacy o Three Antidote Treatment Nerve Agent Auto-injectors (ATNAA); o One Diazepam (KATHLEEN) Auto-injector; o Six Ciprofloxacin 500mg tablets - or S ix Doxycycline 100mg tablets; o Forty-two Pyridostigmine [place] (HUMBERTO) tablets; o Fourteen Potassium Iodide 130mg tablets; o One Reactive Skin Decontamination Lotion (RSDL) pouch. Extracted from:Title: PELON appointment Author: PORTIA MCFARLANE Date: 12/03/23 Member here for DRHA1 appointment. Addendum by LINDA AMOS on December 03, 2023 10:51 ACCOUNTS RECEIVABLE COORDINATOR PRE-DEPLOYMENT HEALTH ASSESSMENT ([id number] JUL 2015) Last Name: NOHELIA First Name: BERT InstaGIS Number: [id number] Date of : Gender: Female Service Branch: [employer] Component: [employer] Pay Grade: E4 --- Estimated date of upcoming deployment: Country: [place] Number of previous deployments: 0 --- [...] watchful or easily startled? No 11. d. Coleridge numb or detached from others, activities, or [...] PHAQ Review Author: MED PETER Date: 10/07/23 [facility] ecg technician has completed annual PHA record review [...] medications found. Allergies: No Known Allergies Does medical services coordinator need Annual Mental Health review? YES VA Disability Rating: No If yes please update below. District Agent Note: Member is a pre-deployer that reports she is in good health with no pain scale, delivered a baby in the last 6-12 months, no profile, reports no medications all though there a few active medications. Member has nothing more to report. PHAQ ready for PCM review and signature. 04/24/2025 [id number] MD Functional Status Combined list of recent functional and cognitive assessments recorded at Department of Defense and Veterans Affairs (VA).VA Functional Orange Measurement (FIM) Scale: 1 = Total Assistance (Subject = 0% +), 2 = Maximal Assistance (Subject = 25% +), 3 = Moderate Assistance (Subject = 50% +), 4 = Minimal Assistance (Subject = 75% +), 5 = Supervision, 6 = Modified Orange (Device), 7 = Complete Orange (Timely, Safely). Assessment Date/Time Source Assessment Type Assessment Skill Assessment Score Assessment Details No data available for this section
--- OUTSIDE RECORDS SUMMARY | 2025-04-23 20:32 | XMS_ITS | Data Portability ---
Author Organization [facility] Address [address] [place] [address] Assessment Encounter Date Assessment Date Assessment LastModified by Organization Details LastModified Time 04/17/2025 04/17/2025 Patient is _34 __weeks . Discussed plan. Not available 04/17/2025 12:05:41 Plan of Treatment Reminders Order Date Submit [...] available OB ROUTINE 2024 01:30P M Jammie Silvestre, CNM Not available Not available Not available U/S OB BPP 2024 01:30P M ULTRASOUND Not available Not available Not available NST 2024 02:00P M NST SCHEDULE Not available Not available Not available OB ROUTINE 2024 01:30P M Jammie Silvestre, CNM Not available Not available Not available U/S OB BPP 2024 01:30P M ULTRASOUND Not available Not available Not available NST 2024 02:00P M NST SCHEDULE Not available Not available Not available Lab None recorde d. Referral None recorde d. Procedures None recorde d. Surgeries None recorde d. Imaging non-str ess test 2024 025 [email or web address] [address], [place], [address], 04/23/2025 17:28:31 , [facility] ic, biophys ical profile + non-str ess test 2024 025 MONO [address], [address], [place], [address], 04/23/2025 16:57:50 non-str ess test 2024 025 [email or web address] [address], [place], [address], 04/16/2025 19:51:27 [place], [facility] ic, biophys ical profile + non-str ess test 2024 025 [email or web address] [address], [address], [place], [address], 04/17/2025 08:38:43 Medication Orders None recorde d. Patient TargetsNo targets recorded. Patient InstructionsNo instructions recorded. Reason for Referral None Reported. Results Created Date Observation Date Name Description Value Unit Range Abnormal Flag Note LastModifiedBy Organization Detail LastModifiedTime 04/10/202025 US, obste tric, follo w-up No observ ation record ed. [email or web address] [facility] [address], [place], [address], 04/10/2025 18:15:24 04/10/20 25 04/10/2025 US, obste tric, bioph ysica l profi le No observ ation record ed. [email or web address] [facility] [address], [place], [address], 04/10/2025 18:15:33 04/10/20 25 04/10/2025 US, obste tric, follo w-up No observ ation record ed. [email or web address] [address], [place], [address], 04/12/2025 16:10:46 04/10/20 25 04/10/2025 non-s tress test No observ ation record ed. [email or web address] [address], [place], [address], 04/10/2025 17:48:22 04/16/20 25 04/16/2025 US, obste tric, bioph ysica l profi le + non-s tress test No observ ation record ed. [email or web address] [address] [address], [place], [address], 04/16/2025 17:32:59 04/16/20 25 04/16/2025 US, obste tric, bioph ysica l profi le + non-s tress test No observ ation record ed. [email or web address] [address], [place], [address], 04/17/2025 21:57:35 04/16/20 25 04/16/2025 non-s tress test No observ ation record ed. [email or web address] [address], [place], [address], 04/17/2025 09:13:38 04/23/20 25 04/23/2025 imagi ng/di agnos tic resul t No observ ation record ed. [email or web address] [address], [place], [address], 04/23/2025 14:30:43 04/23/20 25 04/23/2025 US, obste tric, bioph ysica l profi le + non-s tress test No observ ation record ed. [email or web address] [address], [place], [address], 04/23/2025 16:57:50 04/23/20 25 04/23/2025 non-s tress test No observ ation record ed. [email or web address] [address] [address], [place], [address], 04/23/2025 17:25:45 Result Notes None recorded. Problems Name Problem SNOMED Code Status Onset Date Resolution Date Notes Provider Name and Address Organization Details Recorded Time Transien t hyperten boris of pregnanc y - delivere d 401282834 Completed late in 3rd ttrimest er delivere d at 38 weeks Emily chaney [facility] 3 14:27:48 Lesion of vulva 597216271 Completed subcutan eous vulvar nodule 1 cm, mobile, smooth, feels benign. To observe. Emily chaney [facility] 3 14:27:48 Family history of leukemia 546442808 Completed daughter - Dx at 3 y/o Emily chaney [facility] 3 14:27:48 Hypothyr oidism 66640877 Completed in pregnanc y; 07/26 inc to 50mcg daily, repeat around 11/18 Emily chaney [facility] 3 14:27:48 Acute depressi on 670858806 Completed zoloft 07/23 Emily chaney, [facility] 3 14:27:48 Low back pain 742834941 Completed flank pain, left side Emily chaney, [facility] 3 14:27:48 Pregnanc y 93903312 Completed 202101/05/2023 Emily chaney, [facility] 5 11:24:34 Anemia 690930287 Completed 2021 slowfe 1 tab daily Emily chaney, [facility] 3 14:27:48 Pregnanc y 29381945 Active 2024 Emily chaney, [facility] 5 11:24:34 Family history of leukemia 378485296 Active 2024 daughter dx age 2 Jammie Silvestre CNM [address], [place], [address], [facility] 5 15:14:20 History of hypothyr oidism 585457930 Active 2024 last pregnanc y, tsh wnl Jammie Silvestre CNM [address], [place], [address], [facility] 5 15:14:52 Polyhydr amnios 71753895 Active 2024 Anabela chaney, [facility] 5 13:05:53 Problem Notes None recorded. Procedures Surgical History Date Name Laterality Status Provider Name and Address Organization Details Recorded Time 10/17/19 25 Date of Last Pap Smear completed Emily Rivas [facility] 10/17/2024 15:55:13 10/17/19 21 Nexplanon Removal completed Jammie Silvestre, HARSHAL [address], [place], [address], [place] [facility] 10/17/2020 14:29:39 10/03/19 13 extraction of wisdom tooth completed Emily Rivas [facility] 10/01/2022 11:01:55 Imaging Results None recorded. [...] and Address Organization Details Last Updated DateTime 04/16/2025 160.02 cm 33.7 kg/m2 41761.55 g 104/62 mm[Hg] ANITA Juan [facility] 04/16/2025 15:59:31 Date Recorded Body height Body mass index (BMI) Body weight Systolic And Diastolic Provider Name and Address Organization Details Last Updated DateTime 04/17/2025 160.02 cm 33.7 kg/m2 49936.55 g 104/68 mm[Hg] Mandie Guzman [facility] 04/17/2025 12:03:04 Date Recorded Body height Body mass index (BMI) Body weight Systolic And Diastolic Provider Name and Address Organization Details Last Updated DateTime 04/23/2025 160.02 cm 34.5 kg/m2 28799.51 g 98/61 mm[Hg] Iza Chase [facility] 04/23/2025 17:23:27 Social History Question Answer Notes LastModified by Organizat ion Details LastModified Time Tobacco Smoking Status Never Smoker María Galvin null, [facility] 05/05/2022 14:01:05 If You Are , What Was Your Level Of Alcohol Consumption Prior To ? Occasional [email or web address] Information not available 05/05/2022 Are You Blind Or Do You Have Difficulty Seeing? No Information n ot available 02/08/2022 What Is Your Level Of Caffeine Consumption? Moderate [email or web address] Information not available 10/17/2020 In The 14 Days Before Symptom Onset, Have You Had Close Contact With A Laboratory-confirm ed COVID-19 While That Case Was Ill? No Information n ot available 11/05/2022 In The 14 Days Before Symptom Onset, Have You Had Close Contact With A Person Who Is Under Investigation For COVID-19 While That Person Was Ill? No [email or web address] Information not available 11/05/2022 Have You Been To An Area Known To Be High Risk For COVID-19? No [email or web address] Information not available 11/05/2022 Are You Deaf Or Do You Have Serious Difficulty Hearing? No Information not available 02/08/2022 What Type Of Diet Are You Following? REGULAR Information n ot available 02/08/2022 Have You Ever Been Counseled For Unhealthy Alcohol Use? No [email or web address] Information not available 05/05/2022 Do You Use Your Seat Belt Or Car Seat Routinely? Yes [email or web address] Information not available 11/05/2022 Do You Have Smoke And Carbon Monoxide Detectors In Your Home? Yes Information not available 11/05/2022 Do You Use Sunscreen Routinely? Yes [email or web address] Information not available 11/05/2022 Has Tobacco Cessation Counseling Been Provided? No [email or web address] Information not available 05/05/2022 Do You Have Difficulty Walking Or Climbing Stairs? No [email or web address] Information not available 05/05/2022 Sex: Unknown Functional Status Question Answer Note LastModified by Organizat ion Details LastModified Time Do you use any illicit or recreational drugs? No [email or web address] Information not available 10/17/2020 Do you or have you ever used any other forms of tobacco or nicotine? No [email or web address] Information not available 05/05/2022 What is your level of alcohol consumption? None [email or web address] Information not available 10/17/2024 Are you able to walk? YESWOREST Information not available 02/08/2022 Are you able to care for yourself? Yes [email or web address] Information n ot available 05/05/2022 Do you have difficulty dressing or bathing? No [email or web address] Information not available 05/05/2022 What is your exercise level? Moderate [email or web address] Information not available 10/17/2020 Mental Status Question Answer Note LastModified by Organization D etails LastModified Time Do you feel stressed (tense, restless, nervous, or anxious, or unable to sleep at night)? [id number] Information not available 11/05/2022 Family History Relationship Description Onset Age of this Age Resolved Age Notes LastModified by Organization Details LastModified Time Mother Asthma [email or web address] Not available 05/05/2022 14:53:55 Mother Hypertensive disorder [email or web address] Not available 05/05 14:53:55 Sister Asthma [email or web address] Not available 05/05/2022 14:53:55 Sister Hypertensive disorder [email or web address] Not available 05/05 14:53:55 Father Heart disease [email or web address] Not available 05/05 14:53:55 Father Diabetes mellitus [email or web address] Not available 05/05 14:53:56 Father Malignant tumor of kidney [email or web address] Not available 2024 14:58:05 Maternal Grandfather Seizure disorder Not available 2024 14:58:05 Medical History Condition [...] SNOMED-CT Code Diagnosis ICD10 Code Diagnosis Note [id number] Jammie Silvestre CNM [facility] [address] [address] 10/17/2020 13:50:46 10/17/2020 14:35:30 Gynecologic examination 88797290 Z01.419 [facility] management 478177368 Z30.9 [id number] HILLARY Ruffin [facility] [address] [address] 02/08/2022 12:08:42 02/08/2022 14:09:54 Gynecologic examination 82840777 Z01.419 Take Calcium with Vitamin D 1200mg [...] denies hx of DVT/PE, liver disease, cancer, stroke/DC, or migraine with aura. Risk and benefits discussed and accepted by patient.RT C for pelvic u/s and f/u appointmen t. Time spent with the patient was over 30 minutes Contracept ion care management 926755844 Z30.9 Dyspareunia 00911125 N94 .10 Screening procedure 2012 5006 Z13.9 [id number] Hernán Milian MD [facility] [address],[place] [address] 05/05/2022 13:59:00 05/05/2022 14:27:02 [id number] [facility] [address],[place] [address] 05/05/2022 14:01:34 05/05/2022 15:33:03 test positive 171214328 Z32.01 Amenorrhea 88502215 N91. 2 [id number] Hernán Milian MD [facility] [address],[place] [address] 05/27/2022 09:27:17 05/27/2022 10:17:38 Routine care 515408817 Z34.90 [id number] MD Amy Perez [address],[place] [address] 05/27/2022 09:28:23 05/27/2022 11:11:32 Routine care 070319278 Z34.90 [id number] Hernán Milian MD [facility] [address],[place] [address] 06/21/2022 13:49:24 06/21/2022 14:42:51 Routine care 533363723 Z34.90 [id number] [facility] [address],[place] [address] 07/23/2022 11:25:10 07/23/2022 14:23:00 Routine care 218480107 Z34.92 [facility] 07589556 E03.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 Nausea and vomiting 1693 1999 R11.2 [id number] MD Amy Perez [address],[place] [address] 07/23/2022 11:24:28 07/23/2022 14:28:01 screening 781202009 Z36.3 [id number] MD Amy Perez [address],[place] [address] 08/16/2022 14:19:33 08/16/2022 15:45:06 screening 964283242 Z36.2 [id number] Hernán Milian MD [facility] [address],[place] [address] 08/16/2022 14:19:58 08/16/2022 16:45:29 Hypothyroidism 29210941 E03.9 Routine an tenatal care 741880902 Z34.90 [id number] Hernán Milian MD [facility] [address],[place] [address] 09/06/2022 16:43:12 09/06/2022 17:37:56 Urinary symptoms 868944610 R39.9 Left flank pain 67282846 9 R10.9 [id number] [facility] [address],[place] [address] 09/17/2022 13:50:43 09/17/2022 14:57:54 Routine care 908094118 Z34.92 [id number] Jammie Silvestre [facility] [address],[place] [address] 10/01/2022 10:26:16 10/01/2022 12:58:29 Routine care 156264611 Z34.92 [id number] Mandie Felix [facility] [address],[place] [address] 10/18/2022 15:47:49 10/19/2022 17:12:33 Routine care 499942209 Z34.93 Hypothyroi dism in 394995698 E03.9 [id number] [facility] [address],[place] [address] 11/05/2022 12:44:40 11/05/2022 13:24:46 Routine care 921545994 Z34.92 [id number] Hernán Milian MD [facility] [address],[place] [address] 11/17/2022 10:59:55 11/17/2022 11:59:40 Uterine size for dates discrepancy 181439493 O26.843 Z3A.36 [id number] Jammie Silvestre [facility] [address],[place] [address] 11/17/2022 11:00:24 11/17/2022 12:25:13 Routine care 566543864 Z34.92 [id number] Jammie Silvestre [facility] [address],[place] [address] 11/24/2022 09:28:15 11/24/2022 10:11:58 Routine care 728140236 Z34.92 [id number] [facility] [address],[place] [address] 12/01/2022 12:36:47 12/01/2022 13:04:55 Routine care 639013358 Z34.92 [id number] Jammie Silvestre [place] [address] [place] [address] 01/05/2023 14:30:37 01/05/2023 14:59:29 care 248890292 Z39.2 may have generic pop if too expensive, f/u 6 mo wwe [id number] Hernán Milian MD [facility] [address],[place] [address] 10/17/2024 14:57:42 10/17/2024 15:30:30 [id number] [facility] [address] [place] [address] 10/17/2024 14:58:14 10/17/2024 16:35:14 Amenorrhea 89865103 N91.2 Gynecologi c examination 70714063 Z01.419 Nausea and vomiting 1693 2000 R11.2 [id number] Hernán Milian MD [facility] [address] [place] [address] 11/14/2024 10:16:37 11/14/2024 11:06:49 screening 615720659 Z36.82 Z3A.12 [id number] [facility] [address],[place] [address] 11/14/2024 10:21:24 11/14/2024 12:29:18 Routine care 498023211 Z34.92 [id number] Hernán Milian MD [facility] [address],[place] [address] 12/03/2024 13:33:55 12/03/2024 14:02:29 Spotting per vagina in 164914838 O26.852 Z3A.14 [id number] Henrán Milian MD [facility] [address],[place] [address] 12/12/2024 10:24:07 12/12/2024 11:04:15 Spotting per vagina in 966817532 O26.852 Z3A.16 [id number] [facility] [address],[place] [address] 12/12/2024 10:24:25 12/12/2024 14:08:13 Gestation period, 16 weeks 98062496 Z3A.16 [id number] Hernán Milian MD [facility] [address],[place] [address] 01/09/2025 10:51:03 01/09/2025 12:30:58 screening for malformation 762516126 Z36.3 Z3A.20 [id number] [facility] [address],[place] [address] 01/09/2025 10:51:16 01/09/2025 13:36:14 Gestation period, 20 weeks 91284803 Z3A.20 [id number] Hernán Milian MD [facility] [address],[place] [address] 02/06/2025 14:00:07 02/06/2025 15:01:15 Single umbilical artery 833865117 O09.899 Z3A.24 [id number] [facility] [address],[place] [address] 02/06/2025 14:00:52 02/06/2025 15:15:24 Gestation period, 24 weeks 631720914 Z3A.24 [id number] Hernán Milian MD [facility] [address],[place] [address] 03/06/2025 11:46:29 03/06/2025 13:28:01 Single umbilical artery 689371111 O09.899 O34.00 Q51.3 Z3A.28 [id number] Jammie Silvestre [facility] [address],[place] [address] 03/06/2025 11:46:41 03/06/2025 15:11:11 Gestation period, 28 weeks 35611925 Z3A.28 [id number] [facility] [address],[place] [address] 03/22/2025 14:15:15 03/22/2025 15:18:18 Gestation period, 30 weeks 34160919 Z3A.30 [id number] Hernán Milian MD [facility] [address],[place] [address] 04/10/2025 14:53:21 04/10/2025 15:32:27 Single umbilical artery 282291884 O09.899 Z87.718 O40.3XX0 Z3A.33 770019 [facility] [address],[place] [address] 04/10/2025 14:53:46 04/10/2025 16:09:24 Gestation period, 33 weeks 29967804 Z3A.33 [id number] [facility] [address],[place] [address] 04/10/2025 17:33:48 04/10/2025 17:49:24 Amniotic fluid volume below reference range 1928157117 O41.00X0 [id number] Hernán Milian MD [facility] [address],[place] [address] 04/16/2025 14:27:16 04/16/2025 15:12:56 Polyhydramnios 98720937 O40.3XX0 O35.9XX0 Z3A.34 [id number] Jammie Silvestre [facility] [address],[place] [address] 04/16/2025 14:27:37 04/16/2025 16:05:32 Oligohydramnios 62632082 O41.03X0 [id number] Jammie Silvestre [facility] [address],[place] [address] 04/17/2025 11:56:13 04/17/2025 12:14:52 Gestation period, 34 weeks 23457617 Z3A.34 [id number] Hernán Milian MD [facility] [address],[place] [address] 04/23/2025 14:04:37 04/23/2025 14:39:53 Suspected disorder 494073963 O35.9XX0 O40.3XX0 Z3A.35 [id number] FISH PANIAGUA MD [facility] [address],[place] [address] 04/23/2025 14:04:55 04/23/2025 17:28:31 Polyhydramnios 07746222 O40.9XX0 Health Concerns Section Related Observation LastModified by Organization Detai ls LastModified Time None Recorded Concern Status LastModified by Organization Details LastModified Time None Recorded Advance Directives Directive None Recorded Payers Insurance Date Sequence Insurance Name Policy Number Policy Tomas Covered Member ID Tomas Member ID Guarantor Name 04/17/2025 1 [facility] [employer] ( - PPO) Romelia Pozo [id number] Romelia Pozo 04/17/2025 1 EAST - HUMAN () Romelia Bazzi [id number] Romelia Pozo 04/17/2025 1 [facility] - [place] ( - PPO) Romelia Stark Nohelia [id number] Romelia Stark Nohelia 04/17/2025 1 FOR LIFE ( - MEDICARE SUPPLEMENT ) Romelia Stark Rose Mary [id number] Romelia Stark Nohelia OBGyn Episode Ob Episode Information Episode Created Date Number of Fetuses Patient Bloodtype Patient rh Status Prepregnancy Weight lbs Domestic Partner Domestic Partner Phone Father Name Toll Collector Status 10/17/19 21 1 CLOSED Fetus Data [...] Domestic Partner Domestic Partner Phone Father Name Toll Collector Status 05/27/20 22 1 A Positive 208 CLOSED Fetus Data First Name Last Name Admitted to NICU Weight (g) Sex Living Outcome Pediatric Complications Fetus ID Race Codes Race Delivery Type 3458.63 9 M Full Term 03747 Vaginal Delivery Problems Problem Notes WANTS TO BANK BABY'S CORD BLOOD!! Problem Name Start Date End Date Resolution Snomed Code Not e Low back pain 962971132 flank pain, left side Acute depression 730931064 zol oft 07/23 Transient hypertension of - delivered 915479313 late in 3rd ttrimester delivered at 38 weeks Lesion of vulva 909861502 subc utaneous vulvar nodule 1 cm, mobile, smooth, feels benign. To observe. Family history of leukemia 867857674 daughter - Dx a t 3 y/o Anemia 09/20/2022 MEDICATION 579486619 slowfe 1 tab daily Hypothyroidism MEDICATION 98287773 in p regnancy; 07/26 inc to 50mcg [...] Gestation 0 [email or web address] 05/27/2022 12/15/19 23 0 Pre- Flowsheet Flowsheet Date 05/27/2022 Loya Score Blood Edema Fundus Height Fundus Units Glucose Ketones Leukocytes Nitrite Labor Signs Protein Cervic Dilation Cervic Effacement Cervic Station 11 Type Weight in lbs Pre/Post Dialysis Refused Weight 207.212561162081 BP Diastolic BP Location Tested BP Systolic [...] Weight in lbs Pre/Post Dialysis Refused Weight 208.353357315419 BP Diastolic BP Location Tested BP Systolic [...] Weight in lbs Pre/Post Dialysis Refused Weight 204.060217248116 BP Diastolic BP Location Tested BP Systolic [...] Weight in lbs Pre/Post Dialysis Refused Weight 204.435238120548 BP Diastolic BP Location Tested BP Systolic [...] Weight in lbs Pre/Post Dialysis Refused Weight 205.549503602234 BP Diastolic BP Location Tested BP Systolic [...] Weight in lbs Pre/Post Dialysis Refused Weight 202.707286108677 BP Diastolic BP Location Tested BP Systolic [...] Weight in lbs Pre/Post Dialysis Refused Weight 205.156729674290 BP Diastolic BP Location Tested BP Systolic [...] Weight in lbs Pre/Post Dialysis Refused Weight 207.120853200205 BP Diastolic BP Location Tested BP Systolic [...] Weight in lbs Pre/Post Dialysis Refused Weight 207.523371687440 BP Diastolic BP Location Tested BP Systolic [...] Weight in lbs Pre/Post Dialysis Refused Weight 205.532639070566 BP Diastolic BP Location Tested BP Systolic [...] Weight in lbs Pre/Post Dialysis Refused Weight 205.880412309668 BP Diastolic BP Location Tested BP Systolic [...] Weight in lbs Pre/Post Dialysis Refused Weight 206.569754990917 BP Diastolic BP Location Tested BP Systolic [...] Estim ated Date of Delivery false Thalassemia (Zimbabwean, Chilean, Mediterranean, Or Background): MCV < 80 false Neural Tube Defect (Meningomyelocele, Spina Bifi da, Or Anencephaly) false Congenital Heart Defect false Down Syndrome false Hema-Sachs (eg, Hoahaoism, Cajun, Italian-[place]) f alse Phuc Disease false Sickle Cell Disease Or Trait () false Hemophilia Or Other Blood Disorders false Muscular Dystrophy false Cystic Fibrosis false Dewitt's Chorea false Intellectual Disability/Autism false If Yes, [...] Post Complications Tubal Sterilization Discharge Date Comments [facility] idural 39 false Nirmala Jammie CNM SROM, Anemia & GHTN Discharge Information Feeding Method Contraceptive Method Maternal HG B and HCT Levels Ob Episode Information Episode Created Date Number of Fetuses Patient Bloodtype Patient rh Status Prepregnancy Weight lbs Domestic Partner Domestic Partner Phone Father Name Toll Collector Status 11/14/19 25 1 A Positive 185 Ty Grapper ha OPEN Fetus Data First Name Last Name Admitted to NICU Weight (g) Sex Living Outcome Pediatric Complications Fetus ID Race Codes Race Delivery Type [id number] Problems Problem Notes possible GHTN end of last pr [email or web address] Vessel cord- schedule q 4 week US, testingfundus has bicornuate appearanceSoft tissue mass Problem Name Start Date End Date Resolution Snomed Code Not e Family history of leukemia 02/06/2025 529814288 daughter dx age 2 Polyhydramnios 04/12/2025 07543468 History of hypothyroidism 02/06/2025 604814312 last pregnanc y, tsh wnl [place] Calculation [...] Weight in lbs Pre/Post Dialysis Refused Weight 181.199851858644 BP Diastolic BP Location Tested BP Systolic [...] Weight in lbs Pre/Post Dialysis Refused Weight 183.468313627801 BP Diastolic BP Location Tested BP Systolic [...] Type Weight in lbs Pre/Post Dialysis Refused 183.517992389651 BP Diastolic BP Location Tested BP Systolic BP Type 62 95 Fetus Heart Rate Present Fetus Movement A Yes Comments 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, 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 wnl, mob ile debris, did [...] Weight in lbs Pre/Post Dialysis Refused Weight 183.267526566592 BP Diastolic BP Location Tested BP Systolic [...] Type Weight in lbs Pre/Post Dialysis Refused 186.788376507750 BP Diastolic BP Location Tested BP Systolic [...] Weight in lbs Pre/Post Dialysis Refused Weight [id number] BP Diastolic BP Location Tested BP Systolic [...] Type Weight in lbs Pre/Post Dialysis Refused [id number] BP Diastolic BP Location Tested BP Systolic [...] Weight in lbs Pre/Post Dialysis Refused Weight 190.612328777020 BP Diastolic BP Location Tested BP Systolic BP Type 62 L arm 104 sitting Fetus Heart Rate Present Fetus Movement Comments Flowsheet Date 04/17/2025 Loya Score Blood Edema Fundus Height Fundus Units Glucose Ketones Leukocytes Nitrite Labor Signs Protein Cervic Dilation Cervic Effacement Cervic Station Type Weight in lbs Pre/Post Dialysis Refused Weight [id number] BP Diastolic BP Location Tested BP Systolic [...] Weight in lbs Pre/Post Dialysis Refused Weight 195.094699099633 BP Diastolic BP Location Tested BP Systolic [...]
--- OUTSIDE RECORDS SUMMARY | 2025-04-23 20:32 | XMS_ITS | Continuity of Care Document ---
Author Organization [facility] Address [address] [place] [address] Assessment No assessment recorded. Plan of Treatment [...] available OB ROUTINE 2024 01:30P M Jammie HairgleHARSHAL Not available Not available Not available U/S OB BPP 2024 01:30P M ULTRASOUND Not available Not available Not available NST 2024 02:00P M NST SCHEDULE Not available Not available Not available Lab None recorde d. Referral None recorde d. Procedures None recorde d. Surgeries None recorde d. Imaging non-str ess test 2024 025 [email or web address] [place] [facility] [address], [place], [address], 04/23/2025 17:28:31 Medication Orders None recorde d. Patient TargetsNo targets recorded. Patient InstructionsNo instructions recorded. Reason for Referral None Reported. Results Created Date Observation Date Name Description Value Unit Range Abnormal Flag Note LastModifiedBy Organization Detail LastModifiedTime 11/21/19 25 11/21/2024 [UNIT Y] ANEUP LOIDY NIPT fraction 5.1% normal Not Available [email or web address], [place], [address], 11/21/2024 01:56:12 11/21/19 25 11/21/2024 [UNIT Y] ANEUP LOIDY NIPT 22Q11.2 microdeletio n LOW RISK <1 in 10,000 normal Not Available [facility] [address] [place], [address], 11/21/2024 01:56:12 11/21/19 25 11/21/2024 [UNIT Y] ANEUP LOIDY NIPT sex chromosome aneuploidy NOT DETECT ED normal Not Available [facility] [address] [place], [address], 11/21/2024 01:56:12 11/21/19 25 11/21/2024 [UNIT Y] ANEUP LOIDY NIPT monosomy X LOW RISK <1 in 10,000 normal Not Available [facility] [address] [place], [address], 11/21/2024 01:56:12 11/21/19 25 11/21/2024 [UNIT Y] ANEUP LOIDY NIPT trisomy 13 LOW RISK <1 in 10,000 normal Not Available [facility] [address] [facility], [place], [address], 11/21/2024 01:56:12 11/21/19 25 11/21/2024 [UNIT Y] ANEUP LOIDY NIPT trisomy 18 LOW RISK <1 in 10,000 normal Not Available [facility] [address] [facility], [place], [address], 11/21/2024 01:56:12 11/21/19 25 11/21/2024 [UNIT Y] ANEUP LOIDY NIPT trisomy 21 LOW RISK <1 in 10,000 normal Not Available [facility] [address] [facility], [place], [address], 11/21/2024 01:56:12 11/21/19 25 11/21/2024 [UNIT Y] ANEUP LOIDY NIPT sex FEMALE normal Not Available [facility] [address] [facility], [place], [address], 11/21/2024 01:56:12 11/21/19 25 11/21/2024 [UNIT Y] ANEUP LOIDY NIPT gestation SINGLE TON normal Not Available [facility] [address] [facility], [place], [address], 11/21/2024 01:56:12 11/21/19 25 11/21/2024 [UNIT Y] ANEUP LOIDY NIPT for detailed report, see pdf See PDF normal Not Available [facility] [address] [facility], [place], [address], 11/21/2024 01:56:12 11/26/19 25 11/26/2024 [UNIT Y] SERA ER YASMEENE N sickle cell disease/beta -thalassemia /hemoglobino pathies carrier screen NEGATI VE normal Not Available [facility] [address], [place], [address], 11/26/2024 19:09:25 11/26/19 25 11/26/2024 [UNIT Y] SERA Perez alpha-thalas semia carrier screen NEGATI VE normal Not Available [facility] [address], [place], [address], 11/26/2024 19:09:25 11/26/19 25 11/26/2024 [UNIT Y] SERA Perez cystic fibrosis carrier screen NEGATI VE normal Not Available [facility] [address], [place], [address], 11/26/2024 19:09:25 11/26/19 25 11/26/2024 [UNIT Y] SERA Perez spinal muscular atrophy carrier screen NEGATI VE 2 SMN1 copies , SNP not presen t normal Not Available [facility] [address], [place], [address], 11/26/2024 19:09:25 11/26/19 25 11/26/2024 [UNIT Y] SERA Perez for detailed report, see pdf See PDF normal Not Available [facility] [address], [place], [address], 11/26/2024 19:09:25 11/14/19 25 11/14/2024 CBC W/DIF F WBC 7.5 10'3/ uL 3.5-10 .5 Not Available [facility] (Lab) [address], [place], [address], 11/16/2024 01:44:27 11/14/1911/14/2024 CBC W/DIF F RBC 4.24 10'6/ uL (based on docume nted legal sex) 3.80-5 .20 Not Available [facility] (Lab) [address], [place], [address], 11/16/2024 01:44:27 11/14/19 25 11/14/2024 CBC W/DIF F HGB 12.3 g/dL (based on docume nted legal sex) 11.6-1 5.4 Not Available [facility] (Lab) [address], [place], [address], 11/16/2024 01:44:27 11/14/19 25 11/14/2024 CBC W/DIF F HCT 37.0 % (based on docume nted legal sex) 34.0-4 5.0 Not Available [facility] (Lab) [address], [place], [address], 11/16/2024 01:44:27 11/14/19 25 11/14/2024 CBC W/DIF F MCV 87.3 fL 80.0-9 9.0 Not Available [facility] (Lab) [address], [place], [address], 11/16/2024 01:44:27 11/14/19 25 11/14/2024 CBC W/DIF F MCH 29.0 pg 27.0-3 4.0 Not Available [facility] (Lab) [address], [place], [address], 11/16/2024 01:44:27 11/14/19 25 11/14/2024 CBC W/DIF F MCHC 33.2 g/dL 32.0-3 5.5 Not Available [facility] (Lab) [address], [place], [address], 11/16/2024 01:44:27 11/14/19 25 11/14/2024 CBC W/DIF F RDW 12.9 % 11.0-1 5.0 Not Available [facility] (Lab) [address], [place], [address], 11/16/2024 01:44:27 11/14/19 25 11/14/2024 CBC W/DIF F plt 356 10'3/ uL 150-40 0 Not Available [facility] (Lab) [address], [place], [address], 11/16/2024 01:44:27 11/14/19 25 11/14/2024 CBC W/DIF F MPV 10.6 fL 8.8-12 .1 Not Available [facility] (Lab) [address], [place], [address], 11/16/2024 01:44:27 11/14/19 25 11/14/2024 CBC W/DIF F neutrophils 65.2 % 34.0-7 3.0 Not Available [facility] (Lab) [address], [place], [address], 11/16/2024 01:44:27 11/14/19 25 11/14/2024 CBC W/DIF F lymphocytes 24.7 % 15.0-5 0.0 Not Available [facility] (Lab) [address], [place], [address], 11/16/2024 01:44:27 11/14/19 25 11/14/2024 CBC W/DIF F monocytes 8.0 % 1.0-15 .0 Not Available [facility] (Lab) [address], [place], [address], 11/16/2024 01:44:27 11/14/19 25 11/14/2024 CBC W/DIF F eosinophils 0.9 % 0.0-8. 0 Not Available [facility] (Lab) [address], [place], [address], 11/16/2024 01:44:27 11/14/19 25 11/14/2024 CBC W/DIF F basophils 0.7 % 0.0-2. 0 Not Available [facility] (Lab) [address] [place], [address], 11/16/2024 01:44:27 11/14/19 25 11/14/2024 CBC W/DIF [...] separ ately if prese nt. Not Available [facility] (Lab) [address], [place], [address], 11/16/2024 01:44:27 11/14/19 25 11/14/2024 CBC W/DIF F absolute neutrophils 4.9 10'3/ uL 1.5-8. 0 Not Available [facility] (Lab) [address], [place], [address], 11/16/2024 01:44:27 11/14/19 25 11/14/2024 CBC W/DIF F absolute lymphocytes 1.9 10'3/ uL 1.0-4. 0 Not Available [facility] (Lab) [address], [place], [address], 11/16/2024 01:44:27 11/14/19 25 11/14/2024 CBC W/DIF F absolute monocytes 0.6 10'3/ uL 0.2-1. 0 Not Available [facility] (Lab) [address], [place], [address], 11/16/2024 01:44:27 11/14/19 25 11/14/2024 CBC W/DIF F absolute eosinophils 0.1 10'3/ uL 0.0-0. 6 Not Available [facility] (Lab) [address], [place], [address], 11/16/2024 01:44:27 11/14/19 25 11/14/2024 CBC W/DIF F absolute basophils 0.1 10'3/ uL 0.0-0. 3 Not Available [facility] (Lab) [address] [place], [address], 11/16/2024 01:44:27 11/14/19 25 11/14/2024 CBC W/DIF F absolute immature granulocytes 0.0 10'3/ uL 0.00-0 .10 Refer ence range s for nonbi nary/ inter sex or unspe cifie d gende r patie nts have not been estab lishe d. Pleas e refer to the [facility] table for range s estab lishe d for cisge nder patie nts and evalu ate in the clini mumtaz charlie xt of the indiv idual patie nt: https ://la bhand book. nm.or g/Gen derX Not Available [facility] (Lab) [address], [place], [address], 11/16/2024 01:44:27 11/14/1911/14/2024 HEPAT ITIS C ANTIB NIMISHA SCREE N, REFLE X TO CONFI RMATI ON hepatitis C antibody Non-re active non-re active Antib odies to HCV Not Detec etta, does not exclu de the possi bilit y of expos ure to HCV. Not Available [facility] (Lab) [address], [place], [address], 11/16/2024 01:44:28 11/14/1911/14/2024 HIV 1/2 ANTIG EN/AN TIBOD Y, REFLE X CONFI RMATI ON HIV antigen/anti body Nonrea ctive nonrea ctive HIV-1 antig en and HIV-1 /HIV- 2 antib odies were not detec etta. No labor atory evide nce of HIV infec tion. Not Available [facility] (Lab) [address], [place], [address], 11/16/2024 01:44:28 11/14/1911/14/2024 HEPAT ITIS B SURFA CE ANTIG EN hepatitis B surface antigen Non-re active non-re active This assay was perfo rmed using [employer] ratio n reage nts and test kits. Value s obtai luiza with other assay metho ds or kits canno t be used inter alvarez eably . Not Available [facility] (Lab) [address], [place], [address], 11/16/2024 01:44:28 11/14/19 25 11/14/2024 TSH, REFLE X FREE T4 TSH 2.25 uIU/m L 0.30-5 .33 Not Available [facility] (Lab) [address], [place], [address], 11/16/2024 01:44:29 11/14/19 25 11/14/2024 RUBEL LA IGG ANTIB NIMISHA, QUANT rubella antibodies, IgG Reacti ve reacti ve Not Available [facility] (Lab) [address], [place], [address], 11/16/2024 01:44:29 11/14/19 25 11/14/2024 RUBEL LA IGG ANTIB NIMISHA, QUANT rubella antibodies, IgG quant 88.9 IU/mL >=10 Non-r eacti ve (Non- Immun e) <10 IU/mL React mendy (Immu ne) > or = 10 IU/mL Not Available [facility] (Lab) [address], [place], [address], 11/16/2024 01:44:29 11/14/19 25 11/14/2024 TYPE/ RH/SC REEN ABO/Rh type A POS Not Available [facility] (Lab) [address], [place], [address], 11/16/2024 01:44:29 11/14/19 25 11/14/2024 TYPE/ RH/SC REEN antibody screen NEG Not Available [facility] (Lab) [address], [place], [address], 11/16/2024 01:44:29 11/14/19 25 11/14/2024 TYPE/ RH/SC REEN exp date 2024 23:59 Not Available [facility] (Lab) [address], [place], [address], 11/16/2024 01:44:29 11/14/19 25 11/14/2024 HEMOG LOBIN A1C hemoglobin A1C 4.6 % 4.0-5. 6 The Ameri can [employer] mar[facility] [employer] i[employer] n recom mends that a prima ry goal of thera py shoul d be a HBA1C of < 7% and that physi cians shoul d reeva luate the treat ment regim en in patie nts with HBA1C value s consi stent ly > 8%. <5.7% Josselyn l 5.7 - 6.4% Incre ased risk for diabe marimar >=6.5 % Diagn ostic of diabe marimar <7.0% Goal of thera py >8.0% Actio n sugge sted Not Available [facility] (Lab) [address] , [place], [address], 11/16/2024 01:44:29 11/14/19 25 11/14/2024 RPR SCREE N, REFLE X TITER /CONF IRMAT ION RPR screen Nonrea ctive nonrea ctive Not Available [facility] (Lab) [address] , [place], [address], 11/16/2024 01:44:30 11/14/19 25 11/14/2024 CULTU RE: URINE result report SEE RESULT S BELOW Test: Cultu re: Urine Speci men Sourc e: Urine - Clean Catch Speci men Type: Urine Speci men Date: 2024 1430 Resul t Date: 2024 0006 Resul t Statu s: Final resul t Abnor mal: No Resul ting Lab: [facility] [address] [facility] [address] Tel: CULTU RE ----- ----- ----- --- Organ ism(s ) consi stent with uroge nital or skin pradeep . Repea t cultu re if sympt oms indic ate. Not Available [facility] (Lab) [address] , [place], [address], 11/17/2024 01:10:10 03/06/20 25 03/06/2025 HEMAT OCRIT (HCT) HCT 31.5 % (based on docume nted legal sex) 34.0-4 5.0 low Not Available [facility] (Lab) [address], [place], [address], 03/07/2025 12:17:21 03/06/20 25 03/06/2025 HEMOG LOBIN (HGB) HGB 10.6 g/dL (based on docume nted legal sex) 11.6-1 5.4 low Not Available [facility] (Lab) [address], [place], [address], 03/07/2025 12:17:21 03/06/20 25 03/06/2025 GTT - GESTA ERIK L SCREE N, ACOG OB glucose, 1 hour screen 98 mg/dL 70-135 Not Available [facility] (Lab) [address], [place], [address], 03/07/2025 12:17:22 03/06/20 25 03/06/2025 HIV 1/2 ANTIG EN/AN TIBOD Y, REFLE X CONFI RMATI ON HIV antigen/anti body Nonrea ctive nonrea ctive HIV-1 antig en and HIV-1 /HIV- 2 antib odies were not detec etta. No labor atory evide nce of HIV infec tion. Not Available [facility] (Lab) [address], [place], [address], 03/07/2025 12:17:22 03/06/20 25 03/06/2025 RPR SCREE N, REFLE X TITER /CONF IRMAT ION RPR qualitative Nonrea ctive nonrea ctive Not Available [facility] (Lab) [address] [place], [address], 03/07/2025 12:17:22 11/14/19 25 11/14/2024 US, obste tric, nucha l trans lucen cy No observ ation record ed. [email or web address] [place] [address], [place], [address], 11/14/2024 12:49:58 11/14/19 25 11/14/2024 US, obste tric, 1st trime ster No observ ation record ed. [email or web address] [place] [address], [place], [address], 11/14/2024 12:50:09 11/14/19 25 11/14/2024 US, obste tric, follo w-up No observ ation record ed. [email or web address] [address], [place], [address], 11/20/2024 09:41:13 12/04/19 25 12/03/2024 US, obste tric, limit ed No observ ation record ed. [address], [place], [address], 12/03/2024 17:18:57 12/04/19 25 12/03/2024 US, obste tric, follo w-up No observ ation record ed. [address], [place], [address], 12/03/2024 22:27:27 12/13/19 25 12/12/2024 US, obste tric, limit ed No observ ation record ed. [email or web address] [place] [address], [place], [address], 12/12/2024 12:03:35 12/13/19 25 12/12/2024 US, obste tric, limit ed No observ ation record ed. [email or web address] [address], [place], [address], 12/12/2024 12:29:18 01/10/20 25 01/09/2025 US, obste tric, 2nd or 3rd trime ster No observ ation record ed. [email or web address] [place] [address], [place], [address], 01/09/2025 13:07:04 01/10/20 25 01/09/2025 US, obste tric, 2nd or 3rd trime ster No observ ation record ed. [address], [place], [address], 01/10/2025 17:34:20 01/10/20 25 01/09/2025 US, obste tric, 2nd or 3rd trime ster No observ ation record ed. [email or web address] [address], [place], [address], 01/10/2025 17:36:16 02/07/20 25 02/06/2025 US, obste tric, follo w-up No observ ation record ed. [email or web address] [place] [address], [place], [address], 02/06/2025 17:26:10 02/07/20 25 02/06/2025 US, obste tric, follo w-up No observ ation record ed. [email or web address] [address], [place], [address], 02/08/2025 16:14:36 03/06/20 25 03/06/2025 US, obste tric, follo w-up No observ ation record ed. [email or web address] [address], [place], [address], 03/11/2025 22:08:43 03/06/20 25 03/06/2025 US, obste tric, follo w-up No observ ation record ed. [facility] [address], [place], [address], 03/06/2025 17:39:54 07/09/20 25 04/10/2025 US, obste tric, follo w-up No observ ation record ed. [email or web address] [place] [address], [place], [address], 04/10/2025 18:15:24 04/10/20 25 04/10/2025 US, obste tric, bioph ysica l profi le No observ ation record ed. [email or web address] [place] [address], [place], [address], 04/10/2025 18:15:33 04/10/20 25 04/10/2025 US, obste tric, follo w-up No observ ation record ed. [address], [place], [address], 04/12/2025 16:10:46 04/10/20 25 04/10/2025 non-s tress test No observ ation record ed. [email or web address] [place] [address], [place], [address], 04/10/2025 17:48:22 04/16/20 25 04/16/2025 US, obste tric, bioph ysica l profi le + non-s tress test No observ ation record ed. [email or web address] [place] [address], [place], [address], 04/16/2025 17:32:59 04/16/20 25 04/16/2025 US, obste tric, bioph ysica l profi le + non-s tress test No observ ation record ed. [email or web address] [address], [place], [address], 04/17/2025 21:57:35 04/16/20 25 04/16/2025 non-s tress test No observ ation record ed. [email or web address] [place] [address], [place], [address], 04/17/2025 09:13:38 04/23/20 25 04/23/2025 imagi ng/di agnos tic resul t No observ ation record ed. [email or web address] [address], [place], [address], 04/23/2025 14:30:43 04/23/20 25 04/23/2025 US, obste tric, bioph ysica l profi le + non-s tress test No observ ation record ed. [email or web address] [place] [address], [place], [address], 04/23/2025 16:57:50 04/23/20 25 04/23/2025 non-s tress test No observ ation record ed. [email or web address] [place] [address], [place], [address], 04/23/2025 17:25:45 Result Notes None recorded. Problems Name Problem SNOMED Code Status Onset Date Resolution Date Notes Provider Name and Address Organization Details Recorded Time Transien t hyperten boris of pregnanc y - delivere d 678845665 Completed late in 3rd ttrimest er delivere d at 38 weeks Emily chaney [facility] 3 14:27:48 Lesion of vulva 507455351 Completed subcutan eous vulvar nodule 1 cm, mobile, smooth, feels benign. To observe. Emily chaney [facility] 3 14:27:48 Family history of leukemia 205887585 Completed daughter - Dx at 2 y/o Emily chaney [facility] 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 3 14:27:48 Acute depressi on 628940742 Completed zoloft 07/23 Emily chaney, [facility] 3 14:27:48 Low back pain 020875911 Completed flank pain, left side Emily chaney, [facility] 3 14:27:48 Pregnanc y 30494305 Completed 202101/05/2023 Emily chaney, [facility] 5 11:24:34 Anemia 239986111 Completed 2021 slowfe 1 tab daily Emily chaney, [facility] 3 14:27:48 Pregnanc y 88975021 Active 2024 Emily chaney, [facility] 5 11:24:34 Family history of leukemia 272016952 Active 2024 daughter dx age 2 Jammie Silvestre CNM [address], [place], [address], [facility] 5 15:14:20 History of hypothyr oidism 614687643 Active 2024 last pregnanc y, tsh wnl Jammie Silvestre CNM [address], [place], [address], [facility] 5 15:14:52 Polyhydr amnios 83788945 Active 2024 Anabela chaney, [facility] 5 13:05:53 Problem Notes None recorded. Procedures Surgical History Date Name Laterality Status Provider Name and Address Organization Details Recorded Time 10/17/19 Date of Last Pap Smear completed Emily Rivas [facility] 10/17/2024 15:55:13 10/17/19 21 Nexplanon Removal completed Jammie Silvestre, [facility] [address], [place], [address], [place] [facility] 10/17/2020 14:29:39 10/03/19 13 extraction of wisdom tooth completed Emily Rivas [facility] 10/01/2022 11:01:55 Imaging Results None recorded. [...] completed nexplano n inserted 8 and will Not Available Not Available Not Available Simpesse [...] Updated DateTime 04/23/2025 160.02 cm 34.5 kg/m2 57021.51 g 98/61 mm[Hg] Iza Stone [facility] 04/23/2025 17:23:27 Social History Question Answer Notes LastModified by Organizat ion Details LastModified Time Tobacco Smoking Status Never Smoker María chaney, [facility] 05/05/2022 14:01:05 If You Are , What Was Your Level Of Alcohol Consumption Prior To ? Occasional [email or web address] Information not available 05/05/2022 Are You Blind Or Do You Have Difficulty Seeing? No Information n ot available 02/08/2022 What Is Your Level Of Caffeine Consumption? Moderate [email or web address] Information not available 10/17/2020 In The 14 Days Before Symptom Onset, Have You Had Close Contact With A Laboratory-confirm ed COVID-19 While That Case Was Ill? No [email or web address] Information n ot available 11/05/2022 In The 14 Days Before Symptom Onset, Have You Had Close Contact With A Person Who Is Under Investigation For COVID-19 While That Person Was Ill? No [email or web address] Information not available 11/05/2022 Have You Been To An Area Known To Be High Risk For COVID-19? No Information not available 11/05/2022 Are You Deaf Or Do You Have Serious Difficulty Hearing? No Information not available 02/08/2022 What Type Of Diet Are You Following? REGULAR Information n ot available 02/08/2022 Have You Ever Been Counseled For Unhealthy Alcohol Use? No Information not available 05/05/2022 Do You Use Your Seat Belt Or Car Seat Routinely? Yes [email or web address] Information not available 11/05/2022 Do You Have Smoke And Carbon Monoxide Detectors In Your Home? Yes [email or web address] Information not available 11/05/2022 Do You Use Sunscreen Routinely? Yes [email or web address] Information not available 11/05/2022 Has Tobacco Cessation Counseling Been Provided? No [email or web address] Information not available 05/05/2022 Do You Have Difficulty Walking Or Climbing Stairs? No [email or web address] Information not available 05/05/2022 Sex: Unknown Functional Status Question Answer Note LastModified by Organizat ion Details LastModified Time Do you use any illicit or recreational drugs? No [email or web address] Information not available 10/17/2020 Do you or have you ever used any other forms of tobacco or nicotine? No [email or web address] Information not available 05/05/2022 What is your level of alcohol consumption? None Information not available 10/17/2024 Are you able to walk? [email or web address] Information not available 02/08/2022 Are you able to care for yourself? Yes [email or web address] Information n ot available 05/05/2022 Do you have difficulty dressing or bathing? No [email or web address] Information not available 05/05/2022 What is your exercise level? Moderate [email or web address] Information not available 10/17/2020 Mental Status Question Answer Note LastModified by Organization D etails LastModified Time Do you feel stressed (tense, restless, nervous, or anxious, or unable to sleep at night)? [id number] Information not available 11/05/2022 Family History Relationship Description Onset Age of this Age Resolved Age Notes LastModified by Organization Details LastModified Time Mother Asthma [email or web address] Not available 05/05/2022 14:53:55 Mother Hypertensive disorder [email or web address] Not available 05/05 14:53:55 Sister Asthma [email or web address] Not available 05/05/2022 14:53:55 Sister Hypertensive disorder [email or web address] Not available 05/05 14:53:55 Father Heart disease Not available 05/05 14:53:55 Father Diabetes mellitus [email or web address] Not available 05/05 14:53:56 Father Malignant tumor of kidney [email or web address] Not available 2024 14:58:05 Maternal Grandfather Seizure disorder Not available 2024 14:58:05 Medical History Condition Response Allergies (Food, seasonal, environmental ) N Other N Drug/Latex Allergies/Reactions N Breast Cancer N Blood Transfusion N Lung Disease N Dermatologic Disorders N Defects or Inherited Disease N Breast Problem N Gestational Diabetes N Hematologic disorders N Anesthesia Complications N History of STI N Deep Vein Thrombosis N Polycystic ovary syndrome N Anxiety Disorder Y Autoimmune disease N Arthritis N Polyps N Infertility N History of abnormal pap N Acid Reflux (GERD) N Cancer N Varicosities N Stroke N Neurologic/Epilepsy N Endometriosis N High Cholesterol N Headaches N Fibromyalgia N Kidney Disease N Heart Problems N [...] SNOMED-CT Code Diagnosis ICD10 Code Diagnosis Note [id number] Hernán Milian MD [place] [address],[place] [address] 04/10/2025 14:53:21 04/10/2025 15:32:27 Single umbilical artery [id number] O09.899 Z87.718 O40.3XX0 Z3A.33 [id number] [facility] [address] [place] [address] 04/10/2025 14:53:46 04/10/2025 16:09:24 Gestation period, 33 weeks [id number] Z3A.33 [id number] [facility] [address] [place] [address] 04/10/2025 17:33:48 04/10/2025 17:49:24 Amniotic fluid volume below reference range [id number] O41.00X0 [id number] Hernán Milian MD [place] [address],[place] [address] 04/16/2025 14:27:16 04/16/2025 15:12:56 Polyhydramnios [id number] O40.3XX0 O35.9XX0 Z3A.34 [id number] [facility] [address] [place] [address] 04/16/2025 14:27:37 04/16/2025 16:05:32 Oligohydramnios [id number] O41.03X0 [id number] Jammie Silvestre CNM [place] [address],[place] [address] 04/17/2025 11:56:13 04/17/2025 12:14:52 Gestation period, 34 weeks [id number] Z3A.34 [id number] Hernán Milian MD [place] [address],[place] [address] 04/23/2025 14:04:37 04/23/2025 14:39:53 Suspected disorder [id number] O35.9XX0 O40.3XX0 Z3A.35 [id number] FISH PANIAGUA MD [place] [address],[place] [address] 04/23/2025 14:04:55 04/23/2025 17:28:31 Polyhydramnios [id number] O40.9XX0 Health Concerns Section Related Observation LastModified by Organization Detai ls LastModified Time None Recorded Concern Status LastModified by Organization Details LastModified Time None Recorded Payers Encounter Date Sequence Insurance Name Policy Number Policy Tomas Covered Member ID Tomas Member ID Guarantor Name 04/23/2025 1 [employer] ( - PPO) Romelia Pozo [id number] Romelia Pozo OBGyn Episode Ob Episode Information Episode Created Date Number of Fetuses Patient Bloodtype Patient rh Status Prepregnancy Weight lbs Domestic Partner Domestic Partner Phone Father Name Data Architect Status 11/14/19 25 1 A Positive [address] [employer] haus OPEN Fetus Data First Name Last Name Admitted to NICU Weight (g) Sex Living Outcome Pediatric Complications Fetus ID Race Codes Race Delivery Type [id number] Problems Problem Notes possible GHTN end of last pr [id number] Vessel cord- schedule q 4 week US, testingfundus has bicornuate appearanceSoft tissue mass Problem Name Start Date End Date Resolution Snomed Code Not e Family history of leukemia 02/06/2025 [id number] daughter dx age 3 Polyhydramnios 04/12/2025 [id number] History of hypothyroidism 02/06/2025 [id number] last pregnanc y, tsh wnl [place] Calculation [...] Weight in lbs Pre/Post Dialysis Refused Weight 181.032184663020 BP Diastolic BP Location Tested BP Systolic [...] Weight in lbs Pre/Post Dialysis Refused Weight 183.226167639247 BP Diastolic BP Location Tested BP Systolic [...] Type Weight in lbs Pre/Post Dialysis Refused 183.901882449235 BP Diastolic BP Location Tested BP Systolic BP Type 62 95 Fetus Heart Rate Present Fetus Movement A Yes Comments top knitter bilateral, NIPT wnl, mob ile debris, did [...] Weight in lbs Pre/Post Dialysis Refused Weight 183.132235849858 BP Diastolic BP Location Tested BP Systolic [...] Type Weight in lbs Pre/Post Dialysis Refused 186.340109891217 BP Diastolic BP Location Tested BP Systolic [...] Weight in lbs Pre/Post Dialysis Refused Weight 189.662397113930 BP Diastolic BP Location Tested BP Systolic [...] Type Weight in lbs Pre/Post Dialysis Refused 189.951137524285 BP Diastolic BP Location Tested BP Systolic [...] Weight in lbs Pre/Post Dialysis Refused Weight 190.016161478369 BP Diastolic BP Location Tested BP Systolic BP Type 62 L arm 104 sitting Fetus Heart Rate Present Fetus Movement Comments Flowsheet Date 04/17/2025 Loya Score Blood Edema Fundus Height Fundus Units Glucose Ketones Leukocytes Nitrite Labor Signs Protein Cervic Dilation Cervic Effacement Cervic Station Type Weight in lbs Pre/Post Dialysis Refused Weight 190.455077763919 BP Diastolic BP Location Tested BP Systolic [...] Weight in lbs Pre/Post Dialysis Refused Weight 195.702107495185 BP Diastolic BP Location Tested BP Systolic [...]
--- OUTSIDE RECORDS SUMMARY | 2025-04-23 20:32 | XMS_ITS | Clinical Summary ---
Author Organization [facility] Address [facility] [place] [address] Care Team Providers Care Wedger Name Role Phone None, Provider MD Primary [...] of weight loss is through diet. 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 Gender Identity Not on file Sexual Orientation Not on file Occupation Industry Job Start Date Job End Date [employer] Not on file Not on file Not on file Last Filed Vital Signs Vital Sign Reading Time Taken Comments Blood Pressure 98/68 11/04/2023 12:49 PM ABNORMAL PSYCHOLOGY TEACHER Pulse 93 11/04/2023 12:49 PM ABNORMAL PSYCHOLOGY TEACHER Temperature 37.1 C (98.8 F) 11/04/2023 12:49 PM ABNORMAL PSYCHOLOGY TEACHER Respiratory Rate 16 11/04/2023 12:49 PM ABNORMAL PSYCHOLOGY TEACHER Oxygen Saturation 98% 11/04/2023 12:49 PM ABNORMAL PSYCHOLOGY TEACHER Inhaled Oxygen Concentration - - Weight 92.5 kg (204 lb) 11/04/2023 12:49 PM ABNORMAL PSYCHOLOGY TEACHER Height 160 cm (5' 3) 11/04/2023 12:49 PM ABNORMAL PSYCHOLOGY TEACHER Body Mass Index 36.14 11/04/2023 12:49 PM ABNORMAL PSYCHOLOGY TEACHER Plan of Treatment Health Maintenance Due Date Last Done Comments Hepatitis B Vaccines (1 of 3 - 19+ 3-dose series) 2015 Annual Physical 04/24/2022 04/24/2021 HPV Vaccines (1 - 3-dose SCD M series) 2023 COVID-19 Vaccine ( - 2023-2 5 season) 2024 01/14/2021, 12/17/2020 PHQ-2 (Physician [place]) 10/03/2024 11/04/2023 Cervical Cancer Screening Pa p Smear (Age 21 to 29) Every 3 Years 05/05/2025 05/05/2022 Cervical Cancer Screening 05/05/2025 DTaP, Tdap and Td Vaccines ( 2 - Td or Tdap) 04/19/2029 04/19/2019 Meningococcal Vaccine Aged Out 04/19/2019 No crystal soraya eligible based on patient's age to complete this topic Hepatitis C Completed 05/27/2022, 05/27/2022 Meningococcal B Vaccine Aged Out No l onger eligible based on patient's age to complete this topic Pneumococcal Vaccine: Pediatrics (0 to 5 Years) and At-Risk Patients (6 to 49 Years) Aged Out No longer eligible b ased on patient's age to complete this topic RSV Immunizations Under 20 Months Aged Out No longer eligible b ased on patient's age to complete this topic Insurance [address] [place] [id number] [place] [address] MEDICAL Care Teams Wedger Relationship Specialty Start Date End Date None, Provider, PCP - General UNKNOWN PHYSICIAN SPECIALTY 11/23/23
--- NOTE | 2025-04-23 20:42 | OBADM ---
This patient, Romelia Pozo, admitted to the OB room OB Post 115 for observation. Patient/family oriented to hospital policies and general routines including ID bracelet, bed and alarms, visiting hours, pain management, procedures, bathroom and other care routines, personal items, smoking policy, room service/diet, and visiting hours. Patient/Family are encouraged to report perceived risks to care and to ask questions if they do not understand what they are told or what they should do.
[2025-04-23] MEDS: ACETAMINOPHEN 500 MG TABLET 1000 MG PO (21:51)
--- NOTE | 2025-04-29 10:30 | PM.OBTRLD ---
OB - Triage/Final Diagnosis Visit Information Comments/Additional reasons for admission: I have assessed the risk for this patient, Romelia Pozo, and determined that she would benefit from observation care. Final Diagnosis (1) Status post fall: Code(s): Z91.81 - History of falling Status: Acute
== END 2025-04-23 23:20 | disposition home or self-care (01) ==
PROVIDERS: Admitting Provider Obstetrics & Gynecology; Referring Provider Advanced Practice Midwife; Visit Provider Obstetrics & Gynecology
DX: O9A.213 Injury, poisoning and certain other consequences of external causes complicating pregnancy, third trimester (principal); Z3A.35 35 weeks gestation of pregnancy; Z91.81 History of falling
CPT/HCPCS: 76819; A9270; G0378; G0379

== ENCOUNTER 2025-05-08 14:25 | Inpatient (IN) | payer OTHER, SELFPAY ==
[2025-05-08] VITALS (138 sets, daily range): BP systolic 75–134; BP diastolic 37–87; PULSE 46–162; RESP 18; TEMP 37.1–37.2; O2SAT 86–100; BMI 34.3
--- OUTSIDE RECORDS SUMMARY | 2025-05-08 14:39 | XMS_ITS | Clinical Summary ---
Author Organization 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 Gender Identity Not on file Sexual Orientation Not on file Occupation Industry Job Start Date Job End Date [employer] Not on file Not on file Not on file Last Filed Vital Signs Vital Sign Reading Time Taken Comments Blood Pressure 98/68 11/04/2023 12:49 PM TELEHEALTH DIRECTOR Pulse 93 11/04/2023 12:49 PM TELEHEALTH DIRECTOR Temperature 37.1 C (98.8 F) 11/04/2023 12:49 PM TELEHEALTH DIRECTOR Respiratory Rate 16 11/04/2023 12:49 PM TELEHEALTH DIRECTOR Oxygen Saturation 98% 11/04/2023 12:49 PM TELEHEALTH DIRECTOR Inhaled Oxygen Concentration - - Weight 92.5 kg (204 lb) 11/04/2023 12:49 PM TELEHEALTH DIRECTOR Height 160 cm (5' 3) 11/04/2023 12:49 PM TELEHEALTH DIRECTOR Body Mass Index 36.14 11/04/2023 12:49 PM TELEHEALTH DIRECTOR Plan of Treatment Health Maintenance Due Date Last Done Comments Hepatitis B Vaccines (1 of 3 - 19+ 3-dose series) 2015 Annual Physical 04/24/2022 04/24/2021 HPV Vaccines (1 - 3-dose SCD M series) 2023 COVID-19 Vaccine ( - 2023-2 5 season) 2024 01/14/2021, 12/17/2020 PHQ-2 (Physician [place]) 10/03/2024 11/04/2023 Cervical Cancer Screening Pa p [...] to complete this topic Insurance DR [place] [id number] [place] [address] MEDICAL Care Teams Staffing Recruiter Relationship Specialty Start Date End Date None, Provider, PCP - General UNKNOWN PHYSICIAN SPECIALTY 11/23/23
--- OUTSIDE RECORDS SUMMARY | 2025-05-08 14:39 | XMS_ITS | Continuity of Care Document ---
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, Pharmacy : [facility] IntraM uscula r (in a muscle ) Complet ed 12/05/20242024 1.0 8224R-1 26 MDG DuoDote 2.1 mg/0.7 mL-600 mg/2 mL intramuscul ar solution 2.7 mL, IntraMus cular, As Directed , Use only when directed to by command* * UAD on autoinje ctor, # 3 EA, 0 total refill(s ), Acute, Pharmacy : [facility] IntraM uscula r (in a [...] 0 total refill(s ), Acute, Pharmacy : [facility] Oral (given by mouth) Complet ed 12/03/20242024 14.0 8224R-1 26 MDG predniSONE 10 mg oral tablet predniSO NE 10 mg oral tablet Start Date: 07/15/21 Status: Ordered Repeat number: 1 Ordered 2021 No Facilit y Access pyRIDostigm ine 30 mg oral tablet 1 tab(s), Oral, every 8 hr, # 42 tab(s), 0 total refill(s ), Acute, Pharmacy : [facility] Oral (given by mouth) Complet ed 12/03/20242024 42.0 8224R-1 26 MDG Reactive Skin Decontamina tion Lotion See Instruct ions, As Directed , # 3 packet(s ), 0 total refill(s ), Acute, Supply, Pharmacy : [facility] Complet ed 12/03/20242024 3.0 8224R-1 26 MDG Allergies, Adverse Reactions, Alerts Combined list of allergies from Department of Defense and Veterans Affairs facilities. It does not include entries that were removed or entered in error. Substance Category Reaction Severity Reaction type Status Date Reported Comments Source No Known Allergies Drug allergy (disorder) active 04/26/2019 [place] [address] Immunizations Combined list of available immunizations from the Department of Defense and Veterans Affairs facilities. Immunization Series Date Given Administered By Site Reaction Lot Number CVX Code Drug Extractor Puller Status Comments Source influenza, injectable, quadrivalent- pf 2021 [id number] 150 GlaxoSmithKli ne complet ed influenza , injectabl e, quadrival ent-pf 12/05/21 Given Ambulat ory Pharmac y Influenza, injectable, quadrivalent, preservative free 1 2021 [id number] 150 SmithKline (SKB) complet ed Influenza , injectabl e, quadrival ent, preservat mendy free DoD COVID Vaccine Moderna 2020 [id number] complet ed COVID Vaccine Moderna 01/14/21 Given Ambulat ory Pharmac y SARS-COV-2 (COVID-19) vaccine, mRNA, spike protein, LNP, preservative free, 100 mcg or 50 mcg dose 2 [id number] 207 Moderna US, Inc. (MOD) complet ed SARS-COV- 2 (COVID-19 ) vaccine, mRNA, spike protein, LNP, preservat mendy free, 100 mcg or 50 mcg dose DoD COVID Vaccine Moderna 2020 Valerie odonnell Arm [id number] complet ed COVID Vaccine Moderna 12/17/20 Given Ambulat ory Pharmac y SARS-COV-2 (COVID-19) vaccine, mRNA, spike protein, LNP, preservative free, 100 mcg or 50 mcg dose 1 2020 CONNOR MAYA [id number] 207 Moderna US, Inc. (MOD) complet ed SARS-COV- 2 (COVID-19 ) vaccine, mRNA, spike protein, LNP, preservat mendy free, 100 mcg or 50 mcg dose [facility] influenza, injectable, quadrivalent- pf 2019 [id number] 150 Seqirus complet ed influenza , injectabl e, quadrival ent-pf 09/06/20 Given Ambulat ory Pharmac y Influenza, injectable, quadrivalent, preservative free 1 2019 [id number] 082 150 Seqirus (SEQ) complet ed Influenza , injectabl e, quadrival ent, preservat mendy free DoD hepatitis A adult vaccine 2019 [id number] 52 GlaxoSmithKli ne complet ed hepatitis A adult vaccine 06/14/20 Given Ambulat ory Pharmac y hepatitis A vaccine, adult dosage 2 2019 [id number] 52 [place] ([place]B) complet ed hepatitis A vaccine, adult dosage DoD influenza, injectable, quadrivalent- pf 2018 [id number] 594 150 Seqirus complet ed influenza , injectabl e, quadrival ent-pf 08/18/19 Given Ambulat ory Pharmac y Influenza, injectable, quadrivalent, preservative free 1 2018 [id number] 594 150 Seqirus (SEQ) complet ed Influenza , injectabl e, quadrival ent, preservat mendy free DoD adenovirus vaccine, live 2018 [id number] 3 143 Teva Pharmaceutica complet ed adenoviru s vaccine, live 04/24/19 Given Ambulat ory Pharmac y hepatitis A adult vaccine 2018 [id number] 52 GlaxoSmithKli ne complet ed hepatitis A adult vaccine 04/24/19 Given Ambulat ory Pharmac y hepatitis A vaccine, adult dosage 1 2018 [id number] 52 [facility] (SKB) complet ed hepatitis A vaccine, adult dosage DoD Adenovirus, type 4 and type 7, live, oral [id number] [facility]) complet ed Adenoviru s, type 4 and type 7, live, oral [facility] tetanus, diphtheria, acellular pertu is 2018 [id number] 115 GlaxoSmithKli ne complet ed tetanus, diphtheri a, acellular pertussis 04/19/19 Given Ambulat ory Pharmac y poliovirus vaccine, inactivated 2018 [id number] 10 sanofi pasteur complet ed polioviru s vaccine, inactivat ed 04/19/19 Given Ambulat ory Pharmac y meningococcal A,C,Y,W-135 (MCV4P) 2018 [id number] 114 sanofi pasteur complet ed meningoco ccal A,C,Y,W-1 35 (MCV4P) 04/19/19 Given Ambulat ory Pharmac y poliovirus vaccine, inactivated 1 2018 [id number] 10 Sanofi Pasteur (PMC) complet ed polioviru s vaccine, inactivat ed DoD meningococcal polysaccharid e (groups A, C, Y and W-135) diphtheria toxoid conjugate vaccine (MCV4P) 1 2018 [id number] 114 Sanofi Pasteur (PMC) complet ed meningoco ccal polysacch aride (groups A, C, Y and W-135) diphtheri a toxoid conjugate vaccine (MCV4P) DoD tetanus toxoid, reduced diphtheria toxoid, and acellular pertu is vaccine, adsorbed [address] (SKB) complet ed tetanus toxoid, reduced [...] Prevention' s HIV diagnostic algorithm. Refer to [facility] Lab Guide for additional information : [email or web address]. [facility]/ kj/kx5/EPIL ab/Pages/la b_guide.asp x Testing [...] Prevention' s HIV diagnostic algorithm. Refer to [employer] Lab Guide for additional information : [email or web address]. [facility] Fundingun[facility]/ kj/kx5/EPIL ab/Pages/la b_guide.asp x Testing performed by [employer] ce. 5600A-U SAFSAM EPILAB Infectiou s Disease [...] Prevention' s HIV diagnostic algorithm. Refer to [employer] Lab Guide for additional information : [email or web address]://[facility]/ kj/kx5/EPIL ab/Pages/la b_guide.asp x Testing performed by [employer] ce. 5600A-U SAFSAM EPILAB Miscellan eous Sendouts Repository Sample Received (09/03/23 8:37 AM) 09/03 N 5600A-U LeafSAM EPILAB Encounters Combined list of: 1) Encounters from Department of Veterans Affairs facilities going backup to the last 18 months, not all VA inpatient encounters are included; 2) Encounters from the Department of Defense facilities going backup to 280 months. Location Location Details Encounter Type Encounter Number Reason For Visit Attending Provider ADM Date DC Date Status Disposition [place] [address](Hea ring Conservat ion, BMT) OUTPATIENT [id number] CAM WAGNER Osman 04/23 Released w/o Limitations [facility] [place] [address](H earing Conserv ation, BMT) [place] [address]([facility]) OUTPATIENT [id number] Notes Entered by: Marisol BANSAL 26 Apr 2019 0727 ------- ------- ------- ------- -- Skin Eruptri ons=Kesha r MARILY PAYAN 04/26 Released w/o Limitations [facility] [place] [address], [place] [address]([facility]) OUTPATIENT [id number] Notes Entered by: Marisol BANSAL 30 Apr 2019 0717 ------- ------- ------- ------- -- F/U-*Ra sh* [Prior Dr. Joon rhodes] MARILY PAYAN 04/30 Released w/o Limitations [facility] [place] [address]([facility] [place] [address](ATR 331 TRS,BMT) OUTPATIENT [id number] Notes Entered by: ST ELHAM BLANCHARD N 03 May 2019 1347 ------- ------- ------- ------- -- new left knee pain KAILASH BLANCHARD 05/03 Released with Work/Duty Limitations [facility] [place] [address](A TR 331 TRS,BMT ) [facility], [place] [address]([facility]) OUTPATIENT [id number] Notes Entered by: DOMINICK FERNANDEZ 04 May 2019 1500 ------- ------- ------- ------- -- Knee pain MARIA D CANALES V 05/04 [facility]/D[facility] [place] [address]( ports Medicin e [facility], Surendra) [place] [address](ATR 331 TRS,BMT) OUTPATIENT [id number] Notes Entered by: ST JOCELYN BLANCHARDJOCELINE Perez 07 May 2019 1357 ------- ------- ------- ------- -- f/u left knee pain KAILASH BLANCHARD Ana 05/07 Released with Work/Duty Limitations [facility] [place] [address](A TR 331 TRS,BMT ) [place] [address](ATR 331 TRS,BMT) OUTPATIENT [id number] Notes Entered by: ST JOCELYN BLANCHARDJOCELINE N 16 May 2019 1441 ------- ------- ------- ------- -- f/u left knee pain KAILASH BLANCHARD Ana 05/16 Released with Work/Duty Limitations [facility] [place] [address](A TR 331 TRS,BMT ) [place] [address]([facility] [place]) OUTPATIENT [id number] Notes Entered by: EMY SCHULER 18 May 2019 1040 ------- ------- ------- ------- -- L knee MARIA D CANALES V 05/18 Released with Work/Duty Limitations [facility] [place] [address]( ports Medicin e [facility], [place]) [facility]) OUTPATIENT [id number] Notes Entered by: LORENA VELAZQUEZ 10 Jul 2019 0630 ------- ------- ------- ------- -- SICK CALL- pulled muscle in R leg 366 LIVE MCRAE 07/10 Released with Work/Duty Limitations [employer]([facility]) [employer](Phy sical Therapy) OUTPATIENT [id number] Strain of unspeci fied muscles , fascia and tendons at thigh level, right CHRISTINA Quiñones 07/31 Released w/o Limitations [employer](P hysical Therapy ) [employer](Phy sical Therapy TMAS) OUTPATIENT [id number] ELIJAH HAQUE 08/01 Released w/o Limitations [employer](P hysical Therapy TMAS) [employer](Phy sical Therapy TMAS) OUTPATIENT [id number] DONALD KING G 08/03 Released w/o Limitations [employer](P hysical Therapy TMAS) [employer](Phy sical Therapy TMAS) OUTPATIENT [id number] ELIJAH HAQUE 08/08 Released w/o Limitations [employer](P hysical Therapy TMAS) [employer](Phy sical Therapy TMAS) OUTPATIENT [id number] ELIJAH HAQUE 08/14 Released w/o Limitations [employer](P hysical Therapy TMAS) [employer](Phy sical Therapy TMAS) OUTPATIENT [id number] ELIJAH HAQUE 08/16 Released w/o Limitations [employer](P hysical Therapy TMAS) [employer](Phy sical Therapy TMAS) OUTPATIENT [id number] COMFORT ORTIZ 08/21 Released w/o Limitations [employer](P hysical Therapy TMAS) [employer](Phy sical Therapy TMAS) OUTPATIENT [id number] ELIJAH HAQUE 08/24 Released w/o Limitations [employer](P hysical Therapy TMAS) [employer](Phy sical Therapy) OUTPATIENT [id number] CHRISTINA WINSLOW 09/04 Released w/o Limitations [employer](P hysical Therapy ) [employer] Manpreet RONQUILLO ([facility]) TELE CONSULT [id number] Notes Entered by: EMETERIO SHAH 18 Jan 2020 1310 ------- ------- ------- ------- -- Medical Review EMETERIO MORALES 01/17 Released to [facility] [address] [place] [address])([facility]) [address] [place] [address])(Ashton demic Virus) OUTPATIENT [id number] POS/ASY MPTOMAT IAC MAX GANN 04/15 Released w/o Limitations [address] [place] [address])(P andemic Virus) [address] [place] [address])([facility]) OUTPATIENT [id number] Initial PHA JUSTEN ROWLAND 07/05 Released w/o Limitations [address] [place] [address])([facility]) [address] [place] [address])([facility]) OUTPATIENT [id number] Initial Eye Exam MED AYERS 07/05 Released w/o Limitations [address] [place] [address])([facility]) [address] [place] [address])([facility]) OUTPATIENT [id number] Notes Entered by: Lincoln BEDOLLA 11 Feb 2021 1408 ------- ------- ------- ------- -- RICA Roland 02/11 Released w/o Limitations [address] [place] [address])([facility]) [address] [place] [address])([facility]) OUTPATIENT [id number] Notes Entered by: EMETERIO SHAH 04 Jul 2021 0810 ------- ------- ------- ------- -- Fitness BRANDY Saldana 07/04 Released w/o Limitations [address] [place] [address])([facility]) [address] [place] [address])([facility]) TELE CONSULT [id number] Notes Entered by: EMETERIO SHAH 19 Aug 2021 1056 ------- ------- ------- ------- -- Follow Up - EMETERIO Valdivia 08/19 Other Not Elsewhere Classified [address] [place] [address])([address] [place] [address]) [address] [place] [address])([address] [place] [address]) OUTPATIENT [id number] Notes Entered by: Lincoln BEDOLLA 07 Oct 2021 1132 ------- ------- ------- ------- -- RICA Hassan 10/07 Released w/o Limitations [address] [place] [address])([address] [place] [address]) [address] [place] [address])([address] [place] [address]) TELE CONSULT [id number] Notes Entered by: EMETERIO SHAH 18 Nov 2021 1239 ------- ------- ------- ------- -- EMETERIO June 11/18 Other Not Elsewhere Classified [address] [place] [address])([address] [place] [address]) [address] [place] [address])([address] [place] [address]) OUTPATIENT [id number] Notes Entered by: EMETERIO SHAH 02 Jan 2022 0921 ------- ------- ------- ------- -- Fitness TODD Chiu 01/02 Released w/o Limitations [address] [place] [address])( [facility]) [address] [place] [address])([address] [place] [address]) TELE CONSULT [id number] Notes Entered by: EMETERIO SHAH 12 Feb 2022 1142 ------- ------- ------- ------- -- Alexa rodriguez January 2022 EMETERIO MORALES 02/12 Other Not Elsewhere Classified [address] [place] [address])([facility]) [facility]) OUTPATIENT [id number] Notes Entered by: EMMA JOSEPH 13 Jun 2022 1238 ------- ------- ------- ------- -- PROTECT ION WORKPLA CE INTERVI EW ADEOLA MANZANO 06/13 Released w/o Limitations [facility])([facility]) [facility]) OUTPATIENT [id number] PRIORIT Y JUSTEN BAR 09/04 Released with Work/Duty Limitations [address] [place] [address])([facility]) 8224R-126 MDG Outpatient [id number] RICA BRITTANIEAARON 07/02 Discharge Disposition: Home or Self Care 8224R-1 26 JORDAN 0055A-375 th [facility] Outpatient [id number] RICA BRITTANIEAARON 07/30 Discharge Disposition: Home or Self Care 0055A-3 75th [facility] 8224R-126 Clinic [id number] RICA BRITTANIEAARON 11/03 Discharge Disposition: Home or Self Care 8224R-1 26 MDG 8224R-126 MDG Clinic [id number] RICA BRITTANIEAARON 11/05 Discharge Disposition: Home or Self Care 8224R-1 26 MDG 8224R-126 MDG Outside Documentat ion Only [id number] 01/30 Discharge Disposition: Home or Self Care 8224R-1 26 MDG Procedures Combined list of: 1) Procedures from Department of Veterans Affairs facilities going back up to thelast 18 months, not all VA non-surgical procedures are included; 2) All procedures from the Department of Defense facilities. Procedure Procedure Type Code Date Perfomer Esteban Hernandez jose Athletic Training Re-evaluation Athletic Training Re-evaluation 12713 05/17/20 19 KAILASH BLANCHARD DoD Athletic Training Re-evaluation Athletic Training Re-evaluation 70525 05/07/20 19 KAILASH BLANCHARD Crutches, underarm, other than wood, adjustable or fixed, pair, with pads, tips and handgrips 05/03/20 19 KAILASH BLANCHARD [facility] Threshold Audiogram (Pure Tone) Threshold Audiogram (Pure Tone) 98185 04/23/20 19 CAM WAGNER Exercises A isted Exercises For ROM Exercises Assisted Exercises For ROM 43438 CHRISTINA RAY Physical Therapy: ___ Se ion Segments, 15 Minutes Each Physical Therapy: ___ Session Segments, 15 Minutes Each [id number] ELIJAH HAQUE Physical Therapy Neuromuscular Re-education Physical Therapy Neuromuscular Re-education 07205 ELIJAH HAQUE Modalities Cryotherapy Cold Packs Modalities Cryotherapy Cold Packs 58117 ELIJAH HAQUE Physical Medicine Physical Therapy Re-Evaluation Physical Medicine Physical Therapy Re-Evaluation 02568 CHRISTINA RAY RE-EVAL,PHYSICAL THERAPY EST PLAN OF CARE,REQ:EXAM,REV, HX & USE,STAND TESTS &SINDHU REQ;REV PLAN OF CARE USING STAND PAT ASSESS INSTR &/SINDHU ASSESS FUNC OUTCOME TYP,20 MIN SPENT [id number]-[id number] W PAT&/FAM 09/04/20 19 [facility] THERAPEUTIC PROCEDURE,1 OR MORE [...] FOR SITTING AND/OR STANDING ACTIVITIES 08/16/20 19 DoD THERAPEUTIC PROCEDURE,1 OR MORE AREAS,EACH 15 MINUTES;NEUROMUSCU LAR REEDUCATION OF MOVEMENT,BALANCE,C OORDINATION,KINEST HETIC SENSE,POSTURE,AND/ OR PROPRIOCEPTION FOR SITTING AND/OR STANDING ACTIVITIES 08/14/20 19 DoD THERAPEUTIC PROCEDURE,1 OR MORE AREAS,EACH 15 MINUTES;NEUROMUSCU LAR REEDUCATION OF MOVEMENT,BALANCE,C OORDINATION,KINEST HETIC SENSE,POSTURE,AND/ OR PROPRIOCEPTION FOR SITTING AND/OR STANDING ACTIVITIES 08/08/20 APPLICATION OF A MODALITY TO 1 OR MORE AREAS; HOT OR COLD PACKS 08/03/20 APPLICATION OF A MODALITY TO 1 OR MORE AREAS; HOT OR COLD PACKS 08/01/20 THERAPEUTIC PROCEDURE, 1 OR MORE AREAS, EACH 15 MINUTES; THERAPEUTIC EXERCISES TO DEVELOP STRENGTH AND ENDURANCE, RANGE OF MOTION AND FLEXIBILITY 07/31/20 DoD No data available for this section Ambulato ry Pharmacy Social History Combined list of available smoking, tobacco, and other social history from Department of Defense and Veterans Affairs facilities. Social History Type Response Date Comment [facility] e Sex Representation Female (finding) 01/08/2022 Unknown Organization This section is an empty social history section. [facility] Sexual Orientation Ambula tory Pharmacy Gender identity [...] today. She canceled her appt with the [address] [place] [address] for her post deployment shoulder injury. 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 Patient s PHAQ responses suggest Routine [...] found. 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 Y VA Disability Rating: N o If, Yes please update below. Event Manager PHAQ review note: Routine PHAQ review completed. Member is due to complete her MHA. 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. Member on profile until 06/19/2025. Member wished to enroll in the [place] Registry. Will explain the Registry is an opt out option now. Member does not report any allergies and does not wear any corrective lenses. Member reports good health with no c/o pain. 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 [id number] c opied below. Diagnosis is [id number] Medication reconciliation was accomplished. IMR requirements checked in [facility] (all GREEN). General alexis whitney performed i n chart review. Denies SI/HI. All questions answered. Member has no n on emergent positive responses on P KUMAR. I t has not inhibited member from performing their duties. Member is assumed fit for duty. Denies any other acute or chronic health concerns currently. Mental health resources to include the mental health clinic, [facility], [employer], and One Source discussed with patient v [...] issues in the future. COPY OF PHAQ2 [id number]: A NNUAL PERIODIC HEALTH ASSESSMENT I. FORENSIC IDENTIFICATION SPECIALIST INFORMATION AND DEMOGRAPHICS (SMI) 1. Last Name: IVANA 2. First Name: BERT 3. Middle Name: DALI 4. Assessment Date: 5. : 6. Age: 28 7. Gender: F 8. DoD ID Number: [id number] 9. Service Branch: [employer] 10. 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 Duty Station/Location: [place] 15. UIC: [id number] 16. Is this your first Periodic Health Assessment (PHA)?: N 17. Are you enrolled in a secure messaging system with your health care provider?: 18. Current contact information: Preferred Method: Day Time Phone DSN: [id number] Day Time Phone: [phone] Night Time Phone: [phone] Email 1: [email or web address] Email 2: Address: [address] [place] [address]: [facility]: [place] Zip Code: [address] 19. Point of contact who can always reach you: Name: Ronaldo Pozo Phone 1: [phone] Phone 2: EMAIL: [email or web address] Address: [address] [place] [address] City: [place] State: [place] Zip Code: [address] II. DEPLOYMENT INFORMATION (DEP) 1. [ 1 ] Total number of deployments in the PAST 5 YEARS 2. [ [employer] [place] ] Primary country of last deployment [...] easily startled? 6. d. [ No ] [place] numb or detached from others, activities, or your surroundings? 6. e. [ Not answered ] [place] guilt or unable to stop blaming yourself [...] like to schedule a visit with a emulsion operator, mental health care provider, or a community [...] 8. [ None ] What prescriptions or qwxt-boj-hxdxbiu medications are you CURRENTLY taking for health [...] had a cholesterol check by a health intensive care anaesthetist within the PAST 5 YEARS? 13.a. In [...] discuss any health concerns? XI. SEPARATION AND PRISON 1. [ No ] Are you planning to separate or retire within the next year from Active Duty or [place] Duty (activated for greater than 30 continuous days) OR do you intend to file a claim for disability compensation with the [employer]? PART B. RECORD REVIEW AND RECOMMENDATIONS I. RECORD REVIEWER INFORMATION 1. Last Name: CARLTON 2. First Name: GLENDY 3. Middle Name: Earlene 4. Service Branch: [employer] 5. Status: Active [employer] [place] or Full-Time Support 6. 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 EMAIL: [email or web address] 8. Facility: [facility] 9. Unit: [facility] 10. Address: [address] [place] [address] 11. State: [place] 12. Zip Code: [address] 13. 14. Date Record Review: II. MEDICAL SCREENING 1. [ ] Date of member of technical staff's most recent PHA 2. [ 5 feet 3 inches Date: ] member of technical staff's most recently documented height 3. [ 180 pounds Date: ] member of technical staff's most recently documented weight 4. [ 95/62 Date: ] member of technical staff's most recently documented blood pressure reading 5. [ No ] Does the member of technical staff have a history of abnormal blood pressure since their last PHA? 6. [ Yes ] Does the member of technical staff have a laboratory test of sickle cell trait documented in their permanent medical record? 7. [ No Cholesterol Test Documented ] What is the date of the member of technical staff's most recently documented cholesterol test? 9. [ Vitamins ] List of member of technical staff's active medications listed in their permanent medical record 10. [ No ] Is there a discrepancy between the active medication record review and the member of technical staff's self-reported list of medications? 11. [ Civilian Dr for ] List documented significant care the member of technical staff has received since their last PHA from a provider OUTSIDE the Health System 12. [ Yes: Civilian Dr for ] Is there a discrepancy between the member of technical staff's list of OUTSIDE care (from OTH5), and the OUTSIDE care found in the record? 13. [ No Inside Care Documented ] List documented significant care the member of technical staff has received since their last PHA from a provider INSIDE the Health System 15. [ Not Answered ] Confirm that vaccine exemptions are listed in the medical record for each vaccine listed III. OCCUPATION-SPECIFIC EXAMINATIONS 2. [ ] When was the member of technical staff's most recently documented evaluation? IV. FAMILY HISTORY AND LIFESTYLE 1. [ Yes ] Does the [id number] reflect the member of technical staff's reported family history? V. WOMEN'S HEALTH 3. [ Normal ] Date and result of the most recent Pap test 4. [ ] Notes from review of health records associated with history of abnormal Pap, colposcopy, excisional procedure, or cryotherapy . DEPLOYMENT-RELATED HEALTH ASSESSMENTS 1. [ No ] Based on your check of records, does the member of technical staff have any due or overdue deployment health assessments which need to be completed with this PHA? VII. INDIVIDUAL MEDICAL READINESS 1. [ No ] Does the member of technical staff have an Assignment Limitation Code C? 3. [ Classification: 1 ] Most recently documented dental exam 4. [ Yes ] Is the member of technical staff current on all required immunizations in the immunization tracking system? 6. Does the member of technical staff have the following laboratory tests documented in [...] need to be forwarded to the Health Bioprocess Engineer completing PART C: Routine PHAQ review complete. See notes in [facility]. Date Record Review Completed: PART C. HEALTH CARE PROVIDER I. MENTAL HEALTH ASSESSMENT (MHA) PROVIDER INFORMATION 1. Last Name: CHARLIE 2. First Name: MARIELA 3. Middle Name: Leslie 4. Service Branch: [employer] 5. 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 EMAIL: [email or web address] 8. Facility: [address] [facility] 9. Unit: [facility] 10. Address: [address] [place] [address] 11. State: [place] 12. Zip Code: [address] 13. 14. Date HCP Review initiated: 1. Member marked that they did not have a concern or a difficulty with a major life stressor. 2. Address concerns identified on member questions 2 and 3. History of mental health care: N/A Member's response: Provider's comments: Medications: N/A Member's response: pre- vitamins Provider's comments: 3. Member's AUDIT-C screening [...] 11. Comments: 13. Supplemental services recommended/information provided: [facility] Date MHA Certified: III. PERIODIC HEALTH ASSESSMENT (PHA) PROVIDER INFORMATION 1. Last Name: CHIOMA 2. First Name: RICA 3. Middle Name: Arley 4. Service Branch: [employer] 5. 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 Title: Physician (DO COCO) 7. EMAIL: [email or web address] 8. Facility: [address] [facility] 9. Unit: [facility] 10. Address: [address] [place] [address] 11. State: [place] 12. Zip Code: [address] 13. Phone: [phone] 14. Date HCP Review initiated: IV. PERIODIC HEALTH ASSESSMENT PROVIDER RECOMMENDATIONS and REFERRALS 1. Provider concerns with this assessment: No issues or concerns identified V. SUMMARY AND COMMENTS 1. Additional information summarizing findings during the member of technical staff assessment: 2. Provider Comments: . INDIVIDUAL MEDICAL READINESS DISPOSITION DETERMINATION KEVIN: Not Ready DEN: Ready IMM: Ready LAB: Ready ME: Ready IMR Status: Partially Medically Ready VII. SERVICE MEDICAL DEPLOYABILITY EVALUATION INDICATED Based on your review of all documentation, is the member of technical staff medically deployable without limitations? Reference [facility] 6490.07 No (member of technical staff currently has a concern/medical condition that DOES NOT require duty limitation(s), but COULD limit deployability) Date PHA Completed: END OF [id number] REPORT PROVIDER: Colonel [place] ANG, MC, SFS Chief, Aerospace Medicine, [facility] [place] [employer] Guard Email: 1 [email or web address] COMM: [phone] DSN:[phone] FAX: [phone] Extracted from:Title: [facility] Author: RIOS JOHN EMT Date: 11/03/24 Patient is here to complete her DHA3. 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. Was doing some lifting of heavy materials and reports sore left shoulder. Will be seeing [facility] in a few days. Member reports symptoms getting better. No limiting conditions from recent deployment at this time. POST DEPLOYMENT HEALTH RE-ASSESSMENT ([id number] SEP 2023) Last Name: IVANA First Name: BERT Mesa ID: [id number] Date of : Gender: Female Service Branch: [employer] Component: [employer] Pay Grade: E5 --- Date departed theater: Country: [place] --- Summary of provider's identified concerns needing referral: Recommended referral(s): None. Referral Time Comments: --- Provider's Name: CHRISTINA RUSSO, [facility], [facility], Date: --- 1. Address concerns identified on [...] comments: nothing to add. To see [facility] 05 NOV 2024 on this. Hospitalized since [...] or easily startled? 13. d. No : [place] numb or detached from others, activities, or your surroundings 13. e. No : [place] guilt or unable to stop blaming yourself [...] like to schedule a visit with a emulsion operator, mental health care provider, or a community support counselor? Extracted from:Title: Deployment Meds Author: Glendy Roldan Date: 12/05/23 Member completed her DHA1 during December and requires BW/CW meds. G6PD: Normal Addendum by RICA BEDOLLA on December 05, 2023 13:36 FIRESTOPPER INSTALLER [facility] predeployment orders for BW/CW If G6PD deficient we are substituting doxy for cipro ALLERGIES: No Known Allergies BW/CW ordered for pharmacy o Three Antidote Treatment Nerve Agent Auto-injectors (ATNAA); o One Diazepam (KATHLEEN) Auto-injector; o Six Ciprofloxacin 500mg tablets - or S ix Doxycycline 100mg tablets; o Forty-two Pyridostigmine [place] (HUMBERTO) tablets; o Fourteen Potassium Iodide 130mg tablets; o One Reactive Skin Decontamination Lotion (RSDL) pouch. Extracted from:Title: INES1 appointment Author: PORTIA MCFARLANE Date: 12/03/23 Member here for [facility] appointment. Addendum by LINDA AMOS on December 03, 2023 10:51 FIRESTOPPER INSTALLER PRE-DEPLOYMENT HEALTH ASSESSMENT ([id number] JUL 2015) Last Name: IVANA First Name: BERT Mcnulty Number: [id number] Date of : Gender: Female Service Branch: [employer] Component: [employer] Pay Grade: E4 --- Estimated date of upcoming deployment: Country: [place] Number of previous deployments: 0 --- [...] watchful or easily startled? No 11. d. [place] numb or detached from others, activities, or [...] PHAQ Review Author: MED PETER Date: 10/07/23 [facility] highway technician has completed annual PHA record review [...] medications found. Allergies: No Known Allergies Does dining service inspector need Annual Mental Health review? YES VA Disability Rating: No If yes please update below. 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 Member has nothing more to report. PHAQ ready for PCM review and signature. 05/08/2025 [id number] [facility] Functional Status Combined list of recent functional and cognitive assessments recorded at Department of Defense and Veterans Affairs (VA).VA Functional [place] Measurement (FIM) Scale: 1 = Total Assistance (Subject = 0% +), 2 = Maximal Assistance (Subject = 25% +), 3 = Moderate Assistance (Subject = 50% +), 4 = Minimal Assistance (Subject = 75% +), 5 = Supervision, 6 = Modified [place] (Device), 7 = Complete [place] (Timely, Safely). Assessment Date/Time Source Assessment Type Assessment Skill Assessment Score Assessment Details No data available for this section
[2025-05-08] MEDS: LACTATED RINGERS 1,000 ML 125 ML IV CONT ×3 (16:10→21:03)
[2025-05-08] MEDS: OXYTOCIN 30 UNITS/NS 500 ML 30 UNITS/500 ML BAG IV CONT (16:14)
--- NOTE | 2025-05-08 16:15 | LDADM ---
This patient, Romelia Pozo, was admitted to Labor/Delivery/Recovery 104 on 05/08/25 at 14:25. Plans for labor, pain management and were discussed with patient. Patient/family oriented to hospital policies and general routines including ID bracelet, bed and alarms, visiting hours, pain management, procedures, bathroom and other care routines, personal items, smoking policy, room service/diet and guest tray routines, infant security routines, and visiting hours. Patient/Family are encouraged to report perceived risks to care and to ask questions if they do not understand what they are told or what they should do. See OBIX for further documentation.
[2025-05-08 16:34] LABS: Hematocrit 34.4 % (37.0-47.0); Hemoglobin 11.3 g/dL (12.0-15.0); Immature Granulocyte Percent A 1.0 % (0-0.5); Lymphocytes Absolute Auto 1.87 K/mm3 (0.9-3.2); Mean Corpuscular HGB Conc 32.8 g/dl (32-36); Mean Corpuscular Hemoglobin 28.2 pg (26-34); Mean Corpuscular Volume 85.8 fl (80-100); Nucleated Red Blood Cells Absolute Auto 0.000 K/mm3 (0.0-0.012); Nucleated Red Blood Cells Perc 0.0 % (0.0-0.2); Platelet Count Result 282 k/mm3 (150-375); Red Blood Count 4.01 M/mm3 (4.2-5.4); White Blood Count 7.3 K/mm3 (4.5-10.0)
--- NOTE | 2025-05-08 17:20 | WPDANESEPP ---
Anes - Eval Pre Procedure Procedure: Labor epidural Date/Time: 05/08/25 17:20 Surgeon: Rukhsana Preop Diagnosis: Pain during labor Pre Op Diagnosis: IOL Patient Data Age: 29 Gender: F Height: Weight: Last Vital Signs Pulse 58 L 05/08/25 17:16 BP 114/75 05/08/25 17:16 Allergies Allergy/AdvReac Type Severity Reaction Status Date / Time No Known Allergies Allergy Verified 05/08/25 16:43 Home Medications ?Medication ?Instructions ?Recorded ?Confirmed ?Type ferrous sulfate 325 mg (65 mg 325 mg PO DAILY 04/23/25 05/08/25 History iron) tablet (iron) vits 26-iron ps 29 mg 1 cap PO DAILY 04/23/25 05/08/25 History iron-folic acid 1 mg-dha 200 mg capsule Laboratory Tests 05/08/25 16:20 WBC 7.3 K/mm3 (4.5-10.0) RBC 4.01 L M/mm3 (4.2-5.4) Hgb 11.3 L g/dL (12.0-15.0) Hct 34.4 L % (37.0-47.0) MCV 85.8 fl (80-100) MCH 28.2 pg (26-34) MCHC 32.8 g/dl (32-36) RDW 13.6 % (11.5-14.5) Plt Count 282 k/mm3 (150-375) MPV 11.5 H fl (7.4-10.4) Immature Gran % (Auto) 1.0 H % (0-0.5) Neut % (Auto) 62.2 % (45.5-73.1) Lymph % (Auto) 25.8 % (18.3-44.2) [place] % (Auto) 9.2 H % (2.6-8.5) Eos % (Auto) 1.0 % (0-4.4) Baso % (Auto) 0.8 % (0.2-1.2) Lymph # (Auto) 1.87 K/mm3 (0.9-3.2) [place] # (Auto) 0.7 H K/mm3 (0.1-0.6) Eos # (Auto) 0.1 K/mm3 (0-0.3) Baso # (Auto) 0.1 K/mm3 (0.0-0.1) Abs Immat Gran (auto) 0.07 H K/mm3 (0.00-0.031) Absolute Neuts (auto) 4.5 K/mm3 (1.3-6.7) Absolute Nucleated RBC 0.000 K/mm3 (0.0-0.012) Nucleated RBC % 0.0 % (0.0-0.2) Blood Type A Positive Antibody Screen Pending Patient hx anesthesia problems: none Family hx anesthesia problems: none Results Review: All pre-operative results and documents have been reviewed as part of the pre-operative evaluation. [facility] Past Medical History Medical History (Updated 05/08/25 @ 17:21 by Richelle Colvin CRNA) IUP (intrauterine ), incidental Family History Family History (Updated 04/30/25 @ 12:31 by Chichi Black RN) Other Asthma Cancer Diabetes mellitus Heart disease Hypertension Social History Social History Substance use: never Do You Feel Safe in your Home?: Yes Lack of Transportation: No Lack of Food: Never True Current Housing: I Have Housing Concerned About Future Housing: No Difficulty Paying Gas/Electric Bills: No Difficulty Paying for Meds: No Currently Unemployed: No Education: High School Diploma/GED Difficulty w/ Childcare or Family Care: No Spiritual care concerns: No Exam Day of Procedure 05/08/25 17:20
[2025-05-08 17:59] LABS: Syphilis IgG/IgM Antibody Non-Reactive (Nonreactive)
[2025-05-08] MEDS: PHENYLEPHRINE 1,000 MCG/10 ML SYRINGE 100 MCG IV PUSH ×2 (18:39→19:31)
[2025-05-08] MEDS: SODIUM CHLORIDE 0.9% IV 300 ML 600 ML I-UTERINE (18:47)
--- NOTE | 2025-05-08 18:47 | PM.IMHP ---
H&P: HPI History of Present Illness Date/Time: 05/08/25 18:47 Chief Complaint: pt admitted for IOL. pt in office today and noted decreased to no movement since 05/07/25. Upon review of her US, CAN x2, NST today in office showed a 2 minute deceleration. complicated by 2 vessel cord, polyhydramnios, hx gestational htn in previous . discussed with dr. vences and rec delivery. Review of Systems Review of Systems: All systems reviewed & are unremarkable except as noted in HPI and below PMFSH Past Medical History Medical History (Updated 05/08/25 @ 18:55 by Jammie Silvestre CNM) IUP (intrauterine ), incidental Family History Family History (Updated 05/08/25 @ 17:51 by Merlene Messina RN) Mother Asthma Hypertension Father Cancer Diabetes mellitus Heart disease Renal cancer Social History Social History Substance use: never Do You Feel Safe in your Home?: Yes Lack of Transportation: No Lack of Food: Never True Current Housing: I Have Housing Concerned About Future Housing: No Difficulty Paying Gas/Electric Bills: No Difficulty Paying for Meds: No Currently Unemployed: No Education: High School Diploma/GED Difficulty w/ Childcare or Family Care: No Spiritual care concerns: No Meds Home Medications and Allergies Home Medications ?Medication ?Instructions ?Recorded ?Confirmed ?Type ferrous sulfate 325 mg (65 mg 325 mg PO DAILY 04/23/25 05/08/25 History iron) tablet (iron) vits 26-iron ps 29 mg 1 cap PO DAILY 04/23/25 05/08/25 History iron-folic acid 1 mg-dha 200 mg capsule Allergies Allergy/AdvReac Type Severity Reaction Status Date / Time No Known Allergies Allergy Verified 05/08/25 16:43 Vital Signs Vital Signs - 24 hr 05/08/25 14:53 05/08/25 15:01 05/08/25 15:16 Pulse Rate 63 69 73 Blood Pressure 115/69 121/78 124/85 Pulse Oximetry Oxygen Delivery 05/08/25 15:31 05/08/25 16:12 05/08/25 16:15 Pulse Rate 67 70 Blood Pressure 125/79 115/74 Pulse Oximetry Oxygen Delivery Room Air 05/08/25 16:16 05/08/25 16:31 05/08/25 16:46 Pulse Rate 69 79 70 Blood Pressure 116/73 117/77 120/82 Pulse Oximetry Oxygen Delivery 05/08/25 17:01 05/08/25 17:16 05/08/25 17:31 Pulse Rate 67 58 L 62 Blood Pressure 119/73 114/75 114/74 Pulse Oximetry Oxygen Delivery 05/08/25 17:46 05/08/25 17:59 05/08/25 18:01 Pulse Rate 91 81 81 Blood Pressure 129/87 123/79 123/73 Pulse Oximetry 100 100 Oxygen Delivery 05/08/25 18:03 05/08/25 18:08 05/08/25 18:10 Pulse Rate 79 Blood Pressure 111/74 Pulse Oximetry 99 100 Oxygen Delivery 05/08/25 18:11 05/08/25 18:13 05/08/25 18:16 Pulse Rate 83 89 93 Blood Pressure 110/78 119/77 114/73 Pulse Oximetry 100 Oxygen Delivery 05/08/25 18:18 05/08/25 18:19 05/08/25 18:22 Pulse Rate 101 H 108 H Blood Pressure 106/68 96/58 L Pulse Oximetry 100 Oxygen Delivery 05/08/25 18:23 05/08/25 18:25 05/08/25 18:28 Pulse Rate 121 H 114 H Blood Pressure 100/58 L 95/55 L Pulse Oximetry 100 100 Oxygen Delivery 05/08/25 18:31 05/08/25 18:33 05/08/25 18:34 Pulse Rate 109 H 109 H Blood Pressure 101/51 L 89/43 L Pulse Oximetry 98 Oxygen Delivery 05/08/25 18:37 05/08/25 18:38 05/08/25 18:40 Pulse Rate 90 56 L Blood Pressure 77/38 L 110/61 Pulse Oximetry 100 Oxygen Delivery 05/08/25 18:43 05/08/25 18:46 Pulse Rate 89 101 H Blood Pressure 96/67 L 105/68 Pulse Oximetry 99 Oxygen Delivery Exam Const: General: cooperative, healthy appearing and comfortable Neck: Neck: normal visual inspection Resp: Effort & Inspection: normal respiratory effort Cardio: Rate: regular rate Rhythm: regular rhythm GI: Other: soft : Other: SVE 5/60/-3 AROM large amount of clear, odorless fluid, IUPC placed Back/Spine/Pelvis: Back: no CVA tenderness Skin: General skin exam: normal color Neuro: General: patient oriented x3 H&P: Results Labs Labs: Short CBC 05/08/25 Range/Units 16:20 WBC 7.3 (4.5-10.0) K/mm3 Hgb 11.3 L (12.0-15.0) g/dL Hct 34.4 L (37.0-47.0) % Plt Count 282 (150-375) k/mm3 Assessment and Plan Assessment and plan (1) Decreased movement: Code(s): O36.8190 - Decreased movements, unspecified trimester, not applicable or unspecified Status: Acute Plan decreased movement at 37 weeks deceleration on NST discussed with pt delivery at 37 weeks, risk of transfer if respiratory distress. also discussed risks of section if intolerance to labor. consents signed and pt agreed to IOL.
[2025-05-08] MEDS: SODIUM CHLORIDE 0.9% IV 1,000 ML 150 ML I-UTERINE (20:03)
--- NOTE | 2025-05-08 22:15 | S_PTH ---
PATIENT: Romelia Pozo LOC: [facility]2 U#:[id number] AGE/SX: 29/F ROOM: 289 RE05/08/[address]: Hernán Milian MD : 1995 BED: 00 DIS: 05/10/2025 SPEC #: [id number] RECD: 05/09/25 11:35 STATUS: MARILIN REQ #: [id number] NOÉ: 05/08/25 22:[address]: Jammie Silvestre DEPT: [facility] Surgical RECD BY: Nelly Sigala ENTERED: 05/09/25 11:35 SP TYPE: Surgical OTHR DR: Hernán Milian MD PHYSICIAN NOT ON STAFF Tissues: A - Placenta Procedures: Hematoxylin and Eosin Stain Gross and Microscopic Level 5
--- NOTE | 2025-05-08 22:19 | PM.OBPRVD ---
OB - Vaginal Delivery Note Procedure Delivery date: 05/08/25 Events: Other (Decreased movement, poly, 2 vessel cord) Intrapartal Events: Decelerations Induction method: AROM and Per Pitocin Protocol Delivery monitor: External FHT and Internal Uterine Route of delivery: Episiotomy description: None Laceration Description: None Specimen: Yes Quantitative Blood Loss (ml): 100 Anesthesia type: Epidural Disposition: Floor Complications: No immediate complications Baby Date of : 05/08/25 Time of : 22:11 Gestational Age by Date: 37 Infant gender: Female presentation: vertex position: Left Occiput Anterior Placenta delivery description: Expressed Cord Vessel Description: 2 Vessels, Nuchal Cord, Tight (x2) and Clamped/Cut score one minute: 9 score five minutes: 9
[2025-05-08] MEDS: OXYTOCIN 30 UNITS/NS 500 ML 30 UNITS/500 ML BAG 125 UNITS IV CONT (22:50)
[2025-05-09] VITALS (11 sets, daily range): BP systolic 101–135; BP diastolic 64–80; PULSE 50–69; RESP 16–18; TEMP 36.9–37.6; O2SAT 98–99
[2025-05-09] MEDS: BENZOCAINE 20% AER SPR (*SP) 56 GM CAN 1 SPRAY TOPICAL (00:35)
[2025-05-09] MEDS: WITCH HAZEL 40 PADS 1 PAD TOPICAL (00:35)
[2025-05-09] MEDS: ACETAMINOPHEN 325 MG TABLET 650 MG PO ×3 (00:57→22:17)
[2025-05-09] MEDS: IBUPROFEN 600 MG TABLET PO ×3 (00:58→22:17)
[2025-05-09 04:31] LABS: Hematocrit 30.4 % (37.0-47.0); Hemoglobin 10.4 g/dL (12.0-15.0)
--- NOTE | 2025-05-09 07:00 | OBPPTRN ---
Patient transferred to post room #289 via wheelchair. Support person present. Oriented to unit, room, information board, rooming in, admission packet and security measures. Patient verbalizes understanding.
[2025-05-09] MEDS: DOCUSATE SODIUM 100 MG CAPSULE PO ×2 (09:10→16:14)
[2025-05-09] MEDS: MULTIVIT/MIN/PREN/FOL AC/IRON TABLET 1 TAB PO (09:10)
--- NOTE | 2025-05-09 10:30 | WPDANLDPN2 ---
Anes-Prog Note L&D Date/Time: 05/09/25 10:30 Comfortable throughout: labor and delivery Neuraxial method: epidural Epidural/Spinal procedure site: clean & non-tender Neuro status: Neuro function grossly intact. Cardiovascular status: normal Respiratory status: normal Airway patency: baseline Mental status: baseline Post-Op hydration status: normal Vital Signs: Last Vital Signs Temp 98.4 F 05/09/25 08:00 Pulse 65 05/09/25 08:00 Resp 16 05/09/25 08:00 BP 101/73 05/09/25 08:00 Pulse Ox 98 05/09/25 08:00 O2 Del Method Room Air 05/09/25 01:00 Pain score (VAS): 0/10 I/O: Intake & Output 05/08/25 05/09/25 05/09/25 23:59 07:59 15:59 Intake Total 2000 Output Total 100 75 Balance 1900 -75 Post-procedural complaints: none Patient feedback: Patient satisfied with anesthetic care.
--- NOTE | 2025-05-09 12:07 | P.PNOB_ITS ---
OB - PN: Subj Subjective Date/time seen: 05/09/25 12:07 Patient comments: no complaints, pain well controlled, incisional pain, tolerating diet and flatus present OB - PN: Obj Data Labs 05/09/25 04:01 Labs: Laboratory Results - last 24 hr 05/08/25 05/09/25 16:20 04:01 WBC 7.3 RBC 4.01 L Hgb 11.3 L 10.4 L Hct 34.4 L 30.4 L MCV 85.8 MCH 28.2 MCHC 32.8 RDW 13.6 Plt Count 282 MPV 11.5 H Immature Gran % (Auto) 1.0 H Neut % (Auto) 62.2 Lymph % (Auto) 25.8 [place] % (Auto) 9.2 H Eos % (Auto) 1.0 Baso % (Auto) 0.8 Lymph # (Auto) 1.87 [place] # (Auto) 0.7 H Eos # (Auto) 0.1 Baso # (Auto) 0.1 Abs Immat Gran (auto) 0.07 H Absolute Neuts (auto) 4.5 Absolute Nucleated RBC 0.000 Nucleated RBC % 0.0 Syphilis IgG/IgM Ab Non-reactive Blood Type A Positive Antibody Screen Negative OB - PN A/P Plan day: 1 Plan: routine care Comments: No problems, routine care Time Spent With Patient Time: Total time spent is greater than 50% in coordination of care (as documented) at patient's floor/unit and/or counseling patient: Exam 2 Const: General: comfortable, no acute distress and alert Resp: Effort & Inspection: normal respiratory effort Auscultation: no crackles, no rales and no rhonchi Cardio: Rate: regular rate Heart sounds: no click, no murmurs and no rubs GI: Inspection: non-distended GI Palp: No Tenderness to palpation present (GI) Auscultation: normal bowel sounds Other: Incision - CDI Extrem: General: normal to inspection, no pedal edema and no calf tenderness
--- NOTE | 2025-05-10 07:36 | P.PNOB_ITS ---
OB - PN: Subj Subjective Date/time seen: 05/10/25 07:36 Interval history: pp day 2 doing well desires d/c home OB - PN: Obj Data Labs 05/09/25 04:01 OB - PN A/P Plan day: 2 Plan: routine care Time Spent With Patient Time: Total time spent is greater than 50% in coordination of care (as documented) at patient's floor/unit and/or counseling patient: Review of Systems 2 Review of Systems: All systems reviewed & are unremarkable except as noted in HPI and below Exam 2 Const: General: cooperative, healthy appearing and comfortable Chest: Chest palpation & inspection: normal inspection of the chest Resp: Effort & Inspection: normal respiratory effort Cardio: Rate: regular rate Skin: General skin exam: normal color
--- NOTE | 2025-05-10 07:43 | P.DS_ITS ---
DS: Admitting Diagnosis Discharge Date 05/10/25 Admitting Diagnosis IOL decreased movement DS: Discharge Diagnosis Discharge Diagnosis (1) (normal spontaneous vaginal delivery): Code(s): O80 - Encounter for full-term uncomplicated delivery Status: Acute OB - DS: Summary OB Procedures : None OB Procedures Intrapartum: Spontaneous Vag Delivery OB Procedures: : None Peripartum Data Laceration Description: None Episiotomy description: None Time Spent with Patient Time attestation: Total time spent providing and/or coordinating discharge services: DS: Data Data Completed and Pending Pending studies at discharge: Pending at discharge 05/08/25 22:15 Surgical [PTH] Routine Discharge Plan Discharge Attending physician on discharge: Hernán Milian Consulting providers: Jammie Silvestre Discharging Clinician: Jammie Silvestre Patient Disposition: Home Activity: pelvic rest Diet: regular Patient Instructions: Antibiotic Form Patient Language: Serbian Stand Alone Forms: General Discharge Information Follow-up/Referrals: Jammie Silvestre, CNM [Certified Nurse Insurance Sales Executive] - 4 Weeks Discharge Medications: Continued 26-iron [id number] 29 mg iron- 1 mg-200 mg capsule 1 cap PO DAILY ferrous sulfate [iron] 325 mg (65 mg iron) tablet 325 mg PO DAILY Date of admission: 05/08/25 14:25 Primary Care Provider: PHYSICIAN NOT ON STAFF,NONSTAFF Admitting Provider: Hernán Milian Attending physician on admission: Hernán Milian Condition: Stable
[2025-05-10 08:35] VITALS: BP 108/59; PULSE 60; RESP 16; TEMP 37.1; O2SAT 98
== END 2025-05-10 14:25 | disposition home or self-care (01) | DRG 807 ==
LOC: ANHLDR 14:31 → ANHOB2 05-09 07:01
PROVIDERS: Advanced Practice Midwife; Admitting Provider Obstetrics & Gynecology; Visit Provider Obstetrics & Gynecology
DX: O76 Abnormality in fetal heart rate and rhythm complicating labor and delivery (principal); Z37.0 Single live birth; O40.3XX0 Polyhydramnios, third trimester, not applicable or unspecified; O36.8130 Decreased fetal movements, third trimester, not applicable or unspecified; O69.1XX0 Labor and delivery complicated by cord around neck, with compression, not applicable or unspecified; Z3A.37 37 weeks gestation of pregnancy
CPT/HCPCS: 36415; 85014; 85018; 85025; 86593; 86850; 86900; 86901; 88307; A9270; J2371; J2590; J2795; J7030; J7120